=== PATIENT | male | born 1945 | race Caucasian/White ===

== ENCOUNTER 2021-03-01 02:44 | Inpatient (IN) | payer MEDICARE, OTHER ==
[~2021-03-01] VITALS: Ht 175.3 cm; Wt 75.7 kg
--- NOTE | 2021-03-01 02:50 | NUR ---
pt bibra c/o sob x30min. Pt aaox4 breathing rapidly. Pt has hx of esrd and refusing dialysis. Upon assessment pt has upper and lower extremity swelling. 18 g in rt ac initiated. Wheezes are heard upon assessment as well. Pt on 4L O2 NC saturating 97%. Pt attached to monitor and pox. Skin is warm, dry, and intact. Pt given blanket and call light within reach
--- NOTE | 2021-03-01 03:06 | NUR ---
called lab for specimen pickup and covid swab
--- NOTE | 2021-03-01 03:06 | NUR ---
blood obtained and sent to lab
[2021-03-01] MEDS ORDERED: FAMO40TA70 PO (03:19)
[2021-03-01] MEDS ORDERED: TRAZ-182 PO (03:19)
[2021-03-01] MEDS ORDERED: TAMS-12 PO (03:19)
[2021-03-01] MEDS ORDERED: VIT1TABL44 PO (03:19)
[2021-03-01] MEDS ORDERED: ALLO100T PO (03:19)
[2021-03-01] MEDS ORDERED: BICA50TA49 PO (03:19)
[2021-03-01] MEDS ORDERED: AMLO-212 PO (03:19)
[2021-03-01] MEDS ORDERED: CARV3.122 PO (03:19)
--- NOTE | 2021-03-01 03:21 | NUR ---
blood culture and covid swab sent to lab
[2021-03-01 03:33] LABS: BASOPHILS % (AUTO) 0.2 % (0.0-2.0); EOSINOPHILS % (AUTO) 0.2 % (0.0-6.0); HEMATOCRIT 28 % (39-51); HEMOGLOBIN 9.5 g/dL (13.5-17.5); LYMPHOCYTES # (AUTO) 1.2 /CMM (0.8-4.8); LYMPHOCYTES % (AUTO) 9.6 % (20.0-44.0); MEAN CORPUSCULAR HGB CONC 34 g/dl (31.0-36.0); MEAN CORPUSCULAR VOLUME 94 fL (80-96); MONOCYTES # (AUTO) 0.7 /CMM (0.1-1.30); MONOCYTES % (AUTO) 5.4 % (2.0-12.0); NEUTROPHILS # (AUTO) 10.7 /CMM (1.8-8.9); NEUTROPHILS % (AUTO) 84.6 % (43.0-81.0); PLATELET COUNT (AUTO) 118 /CMM (150-450); RED BLOOD CELL COUNT(AUTO) 3.03 MIL/uL (4.5-6.0); WHITE BLOOD COUNT (AUTO) 12.6 K/uL (4.3-11.0)
[2021-03-01 03:40] LABS: CALCIUM, SERUM 7.8 mg/dL (8.5-10.1); CARBON DIOXIDE 17 mmol/L (21-32); CHLORIDE 101 mmol/L (98-107); GLUCOSE 125 mg/dL (74-106); POTASSIUM 4.5 mmol/L (3.5-5.1); SODIUM SERUM 138 mmol/L (136-145)
[2021-03-01 03:42] LABS: CREATININE 8.5 mg/dL (0.6-1.3); UREA NITROGEN, BLOOD 132 mg/dL (7-18)
[2021-03-01 03:54] LABS: ALANINE AMINOTRANSFERASE 30 U/L (12-78); ALKALINE PHOSPHATASE 146 U/L (46-116); ASPARTATE AMINOTRANSFERASE 21 U/L (15-37); B-TYPE NATRIURETIC PEPTIDE 28423 PG/ML (0-125); BILIRUBIN,DIRECT 0.2 mg/dL (0.0-0.2); BILIRUBIN,TOTAL 0.5 mg/dL (0.2-1.0); TOTAL PROTEIN, SERUM 7.9 g/dL (6.4-8.2)
--- NOTE | 2021-03-01 03:57 | NUR ---
xray at bedside
[2021-03-01] MEDS ORDERED: CEFTRIAXONE 1GM BAG (ER ONLY) 1 GM/50 ML PIGGYBACK IV ONE (04:30)
[2021-03-01] MEDS ORDERED: AZITHROMYCIN 500 MG in IV D5W 250 ML IV ONE (04:30)
[2021-03-01] MEDS ORDERED: AZITHROMYCIN 500 MG VIAL ONE (04:38)
[2021-03-01] MEDS ORDERED: CEFTRIAXONE 1GM BAG (ER ONLY) 50 ML IV ONE (04:38)
[2021-03-01] MEDS ORDERED: MAG HYDROX/AL HYDROX/SIMETH 30 ML UDC PO PRN (05:30)
[2021-03-01] MEDS ORDERED: MORPHINE SULFATE INJ 2 MG/ML DISP.SYRIN IV PRN (05:30)
[2021-03-01] MEDS ORDERED: ONDANSETRON HCL/PF 4 MG/2 ML VIAL IVP PRN (05:30)
[2021-03-01] MEDS ORDERED: FUROSEMIDE 40 MG/4 ML VIAL IV ONE (05:30)
[2021-03-01] MEDS ORDERED: ACETAMINOPHEN 325 MG TABLET PO PRN (05:30)
[2021-03-01] MEDS ORDERED: HYDROCODONE/APAP 5/325MG TABLET PO PRN (05:30)
--- NOTE | 2021-03-01 05:40 | NUR ---
GAVE REPORT TO JAYLYN WYATT FOR LISET
[2021-03-01 06:00] VITALS: BP 112/68
[2021-03-01 06:11] VITALS: BP 112/68
[2021-03-01 06:11] LABS: MAGNESIUM 2.5 mg/dL (1.8-2.4)
--- NOTE | 2021-03-01 06:15 | NUR ---
PNEUMATIC PRESS HAND: ADMISSION 75 Y/O Male admitted for CHF r/o PNA. Skin checked done, skin intact. BLE edema. Patient is A/O x4. Instruction rehabilitation aide/scheduler light use, verbalized understanding. Afib in Tele monitor HR 108. No c/o pain, denies chest pain. On Oxygen support 4L via NC. Patient with POLST form DNR Comfort focused treatment signed by him on 06/08/19, patient wants to be Full code and Hemodialysis. Notified RAYON WINDER Bryan Hoffmann, awaiting response. Will endorse to oncoming RN.
[2021-03-01 06:17] LABS: PHOSPHORUS 8.7 mg/dL (2.5-4.9)
[2021-03-01 06:21] LABS: THYROID STIMULATING HORMONE 1.394 uIU/mL (0.358-3.74)
--- NOTE | 2021-03-01 07:15 | NUR ---
RN OPENING NOTES RECEIVED PT IN BED, A/O X4. ON 4L O2 VIA NC. SATURATING @98%. NO SOB OR ANY RESPIRATORY DISTRESS NOTED. TELE MONITOR SHOWS AFIB, HR @100S. SKIN IS INTACT. IV ACCESS AT RAC #18 INTACT, PATENT AND FLUSHED. NO PAIN REPORTED AT THIS TIME. SAFETY MEASURES IN PLACE. CALL LIGHT WITHIN REACH. BED LOCKED AND AT LOWEST POSITION WITH SIDE RAILS UP X3. WILL CONTINUE TO MONITOR.
[2021-03-01] MEDS ORDERED: FAMOTIDINE 40 MG TABLET PO SCH (07:30)
[2021-03-01 08:00] VITALS: BP 136/81
[2021-03-01] MEDS: FAMOTIDINE (20 MG) 20 MG TABLET PO SCH (08:18)
[2021-03-01] MEDS: BICALUTAMIDE 50 MG TABLET PO SCH (08:56)
[2021-03-01] MEDS: ALLOPURINOL 100 MG TABLET PO SCH (08:56)
[2021-03-01] MEDS: VIT B CMPLX 3/FA/VIT C/BIOTIN 1 TAB TABLET PO SCH (08:56)
[2021-03-01] MEDS: AMLODIPINE BESYLATE 5 MG TABLET PO SCH ×2 (08:57→17:00)
[2021-03-01] MEDS: CARVEDILOL 3.125 MG TABLET PO SCH ×2 (08:57→17:00)
[2021-03-01] MEDS: HEPARIN SODIUM, PORCINE 5000 UNITS/1 ML VIAL SQ SCH ×2 (09:03→21:09)
--- NOTE | 2021-03-01 09:59 | NUR ---
RN NOTES CALLED LAXMI (SON) REGARDING PATIENT'S CONCERN ON CODE STATUS AND DIALYSIS. SON SPOKE TO THE PT. DR. MOORE MADE AWARE AND SPOKE WITH THE SON FOR DECISION MAKING. WILL KEEP DNR STATUS AND NO DIALYSIS PER POL.
[2021-03-01 10:11] LABS: IRON, SERUM 38 ug/dl (50-175); TOTAL IRON BINDING CAPACITY 302 ug/dl (250-450)
[2021-03-01 10:24] LABS: FERRITIN 440 ng/mL (8-388)
[2021-03-01 12:00] VITALS: BP 122/60
[2021-03-01] MEDS: CITRIC ACID/SODIUM CITRATE (BICITRA)15 ML UDC PO SCH ×3 (12:46→21:07)
[2021-03-01 16:00] VITALS: BP 141/90
--- NOTE | 2021-03-01 17:08 | NUR ---
RN NOTES RIGHT IJ HD CATH HAS BEEN INSERTED. STAT CXR ORDERED FOR LINE PLACEMENT. PT FOR HD, BP MEDS ON HOLD.
[2021-03-01] MEDS: TAMSULOSIN 0.4 MG CAP.SR.24H PO SCH (18:24)
--- NOTE | 2021-03-01 18:45 | NUR ---
RN CLOSING NOTES PT RESTING IN BED. SATURATION AT 90-95%. NO SOB OR ANY DISTRESS NOTED. RIGHT IJ HD CATH NOTED. HD DONE 1L OUTPUT. NO SIGNIFICANT CHANGES THROUGHOUT THE SHIFT. NO PAIN REPORTED AT THIS TIME. SAFETY MEASURES MAINTAINED. ENDORSED TO NIGHT RN FOR CONTINUATION OF CARE.
[2021-03-01 20:00] VITALS: BP 136/69
--- NOTE | 2021-03-01 20:08 | NUR ---
RN NOTE PATIENT SITTING IN BED, ALERT AND ORIENTED X4. ON O2 4L VIA NASAL CANNULA, O2 SAT WNL. TELE MONITOR ON, HR 100'S. WITH RIGHT AC #18 PATENT AND INTACT. RIGHT IJ HD CATH, DRESSING CHANGED. NO S/S OF ANY INFECTION. DENIES ANY PAIN OR DISCOMFORT. BED LOCKED AND AT LOWEST POSITION. CALL LIGHT WITHIN REACH. WILL CONTINUE TO MONITOR.
[2021-03-01] MEDS: TRAZODONE 50 MG TABLET PO SCH (21:07)
[2021-03-02] VITALS (25 sets, daily range): BP systolic 105–135; BP diastolic 45–76
--- NOTE | 2021-03-02 06:01 | NUR ---
PATIENT REFUSED LAB DRAW AT THIS TIME. WET WASHER MACHINE WILL TRY AGAIN LATER.
--- NOTE | 2021-03-02 07:30 | NUR ---
RN OPENING NOTE PATIENT RECEIVED RESTING IN BED, ALERT AND ORIENTED X4. PATIENT ON O2 THERAPY VIA NASAL CANNULA AT 4 LPM, O2 SAT WNL. PATIENT RIGHT WRIST #22 PATENT AND INTACT. RIGHT IJ HD CATH DRESSING DRY AND INTACT. NO S/S OF ANY INFECTION. PATIENT DENIES ANY PAIN OR DISCOMFORT. SAFETY PRECAUTIONS IMPLEMENTED, BED LOCKED IN LOWEST POSITION, SIDE RAILS UP X2, CALL LIGHT WITHIN REACH. WILL CONTINUE TO MONITOR AND PROVIDE CARE THROUGHOUT SHIFT.
--- NOTE | 2021-03-02 07:39 | NUR ---
RN NOTE PATIENT SITTING IN BED, ALERT AND ORIENTED X4. ON O2 4L VIA NASAL CANNULA, O2 SAT WNL. WITH RIGHT WRIST #22 PATENT AND INTACT. RIGHT IJ HD CATH DRESSING DRY AND INTACT. NO S/S OF ANY INFECTION. DENIES ANY PAIN OR DISCOMFORT. BED LOCKED AND AT LOWEST POSITION. CALL LIGHT WITHIN REACH. ENDORSE TO AM SHIFT.
[2021-03-02] MEDS: CITRIC ACID/SODIUM CITRATE (BICITRA)15 ML UDC PO SCH ×4 (08:23→21:23)
[2021-03-02] MEDS: FAMOTIDINE (20 MG) 20 MG TABLET PO SCH (08:23)
[2021-03-02] MEDS: VIT B CMPLX 3/FA/VIT C/BIOTIN 1 TAB TABLET PO SCH (08:24)
[2021-03-02] MEDS: ALLOPURINOL 100 MG TABLET PO SCH (08:24)
[2021-03-02] MEDS: CARVEDILOL 3.125 MG TABLET PO SCH ×2 (08:24→17:00)
[2021-03-02] MEDS: AMLODIPINE BESYLATE 5 MG TABLET PO SCH ×2 (08:25→17:00)
[2021-03-02] MEDS: HEPARIN SODIUM, PORCINE 5000 UNITS/1 ML VIAL SQ SCH ×3 (08:25→21:25)
[2021-03-02] MEDS: BICALUTAMIDE 50 MG TABLET PO SCH (08:30)
[2021-03-02 09:14] LABS: BASOPHILS % (AUTO) 0.4 % (0.0-2.0); EOSINOPHILS % (AUTO) 0.8 % (0.0-6.0); HEMATOCRIT 25 % (39-51); HEMOGLOBIN 8.5 g/dL (13.5-17.5); LYMPHOCYTES % (AUTO) 16.4 % (20.0-44.0); MEAN CORPUSCULAR HGB CONC 34 g/dl (31.0-36.0); MEAN CORPUSCULAR VOLUME 94 fL (80-96); MONOCYTES # (AUTO) 0.3 /CMM (0.1-1.30); MONOCYTES % (AUTO) 5.5 % (2.0-12.0); NEUTROPHILS # (AUTO) 4.8 /CMM (1.8-8.9); NEUTROPHILS % (AUTO) 76.9 % (43.0-81.0); PLATELET COUNT (AUTO) 84 /CMM (150-450); RED BLOOD CELL COUNT(AUTO) 2.68 MIL/uL (4.5-6.0); WHITE BLOOD COUNT (AUTO) 6.2 K/uL (4.3-11.0)
[2021-03-02 09:40] LABS: ALANINE AMINOTRANSFERASE 22 U/L (12-78); ALBUMIN 3.7 g/dL (3.4-5.0); ALKALINE PHOSPHATASE 106 U/L (46-116); ASPARTATE AMINOTRANSFERASE 19 U/L (15-37); BILIRUBIN,TOTAL 0.6 mg/dL (0.2-1.0); CALCIUM, SERUM 7.7 mg/dL (8.5-10.1); CARBON DIOXIDE 21 mmol/L (21-32); CHLORIDE 101 mmol/L (98-107); GLUCOSE 137 mg/dL (74-106); MAGNESIUM 2.3 mg/dL (1.8-2.4); PHOSPHORUS 7.9 mg/dL (2.5-4.9); SODIUM SERUM 138 mmol/L (136-145); TOTAL PROTEIN, SERUM 7.3 g/dL (6.4-8.2)
[2021-03-02 09:45] LABS: UREA NITROGEN, BLOOD 102 mg/dL (7-18)
[2021-03-02 09:54] LABS: CREATINE KINASE, TOTAL 89 U/L (39-308); FERRITIN 451 ng/mL (8-388)
--- NOTE | 2021-03-02 15:50 | NUR ---
REGIONAL CONSTRUCTION MANAGER/RAPID RESPONSE/CODE BLUE RECORDER NOTES 1550 RAPID RESPONSE PAGED DUE TO SINUS BRADYCARDIA RHYTHM 39, PT WITH AGONAL AND SHALLOW BREATHING RATE OF 8. UNRESPONSIVE. PULSE PRESENT PT IS HAVING DIALYSIS, LAST VS @1449 BP 115/74, HR 85, SPO2 89%. MASK OXYGEN DELIVERED AT 15 LPM. 1552 RAPID RESPONSE TEAM CAME 1554 AMBU BAG STARTED 1555 CODE BLUE PAGED [address] SCHROEDER - FAY TO INTUBATE. CALLED BY CHARGE NURSE 1557 SIMON RAMOS SENIOR PRINCIPAL ARCHITECT NOTIFIED. CALLED BY CHARGE NURSE 1558 BP 148/80, HR 84 1559 SUCTION RENDERED, PT RESPONSIVE TO TACTILE 1600 SON MADE AWARE. CALLED BY CHARGE NURSE 1601 ETOMIDATE ADMINISTERED ORDERED [address] FORTE BP 149/100, HR 52, 96-100% SPO2. CXR AND EKG ORDERED BY 1609 REPORT FROM MAXIMINO LOUIS RN 1622 PT TRANSFERRED TO ICU
--- NOTE | 2021-03-02 15:50 | NUR ---
PATIENT ALMOST DONE WITH HEMODIALYSIS HR 37 ON MONITOR,CHECKED PATIENT ALTERED AND BRADYPNEIC INITIATED RAPID RESPONSE.
[2021-03-02 15:54] LABS: BILIRUBIN,URINE NEGATIVE (NEGATIVE); COLOR,URINE YELLOW (YELLOW); LEUKOCYTE ESTERASE ,URINE SMALL (NEGATIVE); NITRITE, URINE NEGATIVE (NEGATIVE); PH,URINE 5.5 (5.0-8.0); PROTEIN,URINE 100 mg/dl (NEGATIVE); UGLUCOSE NEGATIVE (NEGATIVE); UROBILINOGEN,URINE 0.2 EU/dL (0.2)
--- NOTE | 2021-03-02 15:55 | NUR ---
ESCALATED TO CODE BLUE BECOME AGONAL WITH PULSE.
[2021-03-02 16:00] LABS: BACTERIA,URINE 1+ /HPF (None Seen); SQUAMOUS EPITHELIAL CELL,UR 0-2 /HPF (None Seen)
--- NOTE | 2021-03-02 16:10 | NUR ---
PATIENT FOUND BRADYCARDIC WITH PULSE AND SHALLOW RESPIRATIONS POST DIALYSIS. PATIENT WAS ALTERED AND CONFUSED. PATIENT WAS VERY DIFFICULT TO AROUSE. RAPID RESPONSE CALLED FOR PATIENT. RN ADMINISTERED ETOMIDATE. PATIENT WAS INTUBATED THEREAFTER BY ER DOC. NO CHEST COMPRESSION ADMINISTERED. PATIENT THEN TRANSFERRED TO ICU. REPORT GIVEN TO ICU NURSE HERIBERTO.
--- NOTE | 2021-03-02 16:27 | NUR ---
RT Rapid response was called due pt being unresponsive with agonal breathing. Manual ventilation was started and pt was intubated with 7.5 ET tube secured at 26cm at the lip line. Positive CO2 color changed observed, equal bilateral breath sounds and chest rise noted. Pt was transferred to ICU and placed on mechanical ventilation with noted settings. Pt appears to be stable at this time. No SOB or respiratory distress noted. Addendum: 03/02/21 at 1658 by JOANNE CHAUDHARY RT Amended: Links added.
[2021-03-02 16:31] LABS: CREATININE, URINE 113.5 MG/DL (30.0-125.0); URINE TOTAL PROTEIN 302.3 mg/dL (0-11.9)
--- NOTE | 2021-03-02 16:41 | NUR ---
DR. DAHL AND [facility]ACHEL COMMUNITY HEALTH CONSULTANT NOTIFIED,SON PITO NOTIFIED AGREED WITH INTUBATION.
[2021-03-02 16:44] LABS: EOSINOPHIL,URINE None Seen
--- NOTE | 2021-03-02 16:50 | NUR ---
SLEEVE SETTER SAFETY STITCH NOTES RECEIVED PATIENT FROM TOÑA, S/P RAPID RESPONSE, PATIENT IS INTUBATED 7.04/09, AC 16, TV 550, FIO2 100%, PEEP OF 5, WILL START PROPOFOL PER PROTOCOL, IV ACCESS ON RIGHT HAND #22, RIGHT IJ, NOTED WITH BILATERAL SOFT WRIST RESTRAINT, SAFETY MEASURES IN PLACE, BED IN LOWEST LOCKED POSITION WITH SIDE RAILS UP X2, CALL LIGHT WITHIN EASY REACH. WILL CONTINUE TO MONITOR CLOSELY.
--- NOTE | 2021-03-02 16:53 | NUR ---
GLUCOSE CHECKED 127
[2021-03-02 17:17] LABS: BASOPHILS % (AUTO) 0.3 % (0.0-2.0); EOSINOPHILS % (AUTO) 0.7 % (0.0-6.0); HEMATOCRIT 25 % (39-51); HEMOGLOBIN 8.5 g/dL (13.5-17.5); LYMPHOCYTES # (AUTO) 0.5 /CMM (0.8-4.8); LYMPHOCYTES % (AUTO) 4.9 % (20.0-44.0); MEAN CORPUSCULAR HGB CONC 34 g/dl (31.0-36.0); MEAN CORPUSCULAR VOLUME 94 fL (80-96); MONOCYTES # (AUTO) 0.6 /CMM (0.1-1.30); MONOCYTES % (AUTO) 6.4 % (2.0-12.0); NEUTROPHILS # (AUTO) 8.3 /CMM (1.8-8.9); NEUTROPHILS % (AUTO) 87.7 % (43.0-81.0); PLATELET COUNT (AUTO) 68 /CMM (150-450); RED BLOOD CELL COUNT(AUTO) 2.69 MIL/uL (4.5-6.0); WHITE BLOOD COUNT (AUTO) 9.4 K/uL (4.3-11.0)
[2021-03-02 17:30] LABS: CALCIUM, SERUM 7.4 mg/dL (8.5-10.1); CARBON DIOXIDE 27 mmol/L (21-32); CHLORIDE 99 mmol/L (98-107); CREATININE 4.8 mg/dL (0.6-1.3); GLUCOSE 129 mg/dL (74-106); POTASSIUM 3.9 mmol/L (3.5-5.1); SODIUM SERUM 137 mmol/L (136-145); UREA NITROGEN, BLOOD 64 mg/dL (7-18)
[2021-03-02] MEDS ORDERED: NOREPINEPHRINE 8 MG in IV NS 0.9% 242 ML IV PRN (17:30)
[2021-03-02 17:35] LABS: ALANINE AMINOTRANSFERASE 23 U/L (12-78); ALBUMIN 3.7 g/dL (3.4-5.0); ALKALINE PHOSPHATASE 111 U/L (46-116); ASPARTATE AMINOTRANSFERASE 24 U/L (15-37); BILIRUBIN,TOTAL 0.9 mg/dL (0.2-1.0); MAGNESIUM 2.1 mg/dL (1.8-2.4); PHOSPHORUS 6.2 mg/dL (2.5-4.9); TOTAL PROTEIN, SERUM 7.3 g/dL (6.4-8.2)
[2021-03-02 17:36] LABS: BAND % (MANUAL) 3 % (0.0-5.0); LYMPHOCYTES % (MANUAL) 12 % (16-48); MONOCYTES % (MANUAL) 5 % (0-11.0); NEUTROPHILS % (MANUAL) 80 (42-76)
[2021-03-02 17:45] LABS: ABG BASE EXCESS -1.2 mmol/L; ABG OXYGEN SATURATION 99.3 % (92.0-98.5); ABG PCO2 39.6 mmHg (35.0-45.0); ABG PH 7.393 (7.350-7.450); ABG PO2 316.9 mmHg (75.0-100.0); AaDO2 356.5 mmHg; COHb 1.3 % (0.5-1.5); MetHb 1.3 % (0.0-1.5); O2Hb 96.7 % (94.0-97.0); PEEP,BG 5 cm H2O; SITE, ABG Right Radial; VT, ABG 550 mL
[2021-03-02] MEDS: PROPOFOL 100 ML IV PRN ×3 (17:52→23:50)
[2021-03-02] MEDS ORDERED: CEFTRIAXONE 1 G in IV D5W 50 ML IV SCH (18:00)
[2021-03-02] MEDS: TAMSULOSIN 0.4 MG CAP.SR.24H PO SCH (18:00)
[2021-03-02] MEDS ORDERED: PROPOFOL 100 ML IV PRN (18:00)
[2021-03-02 18:34] LABS: OCCULT BLOOD STOOL NEGATIVE (NEGATIVE)
[2021-03-02] MEDS ORDERED: ETOMIDATE 2 MG/ML VIAL IV ONE (18:34)
[2021-03-02] MEDS ORDERED: SUCCINYLCHOLINE CHLORIDE 20 MG/ML VIAL IV ONE (18:34)
--- NOTE | 2021-03-02 18:50 | NUR ---
AUTO CLAIMS ADJUSTER NOTES PATIENT IN BED, HOB ELEVATED, INTUBATED AND ON MECHANICAL VENT, 7.04/09, AC 16, TV 550, FIO2 60%, PEEP OF 5, NO SIGNS OF DISTRESS NOTED. IV ACCESS ON RIGHT HAND #22, RIGHT IJ, LAC#20 WITH PROPOFOL RUNNING @60 MCG/KG/MIN, OG TUBE INSERTED, PATENT AND VERIFIED BY RICKI, CHARGE NURSE, NOTED WITH BILATERAL SOFT WRIST RESTRAINT, SAFETY MEASURES IN PLACE, BED IN LOWEST LOCKED POSITION WITH SIDE RAILS UP X2, CALL LIGHT WITHIN EASY REACH. WILL ENDORSE TO ITEM PROCESSING CLERK NURSE FOR LISET.
--- NOTE | 2021-03-02 20:14 | NUR ---
MIDLINE INSERTION BEING PLACED.
[2021-03-02] MEDS: TRAZODONE 50 MG TABLET PO SCH (21:24)
[2021-03-02] MEDS ORDERED: CEFEPIME 1 GM in IV D5W 50 ML IV ONE (21:30)
--- NOTE | 2021-03-02 21:30 | NUR ---
UNABLE TO OBTAIN TEMPERATURE. JUDITH AJ APPLIED AND TEMP PROBE INSERTED THROUGH RIGHT NARE. TEMP READING AT 94.6 F.
[2021-03-02] MEDS ORDERED: CEFEPIME 1 GM VIAL ONE (22:27)
[2021-03-03] VITALS (74 sets, daily range): BP systolic 101–145; BP diastolic 48–88
--- NOTE | 2021-03-03 01:28 | NUR ---
RT NOTE Pt rec'd orally intubated via ETT size #7.5 secured at 26CM at the lipline. ETT is patent and secured. Pt sx'd for thin scant amt of clear secretions. Alarms are set and audible. ambu bag is bedside. Vent plugged into red outlet. Will continue to monitor closely. Addendum: 03/03/21 at 0130 by ETELVINA ANDRES RT Amended: Links added.
[2021-03-03] MEDS: PROPOFOL 100 ML IV PRN ×4 (02:43→22:33)
[2021-03-03 04:39] LABS: BASOPHILS % (AUTO) 0.4 % (0.0-2.0); EOSINOPHILS % (AUTO) 1.3 % (0.0-6.0); HEMATOCRIT 21 % (39-51); LYMPHOCYTES # (AUTO) 1.1 /CMM (0.8-4.8); LYMPHOCYTES % (AUTO) 20.8 % (20.0-44.0); MEAN CORPUSCULAR HGB CONC 34 g/dl (31.0-36.0); MEAN CORPUSCULAR VOLUME 95 fL (80-96); MONOCYTES # (AUTO) 0.5 /CMM (0.1-1.30); MONOCYTES % (AUTO) 8.8 % (2.0-12.0); NEUTROPHILS # (AUTO) 3.6 /CMM (1.8-8.9); NEUTROPHILS % (AUTO) 68.7 % (43.0-81.0); PLATELET COUNT (AUTO) 54 /CMM (150-450); RED BLOOD CELL COUNT(AUTO) 2.22 MIL/uL (4.5-6.0); WHITE BLOOD COUNT (AUTO) 5.2 K/uL (4.3-11.0)
[2021-03-03 04:51] LABS: CALCIUM, SERUM 7.2 mg/dL (8.5-10.1); CARBON DIOXIDE 25 mmol/L (21-32); CHLORIDE 101 mmol/L (98-107); CREATININE 5.5 mg/dL (0.6-1.3); GLUCOSE 68 mg/dL (74-106); MAGNESIUM 2.1 mg/dL (1.8-2.4); PHOSPHORUS 6.2 mg/dL (2.5-4.9); POTASSIUM 3.4 mmol/L (3.5-5.1); SODIUM SERUM 138 mmol/L (136-145); UREA NITROGEN, BLOOD 73 mg/dL (7-18)
[2021-03-03 05:07] LABS: PROSTATE SPECIFIC ANTIGEN SCR 1.98 ng/mL (0.00-4.00)
[2021-03-03 06:24] LABS: EOSINOPHILS % (MANUAL) 2 % (0-4); LYMPHOCYTES % (MANUAL) 19 % (16-48); MONOCYTES % (MANUAL) 15 % (0-11.0); NEUTROPHILS % (MANUAL) 64 (42-76)
[2021-03-03 07:06] LABS: PTH, INTACT 208 pg/mL (15-65)
--- NOTE | 2021-03-03 07:30 | NUR ---
RN OPENING NOTE PATIENT PRESENT IN BED, SEDATED, ON MECH VENT, TOLERATING SETTINGS WELL, NO SOB, NO DISTRESS NOTED, RESPIRATION EVEN AND EQUAL, SPO2 98% AT THIS TIME, OGT IN PLACE, CLUMPED, PLACEMENT CHECKED WITH AUSCULTATION AND XRAY, DILIP MID-LINE INTACT, FLUSHED, RUNNING PROPOFOL @MCG/KG/MIN, HD CATH INTACT, DRESSING CLEAN, BILATERAL SOFT WRIST RESTRAINS IN PLACED, CHECKED ACCORDING TO PROTOCOL, NO SWELLING NOTED, PULSES PRESENT, SKIN INTACT ; SAFETY MEASURE IN PLACE, HOB ELEVATED, BED LOCKED, LOWEST POSITION, WILL CONT TO MONITOR
[2021-03-03] MEDS: FAMOTIDINE (20 MG) 20 MG TABLET PO SCH (07:39)
[2021-03-03] MEDS: VIT B CMPLX 3/FA/VIT C/BIOTIN 1 TAB TABLET PO SCH (08:57)
[2021-03-03] MEDS: CITRIC ACID/SODIUM CITRATE (BICITRA)15 ML UDC PO SCH ×4 (08:57→20:34)
[2021-03-03] MEDS: ALLOPURINOL 100 MG TABLET PO SCH (08:57)
[2021-03-03] MEDS: BICALUTAMIDE 50 MG TABLET PO SCH (10:14)
[2021-03-03 10:28] LABS: ABG BASE EXCESS -1.9 mmol/L; ABG OXYGEN SATURATION 94.5 % (92.0-98.5); ABG PCO2 36.6 mmHg (35.0-45.0); ABG PH 7.407 (7.350-7.450); ABG PO2 79.7 mmHg (75.0-100.0); AaDO2 235.6 mmHg; COHb 0.9 % (0.5-1.5); MetHb 0.4 % (0.0-1.5); O2Hb 93.3 % (94.0-97.0); SITE, ABG Left Radial; VENT MODE, BG simv 4 psv 15 50% +5
[2021-03-03] MEDS ORDERED: MANNITOL 12.5 GM/50 ML VIAL IV SCH (11:00)
--- NOTE | 2021-03-03 11:01 | NUR ---
Couldn't tolerate weaning from vent trial. placed back to previous settings and sedation level
--- NOTE | 2021-03-03 11:02 | NUR ---
Telephone consent for blood transfusion obtained from the son Luther Soni
--- NOTE | 2021-03-03 11:41 | NUR ---
WOUND CARE CONSULT: PT INTUBATED AND IMMOBILE AT THIS TIME. LEFT HIP SCAR NOTED TO BE PRESENT ON ADMISSION. GENERALIZED EDEMA NOTED. RECOMMENDATIONS MADE FOR SKIN PROTECTION. DISCUSSED WITH NURSING STAFF. PT IS INCONTINENT OF STOOL. IN AGREEMENT WITH PLAN OF CARE. Addendum: 03/03/21 at 1142 by JENNY HILL WNDNU Amended: Links added.
[2021-03-03] MEDS: Z GUARD REMEDY 2 OZ OINT TP SCH (12:00)
[2021-03-03] MEDS ORDERED: Z GUARD REMEDY 2 OZ OINT TP PRN (12:00)
[2021-03-03] MEDS ORDERED: IV MANNITOL 20% 250 ML IV PRN (13:30)
--- NOTE | 2021-03-03 14:22 | NUR ---
Picked up blood from blood bank
--- NOTE | 2021-03-03 14:41 | NUR ---
Initiate blood transfusion, dialyses RN at bed site giving blood during procedure
--- NOTE | 2021-03-03 15:13 | NUR ---
Finished transfusion via dialyses, tolerated well, stable VS, cont to monitor, dialyses RN at bed site
[2021-03-03] MEDS: TAMSULOSIN 0.4 MG CAP.SR.24H PO SCH (17:14)
--- NOTE | 2021-03-03 18:31 | NUR ---
RN CLOSING NOTES REMINS IN BED, STABLE THROUGH THE SHIFT, NO ACUTE CHANGES NOTED, TOLERATED HD WELL, 350CC OUT, PLANNING TO DO NEXT HD ON 03/04/2021. MEDICATIONS GIVEN, CLEANED AND REPOSITIONED, COMFORT NEEDS ATTENDED, SAFETY MEASURES IMPLEMENTED, HOB ELEVATED, BED LOCKED, IN LOWEST POSITION, WILL ENDORSE TO PM SHIFT RN FOR LISET
--- NOTE | 2021-03-03 19:26 | NUR ---
RN NOTES RECEIVED PATIENT SEDATED WITH DIPRIVAN. ORALLY INTUBATED ETT7.5 AND 26 CM AT LIP CONNECTED TO VENT SETTING AC 16 TV 550 FIO2 50% AND PEEP 5 . NO ACUTE RESPIRATORY DISTRESS. SB ON MONITOR IV SITE ON DILIP MIDLINE INTACT AND PATENT WITH PROPOFOL @ 35 TITRATED DOWN TO 30 MCG/KG/MIN. AND LAC G 20 INTACT. PT IS SEDATED. RIJ JANELLE CATH INTACT AND PATENT. KEPT PT CLEAN AND DRY. WILL CONT. TO MONITOR.
--- NOTE | 2021-03-03 20:16 | NUR ---
RECEIVED PT INTUBATED ON VENT. 7.5 ETT SECURED AT 26 CM AT THE LIP. NO RESP DISTRESS. PT TOLERATING VENT SETTINGS. VENT ALARMS SET AND AUDIBLE. CONTINUE TO MONITOR. Addendum: 03/03/21 at 2017 by STACEY CALERO RT Amended: Links added.
[2021-03-03] MEDS: TRAZODONE 50 MG TABLET PO SCH (22:00)
--- NOTE | 2021-03-03 22:29 | NUR ---
RN NOTES TRAZADONE IS NOT GIVEN AT THIS TIME PATIENT IS ALREADY SEDATED WITH DIPRIVAN.
[2021-03-03] MEDS: CEFEPIME 1 GM in IV D5W 50 ML IV SCH (23:27)
[2021-03-04] VITALS (30 sets, daily range): BP systolic 112–167; BP diastolic 22–105
[2021-03-04] MEDS: PROPOFOL 100 ML IV PRN (04:40)
--- NOTE | 2021-03-04 06:48 | NUR ---
RN NOTES NO SIGNIFICANT CHANGES THROUGHOUT THE SHIFT. AFEBRILE. VSS, SB LOWEST HR 39 SATURATION WELL 9>95%. ETT AND VENT SETTING TOLERATED WELL. REMAINED SEDATED WITH DIPRIVAN TITRATED PROTOCOL ORDER. ALL DUE MEDICINE ADMINISTERED NO ASE PRESENT. KEPT PT CLEAN AND DRY. WILL ENDORSED CONTINUITY OF CARE TO AM NURSE.
--- NOTE | 2021-03-04 07:30 | NUR ---
REPORT RECEIVED FROM YENNIFER DE LA O. PT INTUBATED AND SEDATED ON PROPOFOL. PT IS ANURIC, HD PATIENT. PER DR. DAHL PT WILL GET DIALYSIS TODAY. PT CHECKED ON HOURLY AND PRN BY NURSING STAFF.
[2021-03-04 07:44] LABS: BASOPHILS % (AUTO) 0.5 % (0.0-2.0); EOSINOPHILS % (AUTO) 1.1 % (0.0-6.0); HEMATOCRIT 26 % (39-51); HEMOGLOBIN 8.7 g/dL (13.5-17.5); LYMPHOCYTES # (AUTO) 1.1 /CMM (0.8-4.8); LYMPHOCYTES % (AUTO) 20.6 % (20.0-44.0); MEAN CORPUSCULAR HGB CONC 34 g/dl (31.0-36.0); MEAN CORPUSCULAR VOLUME 95 fL (80-96); MONOCYTES # (AUTO) 0.4 /CMM (0.1-1.30); MONOCYTES % (AUTO) 8.4 % (2.0-12.0); NEUTROPHILS # (AUTO) 3.6 /CMM (1.8-8.9); NEUTROPHILS % (AUTO) 69.4 % (43.0-81.0); PLATELET COUNT (AUTO) 63 /CMM (150-450); RED BLOOD CELL COUNT(AUTO) 2.69 MIL/uL (4.5-6.0); WHITE BLOOD COUNT (AUTO) 5.2 K/uL (4.3-11.0)
[2021-03-04] MEDS ORDERED: DC PROPOFOL WHEN EXTUBATED XX PRN (08:00)
[2021-03-04 08:12] LABS: CALCIUM, SERUM 7.8 mg/dL (8.5-10.1); CARBON DIOXIDE 26 mmol/L (21-32); CHLORIDE 100 mmol/L (98-107); CREATININE 4.8 mg/dL (0.6-1.3); GLUCOSE 73 mg/dL (74-106); POTASSIUM 3.5 mmol/L (3.5-5.1); SODIUM SERUM 139 mmol/L (136-145); UREA NITROGEN, BLOOD 59 mg/dL (7-18)
--- NOTE | 2021-03-04 08:18 | NUR ---
PER DR. AMATO PROPOFOL TURNED DOWN TO 15 MCG/KG TO WAKE PATIENT UP FOR WEANING. WILL OBSERVE PT CLOSELY
--- NOTE | 2021-03-04 08:25 | NUR ---
PT AWAKE, COOPERATIVE, FOLLOWING COMMANDS, RESPONDING TO QUESTIONS APPROPRIATELY. PT DR. AMATO AN ABG WILL BE DONE IN 15 MINUTES. PT INSTRUCTED TO REMAIN CALM AND RELAX, PT INDICATED UNDERSTANDING
[2021-03-04] MEDS ORDERED: TRAZODONE 50 MG TABLET GT SCH (08:28)
[2021-03-04] MEDS ORDERED: ALLOPURINOL 100 MG TABLET GT SCH (08:28)
[2021-03-04] MEDS ORDERED: BICALUTAMIDE 50 MG TABLET GT SCH (08:28)
[2021-03-04] MEDS ORDERED: VIT B CMPLX 3/FA/VIT C/BIOTIN 1 TAB TABLET GT SCH (08:29)
[2021-03-04] MEDS ORDERED: MAG HYDROX/AL HYDROX/SIMETH 30 ML UDC GT PRN (08:29)
[2021-03-04] MEDS ORDERED: HYDROCODONE/APAP 5/325MG TABLET GT PRN (08:29)
[2021-03-04] MEDS ORDERED: FAMOTIDINE (20 MG) 20 MG TABLET GT SCH (08:29)
[2021-03-04] MEDS ORDERED: TAMSULOSIN 0.4 MG CAP.SR.24H GT SCH (08:29)
[2021-03-04] MEDS ORDERED: PHARMACY TO CHANGE PO MEDS TO GT/NG XX PRN (08:30)
[2021-03-04] MEDS: Z GUARD REMEDY 2 OZ OINT TP SCH (08:45)
[2021-03-04] MEDS: CITRIC ACID/SODIUM CITRATE (BICITRA)15 ML UDC GT SCH ×2 (08:45→13:00)
[2021-03-04 08:51] LABS: ABG BASE EXCESS 2.8 mmol/L; ABG OXYGEN SATURATION 95.6 % (92.0-98.5); ABG PCO2 34.6 mmHg (35.0-45.0); ABG PH 7.495 (7.350-7.450); ABG PO2 82.4 mmHg (75.0-100.0); COHb 1.2 % (0.5-1.5); MetHb 0.5 % (0.0-1.5); SITE, ABG Right Radial
--- NOTE | 2021-03-04 08:55 | NUR ---
RT PATIENT EXTUBATED PER DR HENRIQUEZ ORDERS AND PLACED ON SUPPLEMENTAL O2. PATIENT AWAKE, RESPONSIVE, ZERO SOB.
[2021-03-04] MEDS ORDERED: ACETAMINOPHEN 650 MG/20.3 ML UDC PO PRN (09:00)
[2021-03-04] MEDS ORDERED: ACETAMINOPHEN 650 MG/20.3 ML UDC GT PRN (09:00)
--- NOTE | 2021-03-04 09:02 | NUR ---
PT EXTUBATED AT THIS TIME WITHOUT DIFFICULTY BY RT PER MD ORDERS. PT PLACED ON 5L NC. RESTRAINTS REMOVED. PT ALERT AND COOPERATIVE. OG TUBE REMOVED WITH ETT. MEDS GIVEN PER OG TUBE PRIOR TO EXTUBATION. WILL CONTINUE TO MONITOR.
[2021-03-04 09:07] LABS: *SPE ALBUMIN 3.3 g/dL (2.9-4.4); *SPE ALPHA-1-GLOBULIN 0.3 g/dL (0.0-0.4); *SPE ALPHA-2-GLOBULIN 0.9 g/dL (0.4-1.0); *SPE BETA GLOBULIN 0.9 g/dL (0.7-1.3); *SPE GLOBULIN, TOTAL 3.2 g/dL (2.2-3.9); *SPE M-SPIKE Not Observed g/dL (Not Observed)
[2021-03-04 09:43] LABS: EOSINOPHILS % (MANUAL) 3 % (0-4); LYMPHOCYTES % (MANUAL) 18 % (16-48); MONOCYTES % (MANUAL) 5 % (0-11.0); NEUTROPHILS % (MANUAL) 74 (42-76)
[2021-03-04] MEDS ORDERED: DC PROPOFOL WHEN EXTUBATED XX SCH (11:00)
[2021-03-04] MEDS ORDERED: PHARMACY TO CHANGE GT/NG MEDS TO PO XX PRN (17:30)
[2021-03-04] MEDS ORDERED: MAG HYDROX/AL HYDROX/SIMETH 30 ML UDC PO PRN (18:00)
[2021-03-04] MEDS ORDERED: ACETAMINOPHEN 325 MG TABLET PO PRN (18:00)
[2021-03-04] MEDS ORDERED: HYDROCODONE/APAP 5/325MG TABLET PO PRN (18:00)
[2021-03-04] MEDS: TAMSULOSIN 0.4 MG CAP.SR.24H PO SCH (18:04)
--- NOTE | 2021-03-04 19:00 | NUR ---
END OF SHIFT NOTE: NO CHANGES SINCE PATIENT WAS EXTUBATED THIS AM. PT CONTINUES TO BE ON 5L NC. PT MOVES BY SELF IN BED WITHOUT DIFFICULTY. PT IS INCONTINENT OF BOWEL AND BLADDER. HD TODAY 1100 OFF. PT IS ALERT, PLEASANT, FOLLOWS COMMANDS BUT FORGETFUL AND NEEDS TO BE REMINDED TO NOT TAKE OFF OXYGEN OR SAT PROBE. PT CHECKED ON HOURLY AND PRN BY NURSING STAFF.
--- NOTE | 2021-03-04 20:00 | NUR ---
RN NOTES RECEIVED PATIENT RESTING ON BED WITH O2 5LPM VIA NC SATURATION 88-90% S/P EXTUBATED THIS MORNING. PATIENT IS ALERT ORIENTED X 2. DENIES PAIN. AFEBRILE. PATIENT IS IN AND OUT AFIB ON MONITOR. IV SITE ON DILIP MIDLINE AND LAC INTACT AND PATENT. RIJ JANELLE CATH WITH MOD. BLOOD LEAK MIGHT BE DUE TO PATIENT IS A LITTLE BIT RESTLESS. WILL MONITOR CLOSELY . INCONTINENT CARE RENDERED HOB KEPT ELEVATED FOR BETTER OXYGENATION. KEPT PT CLEAN AND DRY. WILL CONT TO MONITOR.
[2021-03-04] MEDS: TRAZODONE 50 MG TABLET PO SCH (22:00)
--- NOTE | 2021-03-04 22:00 | NUR ---
RN NOTES PATIENT IS RESTLESS, TACHYPNEIC RR ON 30'S AOX2, DENIES PAIN. ST ON MONITOR. SATURATION MAINTAINING 88-90% SIMPLE MASK INITIATED @ 8-10 LPM VIA SM SATURATION WENT UP TO 92-93% REMAINED TACHYPNEIC WILL CLOSELY MONITOR.
--- NOTE | 2021-03-04 23:00 | NUR ---
RN NOTES PATIENT REMAINED RESTLESS. SATURATION IS GOING DOWN TO 86% VIA SM . NON REBREATHER MASK INITIATED , REPOSITION PATIENT AND MAKE HIM COMFORTABLE. HOB KEPT ELEVATED SATURATION WENT UP TO 95%. WILL CONTINUE TO MONITOR.
[2021-03-04] MEDS: CEFEPIME 1 GM in IV D5W 50 ML IV SCH (23:18)
[2021-03-05] VITALS (24 sets, daily range): BP systolic 118–147; BP diastolic 49–96
[2021-03-05 04:32] LABS: BASOPHILS % (AUTO) 0.5 % (0.0-2.0); EOSINOPHILS % (AUTO) 0.4 % (0.0-6.0); HEMATOCRIT 22 % (39-51); HEMOGLOBIN 7.4 g/dL (13.5-17.5); MEAN CORPUSCULAR HGB CONC 33 g/dl (31.0-36.0); MEAN CORPUSCULAR VOLUME 96 fL (80-96); MONOCYTES # (AUTO) 0.6 /CMM (0.1-1.30); MONOCYTES % (AUTO) 8.2 % (2.0-12.0); NEUTROPHILS # (AUTO) 5.7 /CMM (1.8-8.9); NEUTROPHILS % (AUTO) 77.9 % (43.0-81.0); PLATELET COUNT (AUTO) 64 /CMM (150-450); RED BLOOD CELL COUNT(AUTO) 2.31 MIL/uL (4.5-6.0); WHITE BLOOD COUNT (AUTO) 7.3 K/uL (4.3-11.0)
[2021-03-05 04:50] LABS: CALCIUM, SERUM 7.5 mg/dL (8.5-10.1); CARBON DIOXIDE 28 mmol/L (21-32); CHLORIDE 97 mmol/L (98-107); CREATININE 4.1 mg/dL (0.6-1.3); GLUCOSE 197 mg/dL (74-106); POTASSIUM 3.3 mmol/L (3.5-5.1); SODIUM SERUM 134 mmol/L (136-145); UREA NITROGEN, BLOOD 44 mg/dL (7-18)
--- NOTE | 2021-03-05 06:53 | NUR ---
RN NOTES PATIENT SLEEP WELL. NO ACUTE RESPIRATORY DISTRESS TOLERATED NRB @ 12 LPM. SATURATION REMAINED >96%. AFEBRILE. VSS, FREQ. REMINDED NEEDED WHEN WHILE AWAKE TO NOT REMOVE O2. RISK AND BENEFITS EXPLAINED. KEPT PT CLEAN AND COMFORTABLE IN BED. KEPT PT CLEAN AND DRY. ALL DUE MEDS TOLERATED WELL. WILL ENDORSED CONTINUITY OF CARE TO AM NURSE.
--- NOTE | 2021-03-05 07:30 | NUR ---
REPORT RECEIVED FROM YENNIFER DE LA O. PT ALERT OX2, VERY PLEASANT BUT FORGETFUL. PT CURRENTLY ON NRB MASK, PLACED OVERNIGHT. PLAN FOR TODAY IS SWALLOW EVAL, POSSIBLE DIALYSIS IF ORDERED BY DR DAHL. PT CHECKED ON HOURLY AND PRN BY NURSING STAFF.
--- NOTE | 2021-03-05 08:48 | NUR ---
PER DR. DAHL NO DIALYSIS FOR PATIENT TODAY
[2021-03-05] MEDS: ALLOPURINOL 100 MG TABLET PO SCH (09:32)
[2021-03-05] MEDS: VIT B CMPLX 3/FA/VIT C/BIOTIN 1 TAB TABLET PO SCH (09:32)
[2021-03-05] MEDS: FAMOTIDINE (20 MG) 20 MG TABLET PO SCH (09:32)
[2021-03-05] MEDS: BICALUTAMIDE 50 MG TABLET PO SCH (09:33)
[2021-03-05] MEDS: Z GUARD REMEDY 2 OZ OINT TP SCH (09:33)
[2021-03-05] MEDS: ACETYLCYSTEINE 10% SOLN 400 MG/4 ML VIAL NEB SCH ×2 (10:00→15:19)
--- NOTE | 2021-03-05 18:20 | NUR ---
END OF SHIFT NOTE: DR DAHL REVIEWED LABS AND ORDERED DIALYSIS. DIALYSIS STARTED AT 1710. PT STARTED OFF THE SHIFT ON 6L NC, CHANGED TO VENTI MASK AT 50% AT 0822, THEN PUT ON 12L SIMPLE MASK AT 1422. PT KEPT REMOVING MASK DESPITE REPEATED INSTRUCTIONS TO LEAVE THE MASK ON. PT'S DESAT EASILY INTO THE MID 80'S. PT ALSO PULLED OUT LAC SL. RESTRAINTS APPLIED, TEACHING DONE WITH PATIENT. PT STATED UNDERSTANDING. PT WAS INCONTINENT OF URINE X2 THIS SHIFT, NO BM. PT CHECKED ON HOURLY AND PRN BY NURSING STAFF.
--- NOTE | 2021-03-05 18:24 | NUR ---
1800 FLOMAX HELD UNTIL AFTER DIALYSIS
[2021-03-05] MEDS: TAMSULOSIN 0.4 MG CAP.SR.24H PO SCH (19:53)
[2021-03-05] MEDS: TRAZODONE 50 MG TABLET PO SCH (21:17)
--- NOTE | 2021-03-05 21:46 | NUR ---
ICU/COMPENSATION ADMINISTRATOR PT'S SATURATION WAS DECREASED, PT WAS CHANGED OVER TO A NON-REBREATHER AT 15 LITERS. ALSO SUCTIONED THE PT, DUE TO COUGHING. WILL MONITOR THIS PT AND HIS SATURATION.
--- NOTE | 2021-03-05 23:24 | NUR ---
RT NOTE PT CURRENTLY ON 100% NONBREATHER MASK @ 15LPM DUE TO LOW SPO2. NURSE REGINA NOTED PT AGITATED. WILL CONTINUE TO MONITOR CLOSELY. NO DISTRESS NOTED AT THIS TIME.
[2021-03-06] VITALS (26 sets, daily range): BP systolic 118–153; BP diastolic 55–91
--- NOTE | 2021-03-06 00:35 | NUR ---
ICU/BIOSOLIDS MANAGEMENT TECHNICIAN PT WAS GIVEN 2330 RESP. TREATMENT AT THIS TIME. PT WAS ASLEEP EARLIER. AFTER TREATMENT THEN PT WAS CHANGED OVER TO A SIMPLE MASK. WILL CONTINUE TO [id number] THIS PT.
[2021-03-06] MEDS: ACETYLCYSTEINE 10% SOLN 400 MG/4 ML VIAL NEB SCH ×4 (00:40→22:59)
--- NOTE | 2021-03-06 03:34 | NUR ---
RT NOTE NASOTRACHAEL SUCTION PERFORMED ON PATIENT. MODERATE THICK BLOODY WHITE SECRETIONS NOTED. B/S IMPROVED. NO DISTRESS NOTED. SPO2 97% HR 75, RR 18. NURSE REGINA NOTIFIED.
--- NOTE | 2021-03-06 03:41 | NUR ---
ICU/SAW FEEDER RT CAME DOWN TO SUCTION PT. PT SOUNDS VERY CONGESTED AND A WET COUGH. PT WAS POST SUCTION IS SATURATION OF 99%. WILL CONTINUE TO MONITOR THIS PT.
[2021-03-06 04:30] LABS: BASOPHILS % (AUTO) 0.6 % (0.0-2.0); EOSINOPHILS % (AUTO) 1.8 % (0.0-6.0); MEAN CORPUSCULAR HGB CONC 34 g/dl (31.0-36.0); MEAN CORPUSCULAR VOLUME 97 fL (80-96)
[2021-03-06 04:46] LABS: CARBON DIOXIDE 31 mmol/L (21-32); CHLORIDE 102 mmol/L (98-107); CREATININE 3.7 mg/dL (0.6-1.3); GLUCOSE 72 mg/dL (74-106); POTASSIUM 3.4 mmol/L (3.5-5.1); SODIUM SERUM 144 mmol/L (136-145); UREA NITROGEN, BLOOD 37 mg/dL (7-18)
[2021-03-06 05:04] LABS: HEMATOCRIT 21 % (39-51); HEMOGLOBIN 7.2 g/dL (13.5-17.5); LYMPHOCYTES # (AUTO) 1.2 /CMM (0.8-4.8); LYMPHOCYTES % (AUTO) 18.1 % (20.0-44.0); MONOCYTES # (AUTO) 0.6 /CMM (0.1-1.30); NEUTROPHILS # (AUTO) 4.5 /CMM (1.8-8.9); NEUTROPHILS % (AUTO) 70.5 % (43.0-81.0); PLATELET COUNT (AUTO) 74 /CMM (150-450); WHITE BLOOD COUNT (AUTO) 6.4 K/uL (4.3-11.0)
[2021-03-06 05:43] LABS: LYMPHOCYTES % (MANUAL) 12 % (16-48); MONOCYTES % (MANUAL) 13 % (0-11.0); NEUTROPHILS % (MANUAL) 75 (42-76)
--- NOTE | 2021-03-06 07:25 | NUR ---
RN OPENING NOTE PATIENT RECEIVED RESTING IN HIGH FOWLERS POSITION. PATIENT ON O2 THERAPY VIA SIMPLE FACE MASK AT 8 LPM, TOLERATING WELL, SATURATION 96%. PATIENT IS A&O X 2 WITH EPISODES OF FORGETFULNESS AND CONFUSION. CONGESTION NOTED WITH BILATERAL LOWER EXTREMITY EDEMA. RIGHT UPPER ARM MIDLINE INTACT AND PATENT. RIGHT IJ JANELLE CATH NOTED. SAFETY PRECAUTIONS IMPLEMENTED, BED LOCKED IN LOWEST POSITION, SIDE RAILS UP X2, CALL LIGHT WITHIN REACH. WILL CONTINUE TO MONITOR AND PROVIDE CARE THROUGHOUT SHIFT.
[2021-03-06] MEDS: ALLOPURINOL 100 MG TABLET PO SCH (09:00)
[2021-03-06] MEDS: Z GUARD REMEDY 2 OZ OINT TP SCH (09:00)
[2021-03-06] MEDS: BICALUTAMIDE 50 MG TABLET PO SCH (09:00)
[2021-03-06] MEDS: VIT B CMPLX 3/FA/VIT C/BIOTIN 1 TAB TABLET PO SCH (09:00)
[2021-03-06] MEDS: FAMOTIDINE (20 MG) 20 MG TABLET PO SCH (09:00)
[2021-03-06 09:40] LABS: IRON, SERUM 83 ug/dl (50-175); TOTAL IRON BINDING CAPACITY 203 ug/dl (250-450)
--- NOTE | 2021-03-06 09:56 | NUR ---
speech therapy recommended to start client on pureed diet. online advertising manager did not approve and wants to start client on feeding once client is on O2 treatment via NC. patient is currently on simple face mask at 8 LPM
[2021-03-06] MEDS: POTASSIUM CHLORIDE 20 MEQ TAB.PRT.SR PO SCH ×2 (10:03→11:10)
[2021-03-06 10:37] LABS: FERRITIN 880 ng/mL (8-388)
[2021-03-06] MEDS: TAMSULOSIN 0.4 MG CAP.SR.24H PO SCH (17:16)
--- NOTE | 2021-03-06 18:48 | NUR ---
RN CLOSING NOTE PATIENT RESTING IN HIGH FOWLERS POSITION. PATIENT ON O2 THERAPY VIA SIMPLE FACE MASK AT 7 LPM, TOLERATING WELL, SATURATION 96%. PATIENT IS A&O X 2 WITH EPISODES OF FORGETFULNESS AND CONFUSION. CONGESTION NOTED WITH BILATERAL LOWER EXTREMITY EDEMA. RIGHT UPPER ARM MIDLINE INTACT AND PATENT. RIGHT IJ JANELLE CATH NOTED. SAFETY PRECAUTIONS IMPLEMENTED, BED LOCKED IN LOWEST POSITION, SIDE RAILS UP X2, CALL LIGHT WITHIN REACH. WILL ENDORSE CONTINUATION OF CARE TO UPCOMING SHIFT.
--- NOTE | 2021-03-06 19:30 | NUR ---
RN NOTES RECEIVED PATIENT IN BED RESTING CONTINUES ON O2 7L/MIN VIA SIMPLE MASK SATURATING 98%. PATIENT IS AOX2 WITH PERIODS OF FORGETFULNESS AND CONFUSION. IV SITE DILIP MIDLINE INTACT PATENT FLUSHES WELL. RIJ JANELLE CATH INTACT NO S/S OF BLEEDING NO SWELLING NOTED. BILATERAL SOFT WRIST RESTRAIN IN PLACE FOR SAFETY RELEASING Q2H FOR SKIN ASSESSMENT NO S/S OF SKIN BREAKDOWN NOTED. ALL SAFETY MEASURES IN PLACE, CALL LIGHT WITHIN REACH. WILL CONT TO MONITOR OR LISET.
[2021-03-06] MEDS: TRAZODONE 50 MG TABLET PO SCH (21:27)
[2021-03-07] VITALS (27 sets, daily range): BP systolic 113–153; BP diastolic 63–87
--- NOTE | 2021-03-07 01:15 | NUR ---
NASOTRACHAEL SUCTION PERFORMED ON PATIENT. SUCTIONED MODERATE AMOUNT OF WHITE THICK WITH PINK TINGED SECRETIONS . BS IMPROVED , SPO2 94%., RR 26, HR,109. JAYLYN CASTRO NOTIFIED
[2021-03-07 04:45] LABS: BASOPHILS % (AUTO) 0.4 % (0.0-2.0); EOSINOPHILS % (AUTO) 0.3 % (0.0-6.0); HEMATOCRIT 21 % (39-51); HEMOGLOBIN 7.1 g/dL (13.5-17.5); LYMPHOCYTES # (AUTO) 0.9 /CMM (0.8-4.8); LYMPHOCYTES % (AUTO) 8.2 % (20.0-44.0); MEAN CORPUSCULAR HGB CONC 34 g/dl (31.0-36.0); MEAN CORPUSCULAR VOLUME 98 fL (80-96); MONOCYTES # (AUTO) 0.8 /CMM (0.1-1.30); NEUTROPHILS # (AUTO) 9.2 /CMM (1.8-8.9); NEUTROPHILS % (AUTO) 84.1 % (43.0-81.0); PLATELET COUNT (AUTO) 86 /CMM (150-450); RED BLOOD CELL COUNT(AUTO) 2.14 MIL/uL (4.5-6.0); WHITE BLOOD COUNT (AUTO) 10.9 K/uL (4.3-11.0)
[2021-03-07 04:51] LABS: CALCIUM, SERUM 8.5 mg/dL (8.5-10.1); CARBON DIOXIDE 27 mmol/L (21-32); CHLORIDE 100 mmol/L (98-107); GLUCOSE 131 mg/dL (74-106); POTASSIUM 4.1 mmol/L (3.5-5.1); SODIUM SERUM 141 mmol/L (136-145); UREA NITROGEN, BLOOD 52 mg/dL (7-18)
[2021-03-07 05:18] LABS: EOSINOPHILS % (MANUAL) 1 % (0-4); LYMPHOCYTES % (MANUAL) 10 % (16-48); MONOCYTES % (MANUAL) 9 % (0-11.0); NEUTROPHILS % (MANUAL) 80 (42-76)
--- NOTE | 2021-03-07 07:26 | NUR ---
RN NOTES GAVE REPORT TO AM NURSE FOR LISET. PATIENT IS NOW ON NON REBREATHER 15L/MIN SATURATING 99%. BREATHING NORMAL NO SOB AT THIS TIME. NO DISTRESS NOTED. BILATERAL SOFT WRIST RESTRAINS IN PLACE, SKIN CHECK DONE NO S/S OF SKIN BREAKDOWN NOTED, NO SWELLING NOTED. AM CARE PROVIDED KEPT CLEAN DRY AND COMFORTABLE. ALL SAFETY MEASURES IN PLACE, CALL LIGHT WITHIN REACH.
--- NOTE | 2021-03-07 07:30 | NUR ---
HAT FORMER OPENING NOTE PT A/Ox2 LYING IN BED SEMIFOWLERS ON NRB 15LPM, SPO2 100%, NO SIGNS OF RESP DISTRESS OR SOB, BREATHING EVEN AND UNLABORED, COUGH NOTED. PT NSR 90s TO SINUS TACHY LOW 100s ON BEDSIDE MONITOR. PT DENIES PAIN AND DISCOMFORT. PT DILIP MIDLINE FLUSHED, INTACT AND PATENT WITH NO SIGNS OF INFILTRATION/INFECTION, SL. PT RIJ JANELLE INTACT WITH NO SIGNS OF BLEEDING OR SWELLING. PT SKIN IS INTACT, PT BILAT SOFT WRIST RESTRAINTS IN PLACE, CMS INTACT. PT HAS BLE EDEMA. ALL PT SAFETY PRECAUTION IN PLACE, WILL CONT TO MONITOR
[2021-03-07] MEDS: ACETYLCYSTEINE 10% SOLN 400 MG/4 ML VIAL NEB SCH ×3 (07:43→23:48)
[2021-03-07] MEDS: BICALUTAMIDE 50 MG TABLET PO SCH (08:15)
[2021-03-07] MEDS: VIT B CMPLX 3/FA/VIT C/BIOTIN 1 TAB TABLET PO SCH (08:15)
[2021-03-07] MEDS: FAMOTIDINE (20 MG) 20 MG TABLET PO SCH (08:15)
[2021-03-07] MEDS: ALLOPURINOL 100 MG TABLET PO SCH (08:15)
--- NOTE | 2021-03-07 08:30 | NUR ---
NASOTRACHAEL SUCTION PERFORMED ON PATIENT. SUCTIONED MODERATE AMOUNT OF THICK WHITE WITH PINK TINGED SECRETIONS. PT TOLERATED WELL. SPO2 99%
[2021-03-07] MEDS: Z GUARD REMEDY 2 OZ OINT TP SCH (09:55)
--- NOTE | 2021-03-07 15:55 | NUR ---
RN NOTE PT HD CONCLUDED, PT TOLERATED WELL. 1.3 L REMOVED. VITALS: BP 135/76, HR 98, RR 36, SPO2 92%. WILL CONT TO MONITOR Addendum: 03/07/21 at 1903 by LORRIE LEON RN TEMPORARY O2 DESAT TO 78%, ONCE HD FINISHED SPO2 UP ABOVE 95%
[2021-03-07] MEDS: TAMSULOSIN 0.4 MG CAP.SR.24H PO SCH (17:59)
--- NOTE | 2021-03-07 19:00 | NUR ---
MEASURER PER REPORT PT WAS DIALYZED DURING DAY SHIFT WITH 1300 REMOVAL
--- NOTE | 2021-03-07 19:00 | NUR ---
PLANT ECOLOGIST CLOSING NOTE NO CHANGES TO PT DURING SHIFT, PT INSTABLE CONDITION, PT ON NRB 15 LPM, NO SIGNS OF RESP DISTRESS OR SOB, SPO2 99%, BREATHING EVEN AND UNLABORED- MAINTAIN STRICT ASPIRATION PRECAUTIONS, HOB ELEVATED, CRUSH MEDS WITH APPLESAUCE NAD ICE CHIPS OK. PT HD TODAY 1.3L REMOVED, TOLERATED WELL. ALL PT SAFETY PRECAUTIONS IN PLACE, WILL ENDORSE LISET TO ONCOMING RN
--- NOTE | 2021-03-07 19:15 | NUR ---
ELECTRICAL INSTALLATION INSPECTOR RCD PT W/DX CHF. ON NRB 15L. A/O x2. BSWR IN PLACE PT PULLS ON MEDICAL EQUIPMENT. INCONTINENT OF URINE W/PAD IN PLACE. SKIN INTACT. DILIP MIDLINE HL.
--- NOTE | 2021-03-07 21:21 | NUR ---
DISTRIBUTION OPERATIONS MANAGER PT ATTEMPTING TO GET OUT OF BED DESPITE BSWR IN PLACE. PT ASKING FOR SCOTCH AND A NICE HOTEL TO GO TO. REORIENTED PT AND EDUCATED TO STAY IN BED. RENDERED BRINA CARE.
[2021-03-07] MEDS: TRAZODONE 50 MG TABLET PO SCH (22:08)
--- NOTE | 2021-03-07 23:50 | NUR ---
RT NASOTRACHEAL SUCTION PERFORMED WITH RN AT BEDSIDE, MODERATE WHITE THICK SECRETIONS WITH BLOOD TINGE NOTED. IMPROVED BS AND SPO2 %
[2021-03-08] VITALS (59 sets, daily range): BP systolic 100–151; BP diastolic 37–98
--- NOTE | 2021-03-08 02:12 | NUR ---
CROWN CERAMIST OXYGEN TITRATED FROM NRB TO SIMPLE MASK PT TOLERATED FOR ABOUT TWO HOURS THEN NOTED TO BE DESATURATING; PLACED BACK ON NRB 15L.
--- NOTE | 2021-03-08 04:15 | NUR ---
RT PT RECVD ON 12 LPM NRB, PT AWAKE AND VERBAL. CHANGED PT TO 10 LPM SIMPLE MASK AFTER NT SUCTION, PT TOLERATED FOR 2 HRS THEN DESATURATED. FIO2 INCREASED TO 15 LPM. SPO2 INCREASED TO 97-99%. NO SOB OR RESPIRATORY DISTRESS NOTED THROUGHOUT SHIFT.
--- NOTE | 2021-03-08 06:00 | NUR ---
PLANT ETIOLOGIST HD NURSE AT BEDSIDE.
--- NOTE | 2021-03-08 07:05 | NUR ---
RN NOTES RECEIVED PT ON BED, A/Ox1, FOLLOWS SIMPLE COMMAND, RECEIVING HD AT THIS TIME, ON NON REBREATHER MASK AT 15 L , O2 SAT WNL, ON TELE SR HR IN 100'S, RIGHT UPPER ARM MIDLINE SITE CLEAN ,DRY AND INTACT, SR UP x3, CALL LIGHT WITHIN EASY REACH, BED LOCKED AND IN LOWEST POSITION, CONTINUE TO MONITOR .
[2021-03-08] MEDS: ACETYLCYSTEINE 10% SOLN 400 MG/4 ML VIAL NEB SCH ×3 (07:49→23:27)
[2021-03-08] MEDS: FAMOTIDINE (20 MG) 20 MG TABLET PO SCH (08:32)
[2021-03-08 09:08] LABS: CALCIUM, SERUM 8.5 mg/dL (8.5-10.1); CARBON DIOXIDE 32 mmol/L (21-32); CHLORIDE 105 mmol/L (98-107); CREATININE 2.7 mg/dL (0.6-1.3); GLUCOSE 99 mg/dL (74-106); POTASSIUM 3.8 mmol/L (3.5-5.1); SODIUM SERUM 146 mmol/L (136-145); UREA NITROGEN, BLOOD 31 mg/dL (7-18)
[2021-03-08] MEDS: ALLOPURINOL 100 MG TABLET PO SCH (09:29)
[2021-03-08] MEDS: Z GUARD REMEDY 2 OZ OINT TP SCH (09:29)
[2021-03-08] MEDS: VIT B CMPLX 3/FA/VIT C/BIOTIN 1 TAB TABLET PO SCH (09:29)
[2021-03-08] MEDS: BICALUTAMIDE 50 MG TABLET PO SCH (09:30)
[2021-03-08 10:11] LABS: BASOPHILS # (AUTO) 0.1 /CMM (0.0-0.2); BASOPHILS % (AUTO) 0.6 % (0.0-2.0); EOSINOPHILS % (AUTO) 0.7 % (0.0-6.0); LYMPHOCYTES # (AUTO) 0.8 /CMM (0.8-4.8); LYMPHOCYTES % (AUTO) 5.8 % (20.0-44.0); MEAN CORPUSCULAR HGB CONC 33 g/dl (31.0-36.0); MEAN CORPUSCULAR VOLUME 101 fL (80-96); MONOCYTES # (AUTO) 1.2 /CMM (0.1-1.30); MONOCYTES % (AUTO) 8.6 % (2.0-12.0); NEUTROPHILS # (AUTO) 11.4 /CMM (1.8-8.9); NEUTROPHILS % (AUTO) 84.3 % (43.0-81.0); WHITE BLOOD COUNT (AUTO) 13.5 K/uL (4.3-11.0)
[2021-03-08 10:19] LABS: HEMATOCRIT 20 % (39-51); HEMOGLOBIN 6.5 g/dL (13.5-17.5); RED BLOOD CELL COUNT(AUTO) 1.98 MIL/uL (4.5-6.0)
[2021-03-08 10:20] LABS: PLATELET COUNT (AUTO) 44 /CMM (150-450)
[2021-03-08 10:21] LABS: ABG BASE EXCESS 4.2 mmol/L; ABG OXYGEN SATURATION 98.7 % (92.0-98.5); ABG PCO2 43.8 mmHg (35.0-45.0); ABG PH 7.436 (7.350-7.450); ABG PO2 153.4 mmHg (75.0-100.0); COHb 1.9 % (0.5-1.5); MetHb 0.1 % (0.0-1.5); O2Hb 96.7 % (94.0-97.0); SITE, ABG Right Femoral; VENT MODE, BG NRB
[2021-03-08 10:43] LABS: BAND % (MANUAL) 3 % (0.0-5.0); LYMPHOCYTES % (MANUAL) 7 % (16-48); MONOCYTES % (MANUAL) 6 % (0-11.0); NEUTROPHILS % (MANUAL) 84 (42-76)
--- NOTE | 2021-03-08 11:00 | NUR ---
RN NOTES [facility] [employer] RESEARCHER NOTIFED REGARDING H/H 6.5 AND PLT=44 , ORDER RECEIVED TO TRANSFUSED ONE UNIT OF PRBC. CONTINUE TO MONITOR .
[2021-03-08] MEDS: TAMSULOSIN 0.4 MG CAP.SR.24H PO SCH (17:14)
--- NOTE | 2021-03-08 18:00 | NUR ---
RN NOTES PT REMANINS ON NONREBREATHER MASK , UNABLE TO TOLERATED SIMPLE MASK, O2 SAT DROPS TO LOW 80'S ON SIMPLE MASK, ENCOURAGED DEEP AND SLOW BREATHING , PT RECEIVED ON UNIT OF PRBC ON THIS SHIFT, NO COMPLICATION NOTED. SR UP X3, CALL LIGHT WITHIN EASY REACH, BED LOCKED AND IN LOWEST POSITION, WILL ENDORSE TO BOAT BUILDER NURSE FOR CONTINUITY OF CARE .
--- NOTE | 2021-03-08 19:15 | NUR ---
PT ON BED AWAKE A/O X2 CONFUSED ON O2 15L VIA NON REBREATHER MASK SPO2 98% BREATHING EVEN AND UNLABORED, HAVE BILATERAL WRIST RESTRAINS DUE TO PT IS ALWAYS REMOVING HIS MASK AND HE DESATURATE, REORIENTATION AND REMINDERS TO PT DONE WITH NO SUCCESS BED ON PT HAVE RIJ HD CATHETER DRESSING CLEAN AND DRY, HE ALSO HAVE DILIP MIDLINE PATENT AND FLUSHED BED ON LOWEST POSITION AND LOCKED SIDE RAILS UP X 2 CALL LIGHT WITHIN REACH WILL CONT TO MONITOR
[2021-03-08] MEDS: TRAZODONE 50 MG TABLET PO SCH (21:04)
[2021-03-09] VITALS (24 sets, daily range): BP systolic 113–141; BP diastolic 51–85
--- NOTE | 2021-03-09 05:08 | NUR ---
PT MAINTAINING SPO2 96-98% WITH NON REBREATHER MAS 15L RT TITRATE AND SHIFT HIM TO SIMPLE MASK 12L CURRENT SPO2 93-95% WILL CONT TO MONITOR THE PT
[2021-03-09 05:16] LABS: BASOPHILS % (AUTO) 0.4 % (0.0-2.0); EOSINOPHILS % (AUTO) 1.2 % (0.0-6.0); LYMPHOCYTES # (AUTO) 2.8 /CMM (0.8-4.8); LYMPHOCYTES % (AUTO) 28.8 % (20.0-44.0); MEAN CORPUSCULAR HGB CONC 33 g/dl (31.0-36.0); MEAN CORPUSCULAR VOLUME 100 fL (80-96); MONOCYTES # (AUTO) 0.8 /CMM (0.1-1.30); NEUTROPHILS % (AUTO) 61.6 % (43.0-81.0); PLATELET COUNT (AUTO) 53 /CMM (150-450); WHITE BLOOD COUNT (AUTO) 9.8 K/uL (4.3-11.0)
[2021-03-09 05:21] LABS: HEMATOCRIT 20 % (39-51); HEMOGLOBIN 6.7 g/dL (13.5-17.5)
[2021-03-09 05:31] LABS: ALANINE AMINOTRANSFERASE 28 U/L (12-78); ALBUMIN 3.4 g/dL (3.4-5.0); ALKALINE PHOSPHATASE 77 U/L (46-116); ASPARTATE AMINOTRANSFERASE 55 U/L (15-37); CALCIUM, SERUM 8.6 mg/dL (8.5-10.1); CARBON DIOXIDE 30 mmol/L (21-32); CHLORIDE 107 mmol/L (98-107); CREATININE 4.8 mg/dL (0.6-1.3); GLUCOSE 95 mg/dL (74-106); MAGNESIUM 2.3 mg/dL (1.8-2.4); PHOSPHORUS 4.2 mg/dL (2.5-4.9); SODIUM SERUM 147 mmol/L (136-145); TOTAL PROTEIN, SERUM 6.8 g/dL (6.4-8.2); UREA NITROGEN, BLOOD 48 mg/dL (7-18)
[2021-03-09 05:39] LABS: EOSINOPHILS % (MANUAL) 1 % (0-4); LYMPHOCYTES % (MANUAL) 26 % (16-48); MONOCYTES % (MANUAL) 8 % (0-11.0); NEUTROPHILS % (MANUAL) 65 (42-76)
--- NOTE | 2021-03-09 06:07 | NUR ---
PT ON BED SLEEPING EASY TO WAKE UP NO SIGN AND SYMPTOMS OF DISTRESS, BREATHING EVEN AND UNLABORED, O2 12L VIA SIMPLE MASK TOLERATING WELL WITH SPO2 98% WILL CONT TO MONITOR
--- NOTE | 2021-03-09 07:12 | NUR ---
ROASTER SUPERVISOR NOTES RECEIVED PT ON BED AWAKE STILL CONFUSED A/0 X1, ON O2 VIA SIMPLE MASK 12L SPO2 98% BREATHING EVEN AND UNLABORED, TELE MONITOR READS SINUS TACHY 100'S, IV ACCESS ON DILIP MIDLINE, INTACT AND PATENT, NOTED WITH HGB OF 6.7, INTERVENTION NURSE MD AWARE AWAITING FOR REPLY, WILL F/U WITH DAYSHIFT HOSPITALIST, SAFETY MEASURES IN PLACE, BED ON LOWEST POSITION AND LOCKED SIDE RAILS UP X 2 CALL LIGHT WITHIN REACH. WILL CONTINUE TO MONITOR.
--- NOTE | 2021-03-09 07:15 | NUR ---
PT ON BED AWAKE STILL CONFUSED ON O2 VIA SIMPLE MASK 12L SPO2 98% BREATHING EVEN AND UNLABORED TELE MONITOR READS SINUS TACHY 100'S BED ON LOWEST POSITION AND LOCKED SIDE RAILS UP X 2 CALL LIGHT WITHIN REACH WILL ENDORSED TO AM SHIFT NURSE
[2021-03-09] MEDS: ACETYLCYSTEINE 10% SOLN 400 MG/4 ML VIAL NEB SCH ×3 (08:04→23:11)
[2021-03-09] MEDS: FAMOTIDINE (20 MG) 20 MG TABLET PO SCH (08:36)
[2021-03-09] MEDS: BICALUTAMIDE 50 MG TABLET PO SCH (08:37)
[2021-03-09] MEDS: ALLOPURINOL 100 MG TABLET PO SCH (08:37)
[2021-03-09] MEDS: Z GUARD REMEDY 2 OZ OINT TP SCH (08:38)
[2021-03-09] MEDS: VIT B CMPLX 3/FA/VIT C/BIOTIN 1 TAB TABLET PO SCH (08:38)
--- NOTE | 2021-03-09 13:20 | NUR ---
YARDING ENGINEER NOTES DIALYSIS NURSE ON UNIT, WILL DIALYZE PATIENT AND WILL GIVE 1 UNIT PRBC VIA DIALYSIS, VSS, NO SIGNS OF DISTRESS NOTED AT THIS TIME.
--- NOTE | 2021-03-09 15:30 | NUR ---
COMPUTER REPAIR ENGINEER NOTES S/P HD AND BLOOD TRANSFUSION, NO SIGNS OF DISTRESS NOTED AT THIS TIME, 3L REMOVED FROM HD, VSS, WILL CONTINUE TO MONITOR.
[2021-03-09] MEDS: TAMSULOSIN 0.4 MG CAP.SR.24H PO SCH (17:25)
--- NOTE | 2021-03-09 18:34 | NUR ---
SPARE HAND NOTES PATIENT ON BED AWAKE STILL CONFUSED A/0 X1, ON O2 VIA SIMPLE MASK 12L SPO2 98% BREATHING EVEN AND UNLABORED, TELE MONITOR READS SINUS TACHY 100'S, IV ACCESS ON DILIP MIDLINE, INTACT AND PATENT, S/P HD AND BLOOD TRANSFUSION, TOLERATED WELL, NO SIGNS OF DISTRESS NOTED, SAFETY MEASURES IN PLACE, BED ON LOWEST POSITION AND LOCKED SIDE RAILS UP X 2 CALL LIGHT WITHIN REACH. WILL ENDORSE TO FILM LIBRARIAN NURSE FOR LISET.
[2021-03-09] MEDS: TRAZODONE 50 MG TABLET PO SCH (21:03)
[2021-03-10] VITALS (23 sets, daily range): BP systolic 107–150; BP diastolic 51–111
--- NOTE | 2021-03-10 07:10 | NUR ---
PAINTER DECORATOR BEDSIDE REPORT TAKEN FROM [facility] NURSE MARCUS DE LA O. PT AWAKE, ALERT AND ORIENTED X2. PT CONFUSED AND TALKATIVE, SLIGHTLY RESTLESS. PT HAS WRIST RESTRAINTS. PT ON NONREBREATHER 10 L TOLERATING WELL. LUNG SOUNDS COURSE. BOWEL SOUNDS PRESENT. PT INCONTINENT OF URINE AND STOOL. PT MOVES BUE 5/5 AND BLE 4/5. SKIN CHECK DONE, EDEMA NOTED, NO WOUNDS. BUE AND BLE PULSES PRESENT. VITALS STABLE. NO SIGNS OF ACUTE DISTRESS AT THIS TIME. SAFETY MEASURES IN PLACE. WILL CONTINUE TO MONITOR.
[2021-03-10] MEDS: ACETYLCYSTEINE 10% SOLN 400 MG/4 ML VIAL NEB SCH ×3 (07:42→23:21)
[2021-03-10] MEDS: VIT B CMPLX 3/FA/VIT C/BIOTIN 1 TAB TABLET PO SCH (10:19)
[2021-03-10] MEDS: ALLOPURINOL 100 MG TABLET PO SCH (10:19)
[2021-03-10] MEDS: BICALUTAMIDE 50 MG TABLET PO SCH (10:20)
[2021-03-10] MEDS: FAMOTIDINE (20 MG) 20 MG TABLET PO SCH (10:20)
[2021-03-10] MEDS: Z GUARD REMEDY 2 OZ OINT TP SCH (10:21)
--- NOTE | 2021-03-10 10:46 | NUR ---
VAMP PRESSER PT BATHED AND CLEANED. DIAPER REMOVED,SKIN LEFT OPEN TO AIR. SKIN CHECK DONE, NO WOUNDS NOTED. LINEN CHANGE DONE, PT TOLERATED WELL. VITALS STABLE. ARJUN WRIST RESTRAINTS REMOVED. PT ON 4L N/C, PT TOLERATING WELL. WILL CONTINUE TO MONITOR.
--- NOTE | 2021-03-10 11:00 | NUR ---
PROCESSING LEAD ARJUN WRIST RESTRAINTS PLACED BACK ON PT BECAUSE PT WAS REMOVING OXYGEN AND SPO2 MONITOR ALONG WITH OTHER LINES.
[2021-03-10 12:07] LABS: BASOPHILS # (AUTO) 0.1 /CMM (0.0-0.2); BASOPHILS % (AUTO) 0.8 % (0.0-2.0); EOSINOPHILS % (AUTO) 1.7 % (0.0-6.0); HEMATOCRIT 27 % (39-51); HEMOGLOBIN 8.9 g/dL (13.5-17.5); LYMPHOCYTES # (AUTO) 1.3 /CMM (0.8-4.8); LYMPHOCYTES % (AUTO) 17.3 % (20.0-44.0); MEAN CORPUSCULAR HGB CONC 33 g/dl (31.0-36.0); MEAN CORPUSCULAR VOLUME 98 fL (80-96); MONOCYTES # (AUTO) 0.6 /CMM (0.1-1.30); MONOCYTES % (AUTO) 7.5 % (2.0-12.0); NEUTROPHILS # (AUTO) 5.5 /CMM (1.8-8.9); NEUTROPHILS % (AUTO) 72.7 % (43.0-81.0); PLATELET COUNT (AUTO) 58 /CMM (150-450); RED BLOOD CELL COUNT(AUTO) 2.73 MIL/uL (4.5-6.0); WHITE BLOOD COUNT (AUTO) 7.6 K/uL (4.3-11.0)
[2021-03-10 12:33] LABS: CALCIUM, SERUM 9.4 mg/dL (8.5-10.1); CARBON DIOXIDE 29 mmol/L (21-32); CHLORIDE 107 mmol/L (98-107); CREATININE 5.5 mg/dL (0.6-1.3); GLUCOSE 93 mg/dL (74-106); SODIUM SERUM 148 mmol/L (136-145); UREA NITROGEN, BLOOD 56 mg/dL (7-18)
--- NOTE | 2021-03-10 12:35 | NUR ---
CATTLE EXAMINER HD NURSE CAMILLE RN AT BEDSIDE STARTING HD. PT AWAKE, ALERT AND COOPERATIVE, VITALS STABLE. PT TOLERATING WELL. WILL CONTINUE TO MONITOR.
[2021-03-10 12:41] LABS: BAND % (MANUAL) 2 % (0.0-5.0); LYMPHOCYTES % (MANUAL) 21 % (16-48); MONOCYTES % (MANUAL) 12 % (0-11.0); NEUTROPHILS % (MANUAL) 65 (42-76)
[2021-03-10 12:53] LABS: ALANINE AMINOTRANSFERASE 34 U/L (12-78); ALBUMIN 3.8 g/dL (3.4-5.0); ALKALINE PHOSPHATASE 91 U/L (46-116); ASPARTATE AMINOTRANSFERASE 51 U/L (15-37); BILIRUBIN,TOTAL 3.7 mg/dL (0.2-1.0); MAGNESIUM 2.5 mg/dL (1.8-2.4); PHOSPHORUS 3.7 mg/dL (2.5-4.9); TOTAL PROTEIN, SERUM 7.6 g/dL (6.4-8.2)
[2021-03-10] MEDS: CHLORHEXIDINE GLUCONATE 15 ML UDC MM SCH ×2 (14:12→19:19)
--- NOTE | 2021-03-10 17:25 | NUR ---
GLOBAL MARKETING OPERATIONS MANAGER PT BATHED AND CLEANED. LINEN CHANGE DONE. SKIN CHECK DONE, NO WOUNDS NOTED. BARRIER CREAM APPLIED. PT TOLERATED WELL. WILL CONTINUE TO MONITOR.
[2021-03-10] MEDS: NYSTATIN (PYXIS) 500,000 UNIT/5 ML ORAL.SUSP PO SCH (19:20)
[2021-03-10] MEDS: TAMSULOSIN 0.4 MG CAP.SR.24H PO SCH (19:20)
--- NOTE | 2021-03-10 19:22 | NUR ---
ELECTRONIC COMMERCE SPECIALIST BEDSIDE REPORT GIVEN TO [facility] NURSE MARCUS DE LA O. PT ASLEEP, EASILY AROUSABLE. PT ON 4L N/C TOLERATING WELL. ALL LINES TRACED. VITALS STABLE. SAFETY MEASURES IN PLACE. NO SIGNS OF ACUTE DISTRESS AT THIS TIME. TRANSFER ENDORSED TO [facility] NURSE.
--- NOTE | 2021-03-10 21:00 | NUR ---
VICE PRESIDENT PAYER REPORT GIVEN TO ROBERT FOR LISET.
--- NOTE | 2021-03-10 21:13 | NUR ---
OVERHAULER HELPER ADMITTING NOTE PT TRANSPORTED VIA GURNEY TO UNIT AT THIS TIME. PT ADMITTED TO TELE. PT A/O X2, FORGETFUL AND CONFUSED. PT NOTED ON 4L O2 VIA NC, SATURATING AT 98%. EXTERNAL MONITOR READS JUNCTIONAL WITH PVC 91. NO SOB NOTED. NO S/S OF RESPIRATORY DISTRESS. SKIN IS INTACT. IV ACCESS IN DILIP MIDLINE NOTED, INTACT AND PATENT. NO S/O PAIN SUCH FACIAL GRIMACING NOTED. BILATERAL WRIST RESTRAINTS NOTED WITH PULSES PRESENT BILATERALLY, GOOD CIRCULATION, CAPILLARY REFILL <3 SECONDS. SAFETY MEASURES IN PLACE. BED IN LOWEST LOCKED POSITION, HOB ELEVATED, SIDE RAILS UP X2. CALL LIGHT AND TABLE WITHIN REACH. WILL CONTINUE TO MONITOR.
[2021-03-10] MEDS: TRAZODONE 50 MG TABLET PO SCH (22:41)
[2021-03-11] VITALS: BP_SYST 118; BP_SYST 129; BP_DIAS 67; BP_DIAS 80
[2021-03-11 04:00] VITALS: BP 116/60
--- NOTE | 2021-03-11 06:21 | NUR ---
RATER ASSOCIATE CLOSING NOTE PT IS AWAKE IN BED AT THIS TIME. A/O X2, FORGETFUL AND CONFUSED. PT NOTED ON 4L O2 VIA NC, TOLERATING WELL. EXTERNAL MONITOR READS JUNCTIONAL WITH PVC 91. NO SOB NOTED. NO S/S OF RESPIRATORY DISTRESS. NO S/O OF PAIN SUCH FACIAL GRIMACING NOTED. IV ACCESS IN DILIP MIDLINE NOTED, INTACT AND PATENT. BILATERAL WRIST RESTRAINTS NOTED WITH PULSES PRESENT BILATERALLY, GOOD CIRCULATION, CAPILLARY REFILL <3 SECONDS. SAFETY AND ASPIRATION PRECAUTIONS IN PLACE. BED IN LOWEST LOCKED POSITION, HOB ELEVATED, SIDE RAILS UP X2. CALL LIGHT AND TABLE WITHIN REACH. WILL CONTINUE TO MONITOR.
[2021-03-11 08:00] VITALS: BP_SYST 116; BP_DIAS 60; BP_DIAS 62
[2021-03-11] MEDS: ACETYLCYSTEINE 10% SOLN 400 MG/4 ML VIAL NEB SCH ×3 (09:30→23:54)
[2021-03-11] MEDS: CHLORHEXIDINE GLUCONATE 15 ML UDC MM SCH ×2 (09:56→16:40)
[2021-03-11] MEDS: Z GUARD REMEDY 2 OZ OINT TP SCH (09:56)
[2021-03-11] MEDS: ALLOPURINOL 100 MG TABLET PO SCH (10:03)
[2021-03-11] MEDS: NYSTATIN (PYXIS) 500,000 UNIT/5 ML ORAL.SUSP PO SCH ×3 (10:03→16:40)
[2021-03-11] MEDS: VIT B CMPLX 3/FA/VIT C/BIOTIN 1 TAB TABLET PO SCH (10:03)
[2021-03-11] MEDS: FAMOTIDINE (20 MG) 20 MG TABLET PO SCH (10:08)
[2021-03-11] MEDS: BICALUTAMIDE 50 MG TABLET PO SCH (11:42)
[2021-03-11 16:00] VITALS: BP 135/80
--- NOTE | 2021-03-11 16:24 | NUR ---
MSRN NOTES 1 HOUR INTO SCHEDULED DIALYSIS , PATIENT STARTED BECOMING AGRESSIVE, STRIKING OUT, REFUSING AND DEMANDING DIALYSIS TO BE THE STOPPED, MD NOTIFIED.
[2021-03-11] MEDS: TAMSULOSIN 0.4 MG CAP.SR.24H PO SCH (17:12)
--- NOTE | 2021-03-11 19:30 | NUR ---
MS RN NOTES PATIENT IN BED. PLEASANT MOOD AND COOPERATIVE. NO S/S OF DISTRESS, TOLERATING 2LPM OF OXYGEN VIA NC. NO C/O PAIN. BILATERAL SOFT WRIST RESTRAINTS IN PLACE. SAFETY IN PLACE: BED IN LOWEST, LOCKED POSITION; CALL LIGHT WITHIN REACH. WILL CONTINUE TO MONITOR.
[2021-03-11 20:00] VITALS: BP 108/47
[2021-03-11] MEDS: TRAZODONE 50 MG TABLET PO SCH (22:39)
--- NOTE | 2021-03-12 06:30 | NUR ---
MS RN NOTES PATIENT DECLINED AM LABS. CHARGE NURSE, ARTUR KNOW AND TALKED TO THE PATIENT. PATIENT STILL REFUSED AND PER PATIENT "MY BODY IS NOT MY SONS BODY".
[2021-03-12] MEDS: FAMOTIDINE (20 MG) 20 MG TABLET PO SCH (07:30)
[2021-03-12] MEDS: ACETYLCYSTEINE 10% SOLN 400 MG/4 ML VIAL NEB SCH ×3 (07:35→22:46)
--- NOTE | 2021-03-12 07:35 | NUR ---
MS RN CLOSING NOTES PATIENT IN BED, CONFUSED/ FORGETFUL, CALM. NO S/S OF DISTRESS. NO C/O PAIN MELANIE. SAFETY KEPT IN PLACE THE WHOLE SHIFT: BED IN LOWEST, LOCKED POSITION; CALL LIGHT WITHIN REACH. NEW PICTURE TAKEN, Rao ARM SCABS @0730. BILATERAL SOFT WRIST STILL IN PLACE. CONSENTS SIGNED BY PATIENT'S SON FLAGGED IN THE CHART, CHECKLIST DONE. WILL ENDORSE CARE TO MORNING SHIFT NURSE.
[2021-03-12 08:00] VITALS: BP 116/69
[2021-03-12] MEDS: NYSTATIN (PYXIS) 500,000 UNIT/5 ML ORAL.SUSP PO SCH ×3 (08:26→16:29)
[2021-03-12] MEDS: VIT B CMPLX 3/FA/VIT C/BIOTIN 1 TAB TABLET PO SCH (08:26)
[2021-03-12] MEDS: BICALUTAMIDE 50 MG TABLET PO SCH (08:26)
[2021-03-12] MEDS: ALLOPURINOL 100 MG TABLET PO SCH (08:26)
[2021-03-12] MEDS: Z GUARD REMEDY 2 OZ OINT TP SCH (08:27)
[2021-03-12] MEDS ORDERED: HEPARIN SODIUM, PORCINE 1,000 UNIT/ML VIAL ONE (09:11)
[2021-03-12] MEDS ORDERED: IOHEXOL 0 ML IV ONE (09:11)
[2021-03-12] MEDS ORDERED: LIDOCAINE HCL/MPF 1% 30 ML VIAL IJ ONE (09:11)
[2021-03-12] MEDS ORDERED: THROMBIN (BOVINE) 5,000 UNITS VIAL TP ONE (09:11)
[2021-03-12] MEDS: CHLORHEXIDINE GLUCONATE 15 ML UDC MM SCH ×2 (09:40→16:29)
[2021-03-12 16:00] VITALS: BP 104/66
[2021-03-12] MEDS ORDERED: NEPRO VAN 237 ML CAN PO PRN (17:00)
[2021-03-12 17:13] LABS: BASOPHILS # (AUTO) 0.1 /CMM (0.0-0.2); BASOPHILS % (AUTO) 0.9 % (0.0-2.0); EOSINOPHILS % (AUTO) 1.1 % (0.0-6.0); HEMATOCRIT 23 % (39-51); HEMOGLOBIN 7.7 g/dL (13.5-17.5); LYMPHOCYTES # (AUTO) 1.5 /CMM (0.8-4.8); LYMPHOCYTES % (AUTO) 24.7 % (20.0-44.0); MEAN CORPUSCULAR HGB CONC 34 g/dl (31.0-36.0); MEAN CORPUSCULAR VOLUME 99 fL (80-96); MONOCYTES # (AUTO) 0.6 /CMM (0.1-1.30); MONOCYTES % (AUTO) 9.1 % (2.0-12.0); NEUTROPHILS % (AUTO) 64.2 % (43.0-81.0); PLATELET COUNT (AUTO) 60 /CMM (150-450); WHITE BLOOD COUNT (AUTO) 6.2 K/uL (4.3-11.0)
[2021-03-12] MEDS: TAMSULOSIN 0.4 MG CAP.SR.24H PO SCH (17:15)
[2021-03-12 17:25] LABS: CALCIUM, SERUM 8.6 mg/dL (8.5-10.1); CARBON DIOXIDE 30 mmol/L (21-32); CHLORIDE 99 mmol/L (98-107); GLUCOSE 110 mg/dL (74-106); MAGNESIUM 2.1 mg/dL (1.8-2.4); PHOSPHORUS 4.5 mg/dL (2.5-4.9); POTASSIUM 3.7 mmol/L (3.5-5.1); SODIUM SERUM 139 mmol/L (136-145); UREA NITROGEN, BLOOD 70 mg/dL (7-18)
[2021-03-12 17:35] LABS: BAND % (MANUAL) 1 % (0.0-5.0); NEUTROPHILS % (MANUAL) 63 (42-76)
[2021-03-12 17:36] LABS: LYMPHOCYTES % (MANUAL) 28 % (16-48); MONOCYTES % (MANUAL) 8 % (0-11.0)
--- NOTE | 2021-03-12 18:12 | NUR ---
END OF SHIFT SUMMARY PATIENT RESTING IN BED. A/O X2-3. ON ROOM AIR, TOLERATING WELL. NO SOB NOTED. NO S/S OF RESPIRATORY DISTRESS. DENIES ANY PAIN OR DISCOMFORT AT THIS TIME. R IJ JANELLE CATH, DRESSING D/C/I. IV ACCESS ON DILIP MIDLINE, INTACT AND PATENT. PATIENT REFUSED TO UNDERGO SURGERY AND HEMODIALYSIS. MD's ARE AWARE. BOTH WRIST ON SOFT RESTRAINT, ASSESSED PER PROTOCOL. ROUTINE MEDS WERE GIVEN ORDERED. ALL NEEDS HAVE BEEN MET AND ATTENDED. SAFETY MEASURES MAINTAINED. BED IN LOWEST POSITION, BRAKES LOCKED. SIDE RAILS UP X2. CALL LIGHT WITHIN REACH. WILL ENDORSE CONTINUITY OF CARE TO ONCOMING SHIFT.
--- NOTE | 2021-03-12 19:00 | NUR ---
MS RN: CONTINUITY OF CARE Patient in bed, A/O x2 Forgetful. DILIP midline present, Right IJ cath dressing changed. Bilateral soft wrist restraints released, no skin injury noted. Patient appears calm and cooperative, will reapplied restraints if needed. Instruction provided to use call light for assistance, patient verbalized understanding. Fall precaution maintained. Addendum: 03/13/21 at 0034 by EDMUNDO MÉNDEZ RN CLARIFICATION NOTES ABOVE: JAYLYN Grubbs Error documentation placed under JAYLYN Romero
[2021-03-12 20:00] VITALS: BP 121/65
--- NOTE | 2021-03-12 21:14 | NUR ---
RN: RESTRAINTS Patient still calm and cooperative in the last 2 hours, will cont to reassess for the need to reapply bilateral wrist restraints. Fall precaution maintained. Addendum: 03/13/21 at 0034 by EDMUNDO MÉNDEZ RN CLARIFICATION NOTES ABOVE: JAYLYN Grubbs Error documentation placed under JAYLYN Romero
--- NOTE | 2021-03-12 21:43 | NUR ---
CLARIFICATION NOTES ABOVE: JAYLYN Grubbs Error documentation placed under JAYLYN Romero Addendum: 03/13/21 at 0035 by EDMUNDO MÉNDEZ RN DISREGARD NOTES ABOVE
[2021-03-12] MEDS: TRAZODONE 50 MG TABLET PO SCH (21:49)
--- NOTE | 2021-03-12 23:07 | NUR ---
MS RN: RESTRAINTS Patient still calm and cooperative in the last 4 hours, will cont to reassess for the need to reapply bilateral wrist restraints. Fall precaution maintained.
--- NOTE | 2021-03-13 01:00 | NUR ---
MS RN: RESTRAINTS Patient still calm and cooperative in the last 6 hours, will cont to reassess for the need to reapply bilateral wrist restraints. Fall precaution maintained.
--- NOTE | 2021-03-13 01:47 | NUR ---
MS RN: RESTRAINTS Calm and cooperative, no episode of agitation. Not pulling IV line. Bilateral soft wrist restraint discontinued.
--- NOTE | 2021-03-13 06:14 | NUR ---
END OF SHIFT REPORT Skin/Facial pale, no c/o pain. On room air, tolerating well. Neb therapy q 8hours per RT. Patient remains cooperative and calm, A/O x2 forgetful. Bilaterals soft wrist restraints not needed and was discontinued. Will endorse to oncoming RN.
[2021-03-13 06:53] LABS: BASOPHILS % (AUTO) 0.6 % (0.0-2.0); EOSINOPHILS % (AUTO) 1.2 % (0.0-6.0); HEMATOCRIT 21 % (39-51); LYMPHOCYTES # (AUTO) 1.6 /CMM (0.8-4.8); LYMPHOCYTES % (AUTO) 25.6 % (20.0-44.0); MEAN CORPUSCULAR HGB CONC 34 g/dl (31.0-36.0); MEAN CORPUSCULAR VOLUME 100 fL (80-96); MONOCYTES # (AUTO) 0.6 /CMM (0.1-1.30); MONOCYTES % (AUTO) 9.7 % (2.0-12.0); NEUTROPHILS # (AUTO) 3.9 /CMM (1.8-8.9); NEUTROPHILS % (AUTO) 62.9 % (43.0-81.0); PLATELET COUNT (AUTO) 66 /CMM (150-450); RED BLOOD CELL COUNT(AUTO) 2.08 MIL/uL (4.5-6.0); WHITE BLOOD COUNT (AUTO) 6.2 K/uL (4.3-11.0)
[2021-03-13 07:39] LABS: CALCIUM, SERUM 8.5 mg/dL (8.5-10.1); CARBON DIOXIDE 26 mmol/L (21-32); CHLORIDE 98 mmol/L (98-107); GLUCOSE 102 mg/dL (74-106); MAGNESIUM 2.1 mg/dL (1.8-2.4); PHOSPHORUS 4.5 mg/dL (2.5-4.9); POTASSIUM 3.3 mmol/L (3.5-5.1); SODIUM SERUM 137 mmol/L (136-145); UREA NITROGEN, BLOOD 79 mg/dL (7-18)
[2021-03-13 07:41] LABS: CREATININE 7.9 mg/dL (0.6-1.3)
--- NOTE | 2021-03-13 07:42 | NUR ---
RN NOTE: CRITICAL LAB VALUE 'MAY' FROM LAB CALLED FOR A CRITICAL VALUE, Hgb 7.0 INFORMED ALAN APPIAH SHEET METAL ERECTOR AT 0755. NO NEW ORDERS.
[2021-03-13 08:00] VITALS: BP 120/63
[2021-03-13] MEDS: ACETYLCYSTEINE 10% SOLN 400 MG/4 ML VIAL NEB SCH ×3 (08:00→23:44)
--- NOTE | 2021-03-13 08:03 | NUR ---
MS JAYLYN OPENING NOTE RECEIVED PATIENT IN BED. A/O X2-3. ON ROOM AIR, TOLERATING WELL. NO SOB NOTED. NO S/S OF RESPIRATORY DISTRESS. DENIES ANY PAIN OR DISCOMFORT AT THIS TIME. Shanna CHOI, DRESSING D/C/I. IV ACCESS ON DILIP MIDLINE, INTACT. SAFETY MEASURES MAINTAINED. BED IN LOWEST POSITION, BRAKES LOCKED. SIDE RAILS UP X2. CALL LIGHT WITHIN REACH. WILL CONTINUE PLAN OF CARE. Addendum: 03/13/21 at 0807 by ELENITA KAUR RN RECEIVED PT AT 0723 Addendum: 03/13/21 at 1143 by ELENITA KAUR RN PT IS ON 2L NC
[2021-03-13] MEDS: NYSTATIN (PYXIS) 500,000 UNIT/5 ML ORAL.SUSP PO SCH ×3 (09:01→16:36)
[2021-03-13] MEDS: Z GUARD REMEDY 2 OZ OINT TP SCH (09:02)
[2021-03-13] MEDS: VIT B CMPLX 3/FA/VIT C/BIOTIN 1 TAB TABLET PO SCH (09:02)
[2021-03-13] MEDS: CHLORHEXIDINE GLUCONATE 15 ML UDC MM SCH ×2 (09:02→16:36)
[2021-03-13] MEDS: ALLOPURINOL 100 MG TABLET PO SCH (09:02)
[2021-03-13] MEDS: BICALUTAMIDE 50 MG TABLET PO SCH (09:05)
[2021-03-13] MEDS: FAMOTIDINE (20 MG) 20 MG TABLET PO SCH (09:06)
--- NOTE | 2021-03-13 10:35 | NUR ---
MS RN NOTE PATIENT REFUSED HEMODIALYSIS. NINFA LOUIS NP, WAS MADE TILLMAN.
[2021-03-13 10:37] LABS: BAND % (MANUAL) 1 % (0.0-5.0); LYMPHOCYTES % (MANUAL) 30 % (16-48); MONOCYTES % (MANUAL) 11 % (0-11.0); NEUTROPHILS % (MANUAL) 58 (42-76)
[2021-03-13 16:00] VITALS: BP 119/59
[2021-03-13] MEDS ORDERED: POTASSIUM CHLORIDE 20 MEQ TAB.PRT.SR PO ONE (16:00)
[2021-03-13] MEDS: TAMSULOSIN 0.4 MG CAP.SR.24H PO SCH (17:12)
--- NOTE | 2021-03-13 19:30 | NUR ---
MS RN NOTES RECEIVED LYING COMFORTABLY ON BED, A/O X2-3,BREATHING REGULAR,NOT IN ANY FORM OF DISTRESS,O2 USE ON AND OFF,REFUSED THIS TIME.SALINE LOCK RIGHT UPPER ARM MIDLINE INTACT AND PATENT,WITH RIGHT IJ JANELLE CATH FOR HD ACCESS.FALL RISK,BED ALARM TRIGGERED,BED ON LOWEST POSITION AND LOCKED.CALL LIGHT IN REACH,NEEDS ANTICIPATED.
[2021-03-13 20:00] VITALS: BP 135/63
[2021-03-13] MEDS: TRAZODONE 50 MG TABLET PO SCH (21:11)
--- NOTE | 2021-03-14 06:45 | NUR ---
MS RN NOTES SLEPT WELL AT NIGHT,NO FALL,NO INJURY,COMPLIANT WITH MEDS.IN NO ACUTE DISTRESS.
[2021-03-14] MEDS: ACETYLCYSTEINE 10% SOLN 400 MG/4 ML VIAL NEB SCH ×3 (07:35→23:59)
--- NOTE | 2021-03-14 08:00 | NUR ---
Pt A&Ox2. VS WNL. Denies pain or discomfort. Independent with bed mobility. Needs assistance if transferring to chair. This morning pt states he will be compliant with dialysis. Very pleasant and cooperative. Bed control within reach.
[2021-03-14 08:04] VITALS: BP 132/76
[2021-03-14] MEDS: VIT B CMPLX 3/FA/VIT C/BIOTIN 1 TAB TABLET PO SCH (09:11)
[2021-03-14] MEDS: ALLOPURINOL 100 MG TABLET PO SCH (09:11)
[2021-03-14] MEDS: CHLORHEXIDINE GLUCONATE 15 ML UDC MM SCH ×2 (09:11→17:07)
[2021-03-14] MEDS: NYSTATIN (PYXIS) 500,000 UNIT/5 ML ORAL.SUSP PO SCH ×3 (09:11→17:07)
[2021-03-14] MEDS: FAMOTIDINE (20 MG) 20 MG TABLET PO SCH (09:11)
[2021-03-14] MEDS: BICALUTAMIDE 50 MG TABLET PO SCH (09:11)
[2021-03-14] MEDS: Z GUARD REMEDY 2 OZ OINT TP SCH (11:24)
[2021-03-14 11:40] LABS: BASOPHILS % (AUTO) 0.8 % (0.0-2.0); EOSINOPHILS % (AUTO) 0.8 % (0.0-6.0); HEMATOCRIT 22 % (39-51); HEMOGLOBIN 7.3 g/dL (13.5-17.5); LYMPHOCYTES # (AUTO) 1.1 /CMM (0.8-4.8); LYMPHOCYTES % (AUTO) 19.2 % (20.0-44.0); MEAN CORPUSCULAR HGB CONC 34 g/dl (31.0-36.0); MEAN CORPUSCULAR VOLUME 100 fL (80-96); MONOCYTES # (AUTO) 0.4 /CMM (0.1-1.30); MONOCYTES % (AUTO) 7.3 % (2.0-12.0); NEUTROPHILS # (AUTO) 4.2 /CMM (1.8-8.9); NEUTROPHILS % (AUTO) 71.9 % (43.0-81.0); PLATELET COUNT (AUTO) 68 /CMM (150-450); RED BLOOD CELL COUNT(AUTO) 2.16 MIL/uL (4.5-6.0); WHITE BLOOD COUNT (AUTO) 5.8 K/uL (4.3-11.0)
--- NOTE | 2021-03-14 13:00 | NUR ---
MS RN NOTES Dialysis consent signed. Pt tolerated procedure well. 1L taken off per dialysis nurse. VS WNL.
[2021-03-14 16:05] VITALS: BP 121/70
[2021-03-14] MEDS: TAMSULOSIN 0.4 MG CAP.SR.24H PO SCH (17:07)
--- NOTE | 2021-03-14 18:21 | NUR ---
RN CLOSING NOTES Pt alert and oriented x2. tolerated dialysis well. Had 1 large BM. Kept safe -bed alarm on. call light within reach. No c/o pain or discomfort.
[2021-03-14 20:00] VITALS: BP 131/74
[2021-03-14] MEDS: TRAZODONE 50 MG TABLET PO SCH (21:17)
--- NOTE | 2021-03-14 21:17 | NUR ---
MS RN NOTES PATIENT REFUSED TRAZODONE 25 MG BY MOUTH AT 2116 ON 03/14/2021.
[2021-03-15] VITALS (7 sets, daily range): BP systolic 121–144; BP diastolic 51–80
[2021-03-15] MEDS: ACETYLCYSTEINE 10% SOLN 400 MG/4 ML VIAL NEB SCH ×2 (00:43→07:35)
--- NOTE | 2021-03-15 07:30 | NUR ---
RN OPENING NOTES PATIENT AWAKE, LYING IN HIS ROOM. PATIENT IS A/OX2-3, WITH EPISODES OF CONFUSION AND FORGETFULNESS. PATIENT IS ON ROOM AIR AND HAS NO S/S OF DISCOMFORT OR DISTRESS. PATIENT HAS NO IV ACCESS. GYMNASTICS INSTRUCTOR CHARGE NURSE WAS MADE AWARE. SAFETY MEASURES IMPLEMENTED. BED LOCKED. SIDE RAILS UP. CALL LIGHT WITHIN EASY REACH OF THE PATIENT. WILL CONTINUE CURRENT POC.
--- NOTE | 2021-03-15 07:59 | NUR ---
RN MS CLOSING NOTES PATIENT WAS SEEN AWAKE LYING IN HIS ROOM. PATIENT IS A/OX2-3, WITH EPISODES OF CONFUSION AND FORGETFULNESS. PATIENT IS ON ROOM AIR AND HAS NO RESPIRATORY DISTRESS. PATIENT HAS NO IV ACCESS. BUTADIENE COMPRESSOR OPERATOR CHARGE NURSE WAS MADE AWARE. SAFETY MEASURES IMPLEMENTED. BED LOCKED. SIDE RAILS UP. CALL LIGHT WITHIN EASY REACH OF THE PATIENT. ENDORSED CARE TO DAY SHIFT NURSE.
[2021-03-15 08:57] LABS: BASOPHILS % (AUTO) 0.9 % (0.0-2.0); EOSINOPHILS % (AUTO) 1.4 % (0.0-6.0); LYMPHOCYTES % (AUTO) 21.9 % (20.0-44.0); MEAN CORPUSCULAR HGB CONC 33 g/dl (31.0-36.0); MEAN CORPUSCULAR VOLUME 101 fL (80-96); MONOCYTES # (AUTO) 0.4 /CMM (0.1-1.30); MONOCYTES % (AUTO) 8.6 % (2.0-12.0); NEUTROPHILS # (AUTO) 3.1 /CMM (1.8-8.9); NEUTROPHILS % (AUTO) 67.2 % (43.0-81.0); PLATELET COUNT (AUTO) 77 /CMM (150-450); WHITE BLOOD COUNT (AUTO) 4.6 K/uL (4.3-11.0)
[2021-03-15] MEDS: BICALUTAMIDE 50 MG TABLET PO SCH (09:07)
[2021-03-15] MEDS: CHLORHEXIDINE GLUCONATE 15 ML UDC MM SCH ×2 (09:08→17:49)
[2021-03-15] MEDS: ALLOPURINOL 100 MG TABLET PO SCH (09:08)
[2021-03-15] MEDS: FAMOTIDINE (20 MG) 20 MG TABLET PO SCH (09:08)
[2021-03-15] MEDS: VIT B CMPLX 3/FA/VIT C/BIOTIN 1 TAB TABLET PO SCH (09:08)
[2021-03-15] MEDS: NYSTATIN (PYXIS) 500,000 UNIT/5 ML ORAL.SUSP PO SCH ×3 (09:08→17:49)
[2021-03-15] MEDS: Z GUARD REMEDY 2 OZ OINT TP SCH (09:08)
[2021-03-15 09:11] LABS: CALCIUM, SERUM 8.8 mg/dL (8.5-10.1); CARBON DIOXIDE 26 mmol/L (21-32); CHLORIDE 98 mmol/L (98-107); GLUCOSE 107 mg/dL (74-106); POTASSIUM 4.3 mmol/L (3.5-5.1); SODIUM SERUM 136 mmol/L (136-145); UREA NITROGEN, BLOOD 67 mg/dL (7-18)
[2021-03-15 09:12] LABS: CREATININE 7.7 mg/dL (0.6-1.3)
[2021-03-15 09:35] LABS: HEMATOCRIT 20 % (39-51); HEMOGLOBIN 6.8 g/dL (13.5-17.5)
[2021-03-15 11:03] LABS: LYMPHOCYTES % (MANUAL) 16 % (16-48); MONOCYTES % (MANUAL) 10 % (0-11.0); NEUTROPHILS % (MANUAL) 74 (42-76)
--- NOTE | 2021-03-15 15:30 | NUR ---
MS RN NOTES RECEIVED REPORTS FROM JAYLYN WEBER AT THIS TIME. PT ONGOING BLOOD TRANSFUSION. WILL CONTINUE TO MONITOR
--- NOTE | 2021-03-15 16:00 | NUR ---
PT ONGOING BLOOD TRANSFUSION AT THIS TIME, PT EDUCATION TO REPORT ANY ADVERSE REACTION OF TRANSFUSION SUCH HIVES, FEVER, CHILLS, SOB, BACK ACHE. PT VERBALIZED UNDERSTANDING. VS BP 128/74, HR 69, RR 18, T 97.8, SPO2 96%. WILL CONTINUE TO MONITOR
--- NOTE | 2021-03-15 17:08 | NUR ---
BLOOD TRANSFUSION COMPLETED AT THIS TIME, NO REPORT OF ADVERSE REACTION OF TRANSFUSION SUCH HIVES, FEVER, CHILLS, SOB, BACK ACHE. . VS BP 130/76, HR 79, RR 20, T 98.2, SPO2 98%. WILL CONTINUE WITH PLAN OF CARE
[2021-03-15] MEDS: TAMSULOSIN 0.4 MG CAP.SR.24H PO SCH (17:49)
--- NOTE | 2021-03-15 19:19 | NUR ---
MS RN CLOSING NOTES PT AWAKE IN BED AT THIS TIME .. PT REMAINED STABLE THROUGHOUT SHIFT. ALL CARE, NEEDS, TREATMENT AND MEDICATIONS ADMINISTERED ANTICIPATED PER ORDER. PT KEPT CLEAN AND DRY. SAFETY PRECAUTIONS IN PLACE AND MAINTAINED AT ALL TIMES. BED IN LOWEST LOCKED POSITION, HOB ELEVATED, SIDE RAILS UP X 2. CALL LIGHT AND TABLE WITHIN REACH. WILL CONTINUE TO MONITOR
--- NOTE | 2021-03-15 20:13 | NUR ---
AWAKE AND ALERT NOTED HE IS SCRATCHING THE LEFT ARM LOTION APPLIED CALL LIGHT WITHIN HIS REACH SMILING
[2021-03-15] MEDS: TRAZODONE 50 MG TABLET PO SCH (21:13)
[2021-03-16] MEDS: ACETYLCYSTEINE 10% SOLN 400 MG/4 ML VIAL NEB SCH ×4 (00:42→23:37)
--- NOTE | 2021-03-16 04:40 | NUR ---
ENDING NOTES: >ALERT AND ORIENTATED X2 >SLEPT OFF AND ON THRU THE NIGHT >BED ALARM ON THRU THE NIGHT PATIENT NOT MAKING ANY ATTEMPT TO GET OOB >INCONTINENT STOOL x3 SOFT MUSHY IN CONSISTENCY KEPT CLEAN >WITH BED MOBILITY HE HELPS WHEN BEING REPOSITIONED, EXCEPT HE WILL ROLL BACK ONTO HIS BACK AFTER WE REPOSITIONED HIM AND STUFF PILLOW IN AN ATTEMPT TO KEEP HIM ON HIS SIDES >PLEASANT AND SMILING
--- NOTE | 2021-03-16 07:55 | NUR ---
MS RN OPENING NOTES PATIENT IS IN BED RESTING, PATIENT IS IN NO ACUTE DISTRESS. PATIENT IS ON ROOM AIR, NO SOB NOTED. SAFETY PRECAUTIONS ARE ON, BED IN THE LOWEST POSITION WITH SIDE RAILS UP, CALL LIGHT WITHIN REACH. WILL CONTINUE TO MONITOR CLOSELY.
[2021-03-16 08:00] VITALS: BP 130/62
[2021-03-16 08:17] LABS: BASOPHILS % (AUTO) 0.7 % (0.0-2.0); EOSINOPHILS % (AUTO) 1.5 % (0.0-6.0); HEMATOCRIT 24 % (39-51); HEMOGLOBIN 8.2 g/dL (13.5-17.5); LYMPHOCYTES # (AUTO) 1.4 /CMM (0.8-4.8); LYMPHOCYTES % (AUTO) 29.5 % (20.0-44.0); MEAN CORPUSCULAR HGB CONC 34 g/dl (31.0-36.0); MEAN CORPUSCULAR VOLUME 99 fL (80-96); MONOCYTES # (AUTO) 0.4 /CMM (0.1-1.30); NEUTROPHILS # (AUTO) 2.8 /CMM (1.8-8.9); NEUTROPHILS % (AUTO) 59.3 % (43.0-81.0); PLATELET COUNT (AUTO) 96 /CMM (150-450); RED BLOOD CELL COUNT(AUTO) 2.46 MIL/uL (4.5-6.0); WHITE BLOOD COUNT (AUTO) 4.6 K/uL (4.3-11.0)
[2021-03-16 08:32] LABS: CALCIUM, SERUM 8.7 mg/dL (8.5-10.1); CARBON DIOXIDE 23 mmol/L (21-32); CHLORIDE 98 mmol/L (98-107); GLUCOSE 100 mg/dL (74-106); POTASSIUM 4.6 mmol/L (3.5-5.1); SODIUM SERUM 135 mmol/L (136-145)
[2021-03-16] MEDS: CHLORHEXIDINE GLUCONATE 15 ML UDC MM SCH ×2 (08:37→17:06)
[2021-03-16] MEDS: VIT B CMPLX 3/FA/VIT C/BIOTIN 1 TAB TABLET PO SCH (08:37)
[2021-03-16] MEDS: NYSTATIN (PYXIS) 500,000 UNIT/5 ML ORAL.SUSP PO SCH ×3 (08:37→17:06)
[2021-03-16] MEDS: FAMOTIDINE (20 MG) 20 MG TABLET PO SCH (08:37)
[2021-03-16] MEDS: BICALUTAMIDE 50 MG TABLET PO SCH (08:37)
[2021-03-16 08:38] LABS: ALANINE AMINOTRANSFERASE 71 U/L (12-78); ALBUMIN 3.5 g/dL (3.4-5.0); ALKALINE PHOSPHATASE 154 U/L (46-116); ASPARTATE AMINOTRANSFERASE 46 U/L (15-37); BILIRUBIN,TOTAL 1.4 mg/dL (0.2-1.0); MAGNESIUM 2.1 mg/dL (1.8-2.4); PHOSPHORUS 6.8 mg/dL (2.5-4.9); TOTAL PROTEIN, SERUM 7.2 g/dL (6.4-8.2)
[2021-03-16] MEDS: Z GUARD REMEDY 2 OZ OINT TP SCH (08:38)
[2021-03-16] MEDS: ALLOPURINOL 100 MG TABLET PO SCH (08:38)
[2021-03-16 08:39] LABS: UREA NITROGEN, BLOOD 82 mg/dL (7-18)
[2021-03-16 16:26] VITALS: BP 134/83
[2021-03-16] MEDS: TAMSULOSIN 0.4 MG CAP.SR.24H PO SCH (17:06)
--- NOTE | 2021-03-16 18:44 | NUR ---
MS RN CLOSING NOTES PATIENT IS IN BED RESTING, PATIENT IS IN NO ACUTE DISTRESS. PATIENT IS ON ROOM AIR, NO SOB NOTED. PATIENT HAD HD DIALYSIS DONE 2 L OUT. SAFETY PRECAUTIONS ARE ON, BED IN THE LOWEST POSITION WITH SIDE RAILS UP, CALL LIGHT WITHIN REACH. ENDORSE PATIENT TO COUNSELOR SUPERVISOR NURSE FOR LISET.
[2021-03-16 20:00] VITALS: BP 129/74
[2021-03-16] MEDS: TRAZODONE 50 MG TABLET PO SCH (21:29)
[2021-03-17 06:33] LABS: BASOPHILS % (AUTO) 0.8 % (0.0-2.0); EOSINOPHILS % (AUTO) 1.2 % (0.0-6.0); HEMATOCRIT 24 % (39-51); HEMOGLOBIN 8.4 g/dL (13.5-17.5); LYMPHOCYTES # (AUTO) 1.2 /CMM (0.8-4.8); LYMPHOCYTES % (AUTO) 27.1 % (20.0-44.0); MEAN CORPUSCULAR HGB CONC 34 g/dl (31.0-36.0); MEAN CORPUSCULAR VOLUME 99 fL (80-96); MONOCYTES # (AUTO) 0.4 /CMM (0.1-1.30); NEUTROPHILS # (AUTO) 2.6 /CMM (1.8-8.9); NEUTROPHILS % (AUTO) 60.9 % (43.0-81.0); PLATELET COUNT (AUTO) 87 /CMM (150-450); RED BLOOD CELL COUNT(AUTO) 2.47 MIL/uL (4.5-6.0); WHITE BLOOD COUNT (AUTO) 4.3 K/uL (4.3-11.0)
[2021-03-17 07:13] LABS: CALCIUM, SERUM 8.4 mg/dL (8.5-10.1); CARBON DIOXIDE 23 mmol/L (21-32); CHLORIDE 97 mmol/L (98-107); GLUCOSE 85 mg/dL (74-106); PHOSPHORUS 6.3 mg/dL (2.5-4.9); POTASSIUM 4.3 mmol/L (3.5-5.1); SODIUM SERUM 134 mmol/L (136-145); UREA NITROGEN, BLOOD 64 mg/dL (7-18)
[2021-03-17 07:26] LABS: CREATININE 7.5 mg/dL (0.6-1.3)
--- NOTE | 2021-03-17 07:28 | NUR ---
MS DE LA O CLOSING NOTES PATIENT IS IN BED RESTING, PATIENT IS IN NO ACUTE DISTRESS. PATIENT IS ON ROOM AIR, NO SOB NOTED. PATIENT HAD HD DIALYSIS DONE 2 L OUT. SAFETY PRECAUTIONS ARE ON, BED IN THE LOWEST POSITION WITH SIDE RAILS UP, CALL LIGHT WITHIN REACH AND ANSWERED PROMPTLY Addendum: 03/17/21 at 1137 by MICHAEL WEI RN *OPENING* PATIENT DUE FOR PERMACATH PLACEMENT TOMORROW , CONSENT SIGNED AND IN CHART
--- NOTE | 2021-03-17 07:28 | NUR ---
MS RN NOTES SLEPT WELL WITH INTERVALS,DENIES DISCOMFORTS,REMAINS COMPLIANT WITH MED.IN NO ACUTE DISTRESS.
[2021-03-17] MEDS: ACETYLCYSTEINE 10% SOLN 400 MG/4 ML VIAL NEB SCH ×3 (07:35→23:30)
[2021-03-17 07:52] LABS: LYMPHOCYTES % (MANUAL) 25 % (16-48); MONOCYTES % (MANUAL) 8 % (0-11.0); NEUTROPHILS % (MANUAL) 67 (42-76)
[2021-03-17 08:00] VITALS: BP 136/76
[2021-03-17] MEDS: ALLOPURINOL 100 MG TABLET PO SCH (09:04)
[2021-03-17] MEDS: NYSTATIN (PYXIS) 500,000 UNIT/5 ML ORAL.SUSP PO SCH ×3 (09:04→17:19)
[2021-03-17] MEDS: VIT B CMPLX 3/FA/VIT C/BIOTIN 1 TAB TABLET PO SCH (09:04)
[2021-03-17] MEDS: FAMOTIDINE (20 MG) 20 MG TABLET PO SCH (09:04)
[2021-03-17] MEDS: CHLORHEXIDINE GLUCONATE 15 ML UDC MM SCH ×2 (09:04→17:19)
[2021-03-17] MEDS: BICALUTAMIDE 50 MG TABLET PO SCH (09:04)
[2021-03-17] MEDS: Z GUARD REMEDY 2 OZ OINT TP SCH (09:05)
[2021-03-17] MEDS ORDERED: ENOXAPARIN SODIUM 40 MG/0.4 ML DISP.SYRIN SQ SCH (13:00)
[2021-03-17 16:00] VITALS: BP 139/78
[2021-03-17] MEDS: TAMSULOSIN 0.4 MG CAP.SR.24H PO SCH (17:19)
--- NOTE | 2021-03-17 17:20 | NUR ---
MS RN CLOSING NOTES PATIENT IS IN BED RESTING, PATIENT IS IN NO ACUTE DISTRESS. PATIENT IS ON ROOM AIR, NO SOB NOTED. PATIENT HAD HD DIALYSIS DONE 2 L OUT. PATIENT REMOVED IV , NEW IV PLACED 22G RIGHT HAND , PATENT AND FLUSHING WELL. SAFETY PRECAUTIONS ARE ON, BED IN THE LOWEST POSITION WITH SIDE RAILS UP, CALL LIGHT WITHIN REACH AND ANSWERED PROMPTLY
--- NOTE | 2021-03-17 19:05 | NUR ---
MS RN OPENING NOTES: RECEIVED PATIENT IN BED, AWAKE, A/O X2, FORGETFUL. NO S/S OF DISTRESS NOTED. CALL LIGHT WITHIN REACH. BED ALARM ON. BED IN LOWEST AND LOCKED POSITION. HOB ELEVATED. WITH RIGHT IJ HEMODIALYSIS CATHETER INTACT. FOR PERMA CATH PLACEMENT TOMORROW, CONSENT ALREADY SIGNED BY THE PATIENT'S SON AND ATTACHED TO THE CHART.
[2021-03-17 20:00] VITALS: BP 136/64
[2021-03-17] MEDS: TRAZODONE 50 MG TABLET PO SCH (21:28)
[2021-03-18] VITALS (8 sets, daily range): BP systolic 111–147; BP diastolic 60–99
[2021-03-18 06:22] LABS: BASOPHILS % (AUTO) 0.9 % (0.0-2.0); EOSINOPHILS % (AUTO) 0.6 % (0.0-6.0); LYMPHOCYTES # (AUTO) 1.4 /CMM (0.8-4.8); LYMPHOCYTES % (AUTO) 33.2 % (20.0-44.0); MEAN CORPUSCULAR HGB CONC 34 g/dl (31.0-36.0); MEAN CORPUSCULAR VOLUME 98 fL (80-96); MONOCYTES # (AUTO) 0.5 /CMM (0.1-1.30); MONOCYTES % (AUTO) 11.4 % (2.0-12.0); NEUTROPHILS # (AUTO) 2.3 /CMM (1.8-8.9); NEUTROPHILS % (AUTO) 53.9 % (43.0-81.0); PLATELET COUNT (AUTO) 73 /CMM (150-450); WHITE BLOOD COUNT (AUTO) 4.2 K/uL (4.3-11.0)
[2021-03-18 06:51] LABS: HEMATOCRIT 20 % (39-51); HEMOGLOBIN 6.7 g/dL (13.5-17.5)
--- NOTE | 2021-03-18 06:55 | NUR ---
CRITICAL RESULTS- HEMOGLOBIN: 6.7, HCT:20, RELAYED TO MILA CEJA.
--- NOTE | 2021-03-18 07:05 | NUR ---
RN OPENING NOTES RECEIVED PT AWAKE IN BED AT THIS TIME. AOX2-3. PT ABLE TO MAKE NEEDS. NO SOB NOTED, NO S/O ANY ACUTE DISTRESS NOTED, NO C/O OF PAIN AT THIS TIME. STABLE ON RA. RESPIRATIONS EVEN AND UNLABORED. IV ACCESS IN RIGHT HAND G#22 INTACT, PATENT AND FLUSHING WELL. RIJ NOTED IN PLACE, CLEAN AND DRY. SAFETY PRECAUTIONS IN PLACE AND MAINTAINED AT ALL TIMES. BED IN LOWEST LOCKED POSITION, HOB ELEVATED, SIDE RAILS UP X 2. CALL LIGHT AND TABLE WITHIN REACH. WILL CONTINUE TO MONITOR
[2021-03-18 07:12] LABS: CALCIUM, SERUM 8.5 mg/dL (8.5-10.1); CARBON DIOXIDE 28 mmol/L (21-32); CHLORIDE 98 mmol/L (98-107); CREATININE 6.5 mg/dL (0.6-1.3); GLUCOSE 88 mg/dL (74-106); MAGNESIUM 1.9 mg/dL (1.8-2.4); PHOSPHORUS 5.2 mg/dL (2.5-4.9); POTASSIUM 4.1 mmol/L (3.5-5.1); SODIUM SERUM 135 mmol/L (136-145); UREA NITROGEN, BLOOD 52 mg/dL (7-18)
[2021-03-18] MEDS: FAMOTIDINE (20 MG) 20 MG TABLET PO SCH (08:11)
[2021-03-18] MEDS: ACETYLCYSTEINE 10% SOLN 400 MG/4 ML VIAL NEB SCH ×3 (08:20→23:45)
[2021-03-18] MEDS: ALLOPURINOL 100 MG TABLET PO SCH (09:05)
[2021-03-18] MEDS: NYSTATIN (PYXIS) 500,000 UNIT/5 ML ORAL.SUSP PO SCH ×3 (09:05→16:48)
[2021-03-18] MEDS: VIT B CMPLX 3/FA/VIT C/BIOTIN 1 TAB TABLET PO SCH (09:05)
[2021-03-18] MEDS: CHLORHEXIDINE GLUCONATE 15 ML UDC MM SCH ×2 (09:05→16:48)
[2021-03-18] MEDS: Z GUARD REMEDY 2 OZ OINT TP SCH (09:10)
[2021-03-18] MEDS: BICALUTAMIDE 50 MG TABLET PO SCH (09:17)
--- NOTE | 2021-03-18 11:13 | NUR ---
PIV INSERTED IN RFA G#20, GOOD BLOOD RETURN NOTED, PT TOLERATED WELL. WILL CONTINUE TO MONITOR
--- NOTE | 2021-03-18 12:20 | NUR ---
PT SCHEDULED FOR BLOOD TRANSFUSION. PT EDUCATION PROVIDED TO REPORT ANY ADVERSE REACTIONS TO TRANSFUSION SUCH ACHES, SOB, FEVER, HIVES, CHILLS. PT VERBALIZED UNDERSTANDING. PRE-TRANSFUSION VS BP 135/74, HR 70, RR 20, T 98.0, SPO2 98%. BLOOD PICKED UP AND VERIFIED WITH SKIAGRAPHER. BLOOD VERIFIED AT PATIENT'S BEDSIDE WITH ANOTHER NURSE AND REFERENCED WITH PATIENTS' IDENTIFIER (NAME/DATE OF ). NO S/O DISCOLORATION, NO CLOTTING, NO LEAKAGE NOTED.
--- NOTE | 2021-03-18 12:20 | NUR ---
BLOOD TRANSFUSION STARTED AT THIS TIME. PT EDUCATION PROVIDED TO REPORT ANY ADVERSE REACTIONS TO TRANSFUSION SUCH ACHES, SOB, FEVER, HIVES, CHILLS. PT VERBALIZED UNDERSTANDING. VS BP 129/62, HR 72, RR 18, T 97.7, SPO2 95%. WILL CONTINUE TO MONITOR
--- NOTE | 2021-03-18 12:21 | NUR ---
PT PROVIDED WITH [facility] BLOOD TRANSFUSION GUIDE. WILL CONTINUE WITH PLAN OF CARE
--- NOTE | 2021-03-18 12:37 | NUR ---
PT ONGOING BLOOD TRANSFUSION AT THIS TIME. NO REPORTS OF ANY ADVERSE REACTIONS TO TRANSFUSION SUCH ACHES, SOB, FEVER, HIVES, CHILLS, PT REMAINS AFEBRILE. VS BP 111/83, HR 95, RR 18, T 98.0, SPO2 97% ON RA. WILL CONTINUE TO MONITOR
--- NOTE | 2021-03-18 13:07 | NUR ---
PT ONGOING BLOOD TRANSFUSION AT THIS TIME. NO REPORTS OF ANY ADVERSE REACTIONS TO TRANSFUSION. PT REMAINS AFEBRILE, NO C/O ACHES, SOB, FEVER, HIVES, CHILLS. VS BP 145/99, HR 87, RR 18, T 97.9, SPO2 96% ON RA. WILL CONTINUE TO MONITOR
--- NOTE | 2021-03-18 14:14 | NUR ---
PT ONGOING BLOOD TRANSFUSION AT THIS TIME. NO REPORTS OF ANY ADVERSE REACTIONS TO TRANSFUSION SUCH ACHES, SOB, FEVER, HIVES, CHILLS, PT REMAINS AFEBRILE. VS BP 128/67, HR 86, RR 18, T 98.2 SPO2 97% ON RA. WILL CONTINUE TO MONITOR
--- NOTE | 2021-03-18 14:28 | NUR ---
BLOOD TRANSFUSION COMPLETED AT THIS TIME. NO ADVERSE REACTIONS TO TRANSFUSION SUCH ACHES, SOB, FEVER, HIVES, CHILLS, NOTED. VS BP 136/66, HR 74, RR 18, T 97.8 SPO2 95% ON RA. WILL CONTINUE WITH PLAN OF CARE
--- NOTE | 2021-03-18 14:51 | NUR ---
RECEIVED ORDERS FROM DR. ALVARENGA TO KEEP PATIENT ON NPO POST MIDNIGHT FOR PROCEDURE TOMORROW. ORDERS MADE AND CARRIED OUT. WILL CONTINUE TO MONITOR PATIENT.
[2021-03-18 16:19] LABS: OCCULT BLOOD STOOL NEGATIVE (NEGATIVE)
[2021-03-18] MEDS: TAMSULOSIN 0.4 MG CAP.SR.24H PO SCH (17:08)
--- NOTE | 2021-03-18 18:27 | NUR ---
MS RN CLOSING NOTES PT AWAKE IN BED AT THIS TIME. PT REMAINED STABLE THROUGHOUT SHIFT. ALL CARE, NEEDS, TREATMENT AND MEDICATIONS ADMINISTERED ANTICIPATED PER ORDER. PT KEPT CLEAN AND DRY. PT TOLERATED BLOOD TRANSFUSION WELL TODAY. SAFETY PRECAUTIONS IN PLACE AND MAINTAINED AT ALL TIMES. BED IN LOWEST LOCKED POSITION, HOB ELEVATED, SIDE RAILS UP X 2. CALL LIGHT AND TABLE WITHIN REACH. WILL ENDORSE TO SHEET ROCK INSTALLER NURSE FOR LISET
--- NOTE | 2021-03-18 18:31 | NUR ---
PATIENT FOR SCHEDULED PROCEDURE TOMORROW ORDERED BY MD. CONSENT SIGNED BY PATIENT AND VERBALIZED UNDERSTANDING REGARDING CONSENT THAT WAS EXPLAINED BY MD. CONSENTS ATTACHED TO CHART. ENDORSED TO NEXT SHIFT.
--- NOTE | 2021-03-18 19:52 | NUR ---
MS RN OPENING NOTE PATIENT A/OX2; ABLE TO MAKE NEEDS KNOWN, SOME CONFUSION NOTED. ON ROOM AIR TOLERATING WELL WITH NO SOB. RFA #20G S/L; PATENT AND INTACT. RIGHT HAND #22G S/L; PATENT AND INTACT. RIGHT IJ HD CATH INTACT; DRESSING KEPT C/D/I. DENIES PAIN OR DISCOMFORT AT THIS TIME. SAFETY MEASURES IN PLACE: BED IN LOWEST LOCKED POSITION, SIDE RAILS UPX2, CALL LIGHT WITHIN EASY REACH, BED ALARMS ON. WILL CONTINUE PLAN OF CARE.
[2021-03-18 19:58] LABS: BASOPHILS % (AUTO) 0.7 % (0.0-2.0); EOSINOPHILS % (AUTO) 0.4 % (0.0-6.0); HEMATOCRIT 25 % (39-51); LYMPHOCYTES # (AUTO) 1.1 /CMM (0.8-4.8); LYMPHOCYTES % (AUTO) 25.5 % (20.0-44.0); MEAN CORPUSCULAR HGB CONC 34 g/dl (31.0-36.0); MEAN CORPUSCULAR VOLUME 95 fL (80-96); MONOCYTES # (AUTO) 0.5 /CMM (0.1-1.30); MONOCYTES % (AUTO) 11.9 % (2.0-12.0); NEUTROPHILS # (AUTO) 2.7 /CMM (1.8-8.9); NEUTROPHILS % (AUTO) 61.5 % (43.0-81.0); PLATELET COUNT (AUTO) 69 /CMM (150-450); RED BLOOD CELL COUNT(AUTO) 2.64 MIL/uL (4.5-6.0); WHITE BLOOD COUNT (AUTO) 4.4 K/uL (4.3-11.0)
[2021-03-18 20:02] LABS: HEMOGLOBIN 8.6 g/dL (13.5-17.5)
[2021-03-18] MEDS: TRAZODONE 50 MG TABLET PO SCH (22:27)
[2021-03-19] VITALS (9 sets, daily range): BP systolic 112–131; BP diastolic 52–72
[2021-03-19 06:22] LABS: BASOPHILS % (AUTO) 0.9 % (0.0-2.0); EOSINOPHILS % (AUTO) 0.7 % (0.0-6.0); HEMATOCRIT 25 % (39-51); HEMOGLOBIN 8.3 g/dL (13.5-17.5); LYMPHOCYTES # (AUTO) 1.3 /CMM (0.8-4.8); MEAN CORPUSCULAR HGB CONC 34 g/dl (31.0-36.0); MEAN CORPUSCULAR VOLUME 96 fL (80-96); MONOCYTES # (AUTO) 0.5 /CMM (0.1-1.30); MONOCYTES % (AUTO) 12.2 % (2.0-12.0); NEUTROPHILS # (AUTO) 2.4 /CMM (1.8-8.9); NEUTROPHILS % (AUTO) 56.2 % (43.0-81.0); PLATELET COUNT (AUTO) 74 /CMM (150-450); RED BLOOD CELL COUNT(AUTO) 2.56 MIL/uL (4.5-6.0); WHITE BLOOD COUNT (AUTO) 4.3 K/uL (4.3-11.0)
--- NOTE | 2021-03-19 06:38 | NUR ---
MS RN CLOSING NOTE PATIENT A/OX2; ABLE TO MAKE NEEDS KNOWN. ON ROOM AIR TOLERATING WELL WITH NO SOB. RFA #20G S/L; PATENT AND INTACT. RIGHT HAND #22G S/L; PATENT AND INTACT. RIGHT IJ HD CATH INTACT; DRESSING KEPT C/D/I. DENIES PAIN OR DISCOMFORT AT THIS TIME. MAINTAINED ON NPO DIET. SAFETY MEASURES IN PLACE: BED IN LOWEST LOCKED POSITION, SIDE RAILS UPX2, CALL LIGHT WITHIN EASY REACH, AND BED ALARMS ON. WILL ENDORSE PLAN OF CARE TO ONCOMING MORNING RN.
[2021-03-19 07:03] LABS: CALCIUM, SERUM 8.3 mg/dL (8.5-10.1); CARBON DIOXIDE 27 mmol/L (21-32); CHLORIDE 101 mmol/L (98-107); CREATININE 5.5 mg/dL (0.6-1.3); GLUCOSE 86 mg/dL (74-106); MAGNESIUM 1.9 mg/dL (1.8-2.4); PHOSPHORUS 5.1 mg/dL (2.5-4.9); SODIUM SERUM 139 mmol/L (136-145); UREA NITROGEN, BLOOD 41 mg/dL (7-18)
[2021-03-19] MEDS: ACETYLCYSTEINE 10% SOLN 400 MG/4 ML VIAL NEB SCH ×2 (07:35→15:30)
[2021-03-19] MEDS: CHLORHEXIDINE GLUCONATE 15 ML UDC MM SCH ×2 (08:11→17:33)
[2021-03-19] MEDS: NYSTATIN (PYXIS) 500,000 UNIT/5 ML ORAL.SUSP PO SCH ×3 (08:12→17:33)
[2021-03-19] MEDS: FAMOTIDINE (20 MG) 20 MG TABLET PO SCH (08:12)
[2021-03-19] MEDS: ALLOPURINOL 100 MG TABLET PO SCH (08:12)
[2021-03-19] MEDS: VIT B CMPLX 3/FA/VIT C/BIOTIN 1 TAB TABLET PO SCH (08:12)
[2021-03-19] MEDS: BICALUTAMIDE 50 MG TABLET PO SCH (08:13)
[2021-03-19] MEDS: Z GUARD REMEDY 2 OZ OINT TP SCH (08:14)
--- NOTE | 2021-03-19 09:28 | NUR ---
RN NOTES: TALK TO DR ALBARRAN (ANESTHESIOLOGIST) REGARDING DIALYSIS SCHEDULE OF PATIENT, PATIENT HAS DAILY DIALYSIS SCHEDULE AND SAID DR WANTS TO HAVE THE DIALYSIS AT LEAST BEFORE 0900 OR 6 HOURS PRIOR TO PROCEDURE AT 1500, NOTIFY DIALYSIS NURSE AND CALLED HIM AGAIN FOR FOLLOW UP AT 0900 AND SAID HE WILL NOT ABLE TO DO IT, CALLED AND NOTIFY DR ALBARRAN AND ORDER TO HAVE THE DIALYSIS NURSE ASSESS THE RESIDENT PRIOR TO PROCEDURE IF HE IS OK TO GO AND HE CAN RESUME THE DIALYSIS AFTER THE PROCEDURE. Addendum: 03/19/21 at 0947 by MARIELLA BAILEY RN RN NOTES: DIALYSIS NURSE [place] CAME CALL DR ALBARRAN AND VERBALIZED NO DIALYSIS BECAUSE IT WAS TOO CLOSE, DIALYSIS NURSE WAS MADE AWARE TO HAVE THE ASSESSMENT BEFORE THE DIALYSIS AND HAVE THE DIALYSIS AFTER THE PROCEDURE.
[2021-03-19] MEDS ORDERED: ANESTHESIA TRAY IN PYXIS 1 EA TRAY MC ONE (11:16)
--- NOTE | 2021-03-19 12:31 | NUR ---
RS OPENING NOTES: RECEIVED RESIDENT AWAKE IN BED, A/OX4, DIAGNOSIS IS CHF, RENAL FAILURE R/O PNA ON RA- 95 % NO SOB OR ANY RESP DISTRESS WAS OBSERVE, PATIENT IS NPO PRIOR TO PROCEDURE OF PERMACATH AND AV FISTULA REPLACEMENT AT 1500, ON MONITORING FOR H&H TO TRANSFUSE PRBC IF HH<7, H%H IS 8.3, BED IN LOW POSITION, CALL LIGHTS WITHIN REACH,PATIENT IS ABLE TO EXPRESS NEEDS, REMIND RESIDENT TO USE CALL LIGHTS WHEN NEEDED ASSISTANCE, WILL CONTINUE TO MONITOR.
[2021-03-19] MEDS ORDERED: IOHEXOL 240MG/ML 0 ML IV ONE (12:58)
[2021-03-19] MEDS ORDERED: HEPARIN SODIUM, PORCINE 1,000 UNIT/ML VIAL ONE (12:58)
[2021-03-19] MEDS ORDERED: LIDOCAINE HCL/MPF 1% 30 ML VIAL IJ ONE (12:58)
[2021-03-19] MEDS ORDERED: GELATIN SPONGE,ABSORBABLE 1 SPONGE SPONGE TP ONE (12:59)
[2021-03-19] MEDS ORDERED: CELLULOSE,OXIDIZED 1 PKT EACH MC ONE (12:59)
[2021-03-19] MEDS ORDERED: THROMBIN (BOVINE) 5,000 UNITS VIAL TP ONE (13:01)
--- NOTE | 2021-03-19 13:14 | NUR ---
RN NOTES: PATIENT ASSISTANT ADMINISTRATOR FROM ROOM TO SURGERY FOR THE PROCEDURE C/O OR NURSE KEVIN AT 1310 ON STABLE CONDITION
[2021-03-19] MEDS ORDERED: FENTANYL PF 250MCG/5ML AMPUL ONE (13:41)
[2021-03-19] MEDS ORDERED: FENTANYL PF 100MCG/2ML AMPUL ONE (13:41)
--- NOTE | 2021-03-19 15:46 | NUR ---
RN NOTES: PATIENT CAME BACK FROM SURGERY [id number], BIOPSY DONE AT RIGHT UPPER CHEST, COVERED WITH BANDAGE, NO BLEEDING WAS OBSERVED V/S ARE WNR BP-126/63, P-99- O2 92 ON RA TEMP-98.0, ROTHMAN CATETHER REMOVE WITH 800CC URINE OUTPUT.
[2021-03-19] MEDS ORDERED: Nepro PO (16:22)
[2021-03-19] MEDS ORDERED: NYST5ORA PO (16:22)
[2021-03-19] MEDS ORDERED: ACET1OOV6 NEB (16:22)
[2021-03-19] MEDS ORDERED: APIX2.5T PO (16:22)
--- NOTE | 2021-03-19 16:56 | NUR ---
RN NOTES PT RETURNED TO UNIT AT 1643 ACCOMPANIED BY O.R. NURSES MAUREEN AND DOUG S/P PLACEMENT OF PERMACTAH ON UPPER CHEST WALL AND AV FISTULA ON CESAR BOTH WITH THICK DRESSING IN PLACE WITH NO ACTIVE BLEEDING NOTED AT SITES. PERMA CATH IS READY TO USE PER DR ALVARENGA. RIGHT IJ HD CATH REMOVED WELL BY DR ALVARENGA WITH DRESSING AT SITE C/D/I. PT IS AWAKE, A.O X2-3. VERBALLY RESPONSIVE WITH NO C/O PAIN OR DISCOMFORTS VOICED AT THIS TIME. ICE BAG IN PLACE TO CESAR AV FISTULA SITE AND TO CONTINUE TO APPLY OVERNIGHT. ALL POST OP ORDERS NOTED AND WILL CARRY OUT. SAFETY MEASURES KEPT IN PLACE. WILL CONTINUE TO MONITOR PT.
[2021-03-19] MEDS ORDERED: APIXABAN 2.5 MG TABLET PO SCH (17:00)
[2021-03-19] MEDS: TAMSULOSIN 0.4 MG CAP.SR.24H PO SCH (17:34)
--- NOTE | 2021-03-19 18:08 | NUR ---
RN NOTES PT STARTED BY HD NURSE ON HEMODIALYSIS VIA PERMA CATH ON UPPER RCW. PRE-HD V/S CHECKED: BP 122/62, HR 72, R 18 AND T 97.9f. WILL CONTINUE TO MONITOR
--- NOTE | 2021-03-19 18:37 | NUR ---
MS RN CLOSING NOTES: PATIENT WENT BACK TO HIS ROOM FROM SURGERY, SLEEPY BUT AROUSABLE, VITAL SIGN ARE WITHIN NORMAL RANGE, RESPONDING TO VERBAL AND TACTILE STIMULI, WITH PLACEMENT OF RIGHT UPPER CHEST FISTULA AND LEFT AV FISTULA, IJ FISTULA REMOVED NO BLEEDING WAS OBSERVED, HEMODIALYSIS IN PROGRESS AND STARTED AT 1745 AT RIGHT UPPER CHEST PERMACATH, TEMPORARY NOT USE THE AV FISTULA RESIDENT IS RESPONDING WELL TO DIALYSIS , RESUME DIET, RESIDENT WAS ABLE TO TAKE MEDICATION WITHOUT DIFFICULTY SWALLOWING. PATIENT DUE FOR DISCHARGE TONIGHT. ESTIMATED LOFTER TIME 2129. KEPT CLEAN AND DRY, ALL NEEDS MET, WILL ENDORSE TO INCOMING SHIFT.
--- NOTE | 2021-03-19 19:30 | NUR ---
MS RN OPENING NOTES: RECEIVED PATIENT IN BED, AWAKE. A/O X3. ON DIALYSIS AT THIS MOMENT. NO S/S OD DISTRESS NOTED. CALL LIGHT WITHIN REACH. BED ALARM ON. BED IN LOWEST AND LOCKED POSITION. HOB ELEVATED. D/C PACKET ALREADY PREPARED AND PRINTED BY JAYLYN BA.
--- NOTE | 2021-03-19 19:55 | NUR ---
HD FINISHED 1.1L OUT. NO BLEEDING ON THE RIGHT CHEST PERMA CATH.
--- NOTE | 2021-03-19 20:15 | NUR ---
REPORTS GIVEN TO JAYLYN FRANCOIS IN 4 SEASONS [facility].
--- NOTE | 2021-03-19 20:54 | NUR ---
TRAZADONE WILL BE FIVEN TONIGHT AT 2100, ENDORSED TO 4 SEASONS JAYLYN FRANCOIS. IV ON THE RIGHT HAND REMOVED. NO BLEEDING NOTED.
[2021-03-19] MEDS: TRAZODONE 50 MG TABLET PO SCH (21:14)
--- NOTE | 2021-03-19 21:50 | NUR ---
IV ON THE RIGHT FOREARM REMOVED,NO BLEEDING NOTED. PATIENT IS BEING PICKED UP BY THE AMBULANCE. REPORTS GIVEN TO THE AMBULANCE. BELONGINGS WENT WITH THE PATIENT.
== END 2021-03-19 21:50 | DRG 981 ==
LOC: ER 02:50 → TELE1 05:24 → ICU 03-02 16:06 → TELE 03-10 21:12 → MED 03-11 13:41
PROVIDERS: ADMIT Registered Nurse; ATTEND Family Medicine
PROC: 5A1945Z Respiratory Ventilation, 24-96 Consecutive Hours (ICD-10-PCS; principal; 2021-03-01)
PROC: 5A1D70Z Performance of Urinary Filtration, Intermittent, Less than 6 Hours Per Day (ICD-10-PCS; 2021-03-01)
PROC: 02HV33Z Insertion of Infusion Device into Superior Vena Cava, Percutaneous Approach (ICD-10-PCS; 2021-03-01)
PROC: B548ZZA Ultrasonography of Superior Vena Cava, Guidance (ICD-10-PCS; 2021-03-01)
PROC: 0BH18EZ Insertion of Endotracheal Airway into Trachea, Via Natural or Artificial Opening Endoscopic (ICD-10-PCS; 2021-03-02)
PROC: 05H533Z Insertion of Infusion Device into Right Subclavian Vein, Percutaneous Approach (ICD-10-PCS; 2021-03-02)
PROC: B546ZZA Ultrasonography of Right Subclavian Vein, Guidance (ICD-10-PCS; 2021-03-02)
PROC: 30233N1 Transfusion of Nonautologous Red Blood Cells into Peripheral Vein, Percutaneous Approach (ICD-10-PCS; 2021-03-03)
PROC: 03180ZD Bypass Left Brachial Artery to Upper Arm Vein, Open Approach (ICD-10-PCS; 2021-03-19)
PROC: 0JH63XZ Insertion of Tunneled Vascular Access Device into Chest Subcutaneous Tissue and Fascia, Percutaneous Approach (ICD-10-PCS; 2021-03-19)
PROC: 02HV33Z Insertion of Infusion Device into Superior Vena Cava, Percutaneous Approach (ICD-10-PCS; 2021-03-19)
PROC: B518YZA Fluoroscopy of Superior Vena Cava using Other Contrast, Guidance (ICD-10-PCS; 2021-03-19)
DX: J15.9 Unspecified bacterial pneumonia (principal); J96.01 Acute respiratory failure with hypoxia; I50.33 Acute on chronic diastolic (congestive) heart failure; I13.2 Hypertensive heart and chronic kidney disease with heart failure and with stage 5 chronic kidney disease, or end stage renal disease; N17.9 Acute kidney failure, unspecified; N39.0 Urinary tract infection, site not specified; B37.0 Candidal stomatitis; E87.2 Acidosis; N18.5 Chronic kidney disease, stage 5; I25.10 Atherosclerotic heart disease of native coronary artery without angina pectoris; E83.39 Other disorders of phosphorus metabolism; D63.1 Anemia in chronic kidney disease; C61 Malignant neoplasm of prostate; D69.6 Thrombocytopenia, unspecified; E66.01 Morbid (severe) obesity due to excess calories; R62.7 Adult failure to thrive; Z20.822 Contact with and (suspected) exposure to COVID-19; M10.9 Gout, unspecified; N25.0 Renal osteodystrophy; I34.0 Nonrheumatic mitral (valve) insufficiency; Z77.098 Contact with and (suspected) exposure to other hazardous, chiefly nonmedicinal, chemicals; Z95.1 Presence of aortocoronary bypass graft
CPT/HCPCS: 31720; 36410; 36415; 36600; 71045-TC; 76770-TC; 80048-TC; 80053-TC; 80061-TC; 80076-TC; 81001; 82272-TC; 82550-TC; 82570-TC; 82728-TC; 82803-TC; 82962-TC; 83540-TC; 83605-TC; 83735-TC; 83880; 83970; 84100-TC; 84153-TC; 84154-TC; 84155; 84155-TC; 84165; 84300-TC; 84443-TC; 84478-TC; 84484-TC; 84550-TC; 85025-TC; 85610-TC; 85730-TC; 86706; 86803; 86850-TC; 87040-TC; 87081-TC; 87086-TC; 87340; 87806; 90935-TC; 92521; 92526; 93307-TC; 93971-TC; 94002-TC; 94003-TC; 94760-TC; 94799-TC; 97116-TC; 97530-TC; 99082-TC; A4624; A4649; A6253; A6403; C1750; C1769; C9803; G0378; J0330; J0456; J0690; J0692; J0696; J1100; J1644; J1940; J2150; J2405; J2704; J3010; J3490; J7030; J7040; J7042; J7050; J7060; P9016; Q9966; Q9967; U0003

== ENCOUNTER 2022-05-19 18:44 | Inpatient (IN) | payer MEDICARE, OTHER ==
[~2022-05-19] VITALS: Ht 177.8 cm; Wt 60.8 kg
[~2022-05-19 18:44] MED LIST: ACET1OOV6 NEB; ALLO100T PO; AMLO-212 PO; APIX2.5T PO; BICA50TA49 PO; CARV3.122 PO; FAMO40TA70 PO; NYST5ORA PO; Nepro PO; TAMS-12 PO; TRAZ-182 PO; VIT1TABL44 PO
--- NOTE | 2022-05-19 19:19 | NUR ---
KAMALJIT FROM [facility] FOR C/O SOB AND DESATURATION TO 80S ON ROOM AIR. PT PLACED ON 4LPM NC SATTING 98% BREATHING EVEN AND UNLABORED AND DENIES ANY RESPIRITORY DISTRESS IN ASSESSMENT. PLACED ON MONITOR AND V/S WNL.
--- NOTE | 2022-05-19 19:20 | NUR ---
18G IV LINE ESTABLISHED AT [facility]. BLOOD DRAWN AND SENT T O LAB.
--- NOTE | 2022-05-19 19:24 | NUR ---
CPVOD SWAB COLLECTED AND SENT TO LAB
[2022-05-19] MEDS ORDERED: BISA10SU11 RC (19:26)
[2022-05-19] MEDS ORDERED: ACET-868 PO (19:26)
[2022-05-19] MEDS ORDERED: ACET-2605 PO (19:26)
[2022-05-19] MEDS ORDERED: NA P133E RC (19:26)
[2022-05-19] MEDS ORDERED: NITR0.4T48 SL (19:26)
[2022-05-19] MEDS ORDERED: SENN-261 PO (19:26)
[2022-05-19] MEDS ORDERED: MAGN400O6 PO (19:26)
[2022-05-19] MEDS ORDERED: LACT1CAP71 PO (19:26)
[2022-05-19 19:50] LABS: CALCIUM, SERUM 7.8 mg/dL (8.5-10.1); CARBON DIOXIDE 22 mmol/L (21-32); CHLORIDE 106 mmol/L (98-107); CREATININE 4.5 mg/dL (0.6-1.3); GLUCOSE 105 mg/dL (74-106); POTASSIUM 4.1 mmol/L (3.5-5.1); SODIUM SERUM 142 mmol/L (136-145); UREA NITROGEN, BLOOD 21 mg/dL (7-18)
[2022-05-19 19:58] LABS: BASOPHILS % (AUTO) 0.5 % (0.0-2.0); EOSINOPHILS % (AUTO) 0.2 % (0.0-6.0); HEMATOCRIT 31 % (39-51); HEMOGLOBIN 10.4 g/dL (13.5-17.5); LYMPHOCYTES # (AUTO) 0.4 K/uL (0.8-4.8); LYMPHOCYTES % (AUTO) 6.7 % (20.0-44.0); MEAN CORPUSCULAR HGB CONC 34 g/dl (31.0-36.0); MEAN CORPUSCULAR VOLUME 93 fL (80-96); MONOCYTES # (AUTO) 0.4 K/uL (0.1-1.30); MONOCYTES % (AUTO) 7.1 % (2.0-12.0); NEUTROPHILS # (AUTO) 4.8 K/uL (1.8-8.9); NEUTROPHILS % (AUTO) 85.5 % (43.0-81.0); PLATELET COUNT (AUTO) 92 K/uL (150-450); RED BLOOD CELL COUNT(AUTO) 3.34 MIL/uL (4.5-6.0); WHITE BLOOD COUNT (AUTO) 5.6 K/uL (4.3-11.0)
[2022-05-19 20:09] LABS: ALANINE AMINOTRANSFERASE 20 U/L (12-78); ALBUMIN 2.7 g/dL (3.4-5.0); ASPARTATE AMINOTRANSFERASE 49 U/L (15-37); BILIRUBIN,DIRECT 0.3 mg/dL (0.0-0.2); BILIRUBIN,TOTAL 0.8 mg/dL (0.2-1.0); TOTAL PROTEIN, SERUM 6.8 g/dL (6.4-8.2)
[2022-05-19 20:16] LABS: ALKALINE PHOSPHATASE 3185 U/L (46-116)
--- NOTE | 2022-05-19 21:37 | NUR ---
BED 328-1
--- NOTE | 2022-05-19 21:55 | NUR ---
REPORT GIVEN TO SEVERO
[2022-05-19] MEDS ORDERED: NA PHOS,M-B/NA PHOS,DI-BA 1 EA ENEMA RC PRN (22:00)
--- NOTE | 2022-05-19 22:11 | NUR ---
ULTRASOUND AT BEDSIDE
--- NOTE | 2022-05-19 22:24 | NUR ---
PT TRANSFERRING TO 328 VIA ACLS PROTOCOL. VSS. ALL BELONGINGS WITH PT.
[2022-05-19] MEDS ORDERED: Z GUARD REMEDY 4 OZ OINT TP PRN (22:30)
[2022-05-19] MEDS ORDERED: ONDANSETRON HCL/PF 4 MG/2 ML VIAL IVP PRN (22:30)
[2022-05-19] MEDS ORDERED: ACETAMINOPHEN 325 MG TABLET PO PRN (22:30)
--- NOTE | 2022-05-19 22:30 | NUR ---
fitness sales associate notes Received Pt from JAYLYN Benitez. Pt is alert and orientedX2. On 4 L NC. No SOB. No S/S of distress noted. IV site at LAC# 18 is clean, intact and flushes easily. R chest wall HD cath is clean,and intact. Tele monitor showed afib HR at 89. Pt's belonging was checked by JAYLYN Iglesias. Skin assessment is done and performed. Pictures are taken and placed at Pt's chart. [place] Pt to the room and the use of call light. Pt verbalized understanding. Safety precautions is maintained. Bed at low position, brakes locked, side rails upX3, hob elevated, bed alarm is on and call light is within reach. Will continue to monitor.
[2022-05-19 23:00] VITALS: BP 100/57
[2022-05-19] MEDS: TRAZODONE 50 MG TABLET PO SCH (23:20)
[2022-05-19] MEDS: SENNOSIDES 8.6 MG TABLET PO SCH (23:20)
--- NOTE | 2022-05-19 23:42 | NUR ---
RN notes Called Pt son Luther Soni ([phone]) to get consent for HD. Pt stated Pt has HD (T, and wednesday). Left a message to Pt's son. Awaiting to call back. Addendum: 05/20/22 at 0549 by ERNESTO RUBY RN Awaiting for son to call back.
[2022-05-20] VITALS: BP 100/57
[2022-05-20 04:00] VITALS: BP 106/50
[2022-05-20 04:06] LABS: BASOPHILS % (AUTO) 0.6 % (0.0-2.0); EOSINOPHILS % (AUTO) 0.3 % (0.0-6.0); HEMATOCRIT 28 % (39-51); HEMOGLOBIN 9.5 g/dL (13.5-17.5); LYMPHOCYTES # (AUTO) 0.6 K/uL (0.8-4.8); LYMPHOCYTES % (AUTO) 11.9 % (20.0-44.0); MEAN CORPUSCULAR HGB CONC 34 g/dl (31.0-36.0); MEAN CORPUSCULAR VOLUME 93 fL (80-96); MONOCYTES # (AUTO) 0.5 K/uL (0.1-1.30); NEUTROPHILS % (AUTO) 78.2 % (43.0-81.0); PLATELET COUNT (AUTO) 84 K/uL (150-450); RED BLOOD CELL COUNT(AUTO) 3.06 MIL/uL (4.5-6.0); WHITE BLOOD COUNT (AUTO) 5.1 K/uL (4.3-11.0)
[2022-05-20 04:28] LABS: IRON, SERUM 75 ug/dl (50-175); TOTAL IRON BINDING CAPACITY 141 ug/dl (250-450)
[2022-05-20 04:36] LABS: CALCIUM, SERUM 7.7 mg/dL (8.5-10.1); CARBON DIOXIDE 24 mmol/L (21-32); CREATININE 5.1 mg/dL (0.6-1.3); GLUCOSE 91 mg/dL (74-106); MAGNESIUM 2.2 mg/dL (1.8-2.4); PHOSPHORUS 4.1 mg/dL (2.5-4.9); UREA NITROGEN, BLOOD 25 mg/dL (7-18)
[2022-05-20 04:39] LABS: CHOLESTEROL 161 mg/dL (<200); HDL CHOLESTEROL 53 mg/dL (40-60); LDL 79 mg/dL (0-99); THYROID STIMULATING HORMONE 1.278 uIU/mL (0.358-3.74); TRIGLYCERIDES 91 mg/dL (30-150)
[2022-05-20 05:53] LABS: CHLORIDE 108 mmol/L (98-107); POTASSIUM 4.4 mmol/L (3.5-5.1); SODIUM SERUM 145 mmol/L (136-145)
--- NOTE | 2022-05-20 06:39 | NUR ---
RN closing notes Pt is resting in bed comfortably. Pt is alert and orientedX2. On 4 L NC. No SOB. No S/S of distress noted. VS is stable. Routine meds were given as ordered. IV site at LAC# 18 is clean, intact and flushes easily. R chest wall HD cath is clean,and intact. Tele monitor showed accelerate junctional with pvc HR at 84. Kept Pt clean, dry and comfortable. Safety precautions is maintained. Bed at low position, brakes locked, side rails upX3, hob elevated, bed alarm is on and call light is within reach. Will endorse to am nurse for LISET.
--- NOTE | 2022-05-20 08:09 | NUR ---
RN OPENING NOTE PATIENT AWAKE IN BED RESTING, A/O X 2. NO S/S OF PAIN NOTED AT THIS TIME. ON 4L OXYGEN, NO DISTRESS OR SHORTNESS OF BREATH NOTED. IV ACCESS, LAC #18G, INTACT PATENT AND FLUSHING WELL. FALL AND SAFETY MEASURES IN PLACE, BED ALARM ON, BED IN LOW AND LOCK POSITION, CALL LIGHT AND TABLE WITHIN EASY REACH, SIDE RAILS UP X2. WILL CONTINUE TO MONITOR.
[2022-05-20] MEDS: BICALUTAMIDE 50 MG TABLET PO SCH (09:33)
[2022-05-20] MEDS: ACIDOPHILUS/BULGARICUS 1 EACH TAB.CHEW PO SCH ×3 (09:33→17:44)
[2022-05-20] MEDS: ALLOPURINOL 100 MG TABLET PO SCH (09:33)
[2022-05-20 16:53] LABS: C-REACTIVE PROTEIN 14.8 mg/dL (0.0-0.9)
[2022-05-20] MEDS: TAMSULOSIN 0.4 MG CAP.SR.24H PO SCH (17:44)
--- NOTE | 2022-05-20 19:49 | NUR ---
RN CLOSING NOTE PATIENT AWAKE IN BED RESTING, A/O X 2. NO S/S OF PAIN NOTED AT THIS TIME. ON 4L OXYGEN, NO DISTRESS OR SHORTNESS OF BREATH NOTED. IV ACCESS, LAC #18G, INTACT PATENT AND FLUSHING WELL. ALL SCHEDULE MEDICATIONS ADMINISTERED. WOUND CARE IMPLEMENTED. FALL AND SAFETY MEASURES IN PLACE, BED ALARM ON, BED IN LOW AND LOCK POSITION, CALL LIGHT AND TABLE WITHIN EASY REACH, SIDE RAILS UP X2. WILL ENDORSE TO BENCH ASSEMBLER ELECTRICAL.
--- NOTE | 2022-05-20 19:50 | NUR ---
received in bed alert and orientated X2 smiling made him aware at midnight no eating or drinking only his medication But he will have an IV for hydration CT ordered for the AM
[2022-05-20 20:00] VITALS: BP 114/44
[2022-05-20] MEDS: SENNOSIDES 8.6 MG TABLET PO SCH (21:34)
[2022-05-20] MEDS: TRAZODONE 50 MG TABLET PO SCH (21:34)
[2022-05-20] MEDS ORDERED: FAMOTIDINE (20 MG) 20 MG TABLET ONE (21:51)
[2022-05-20] MEDS ORDERED: FAMOTIDINE 40 MG TABLET PO SCH (22:00)
[2022-05-21] VITALS: BP 124/91
[2022-05-21] MEDS ORDERED: IV NS 0.9% 1,000 ML IV ONE (03:00)
[2022-05-21 04:00] VITALS: BP_SYST 134; BP_SYST 135; BP_DIAS 53; BP_DIAS 57
--- NOTE | 2022-05-21 05:53 | NUR ---
CLOSING NOTES: ALERT /ORIENTATED X2 PLEASANT AND COOPERATIVE WHEN BEING REPOSITIONED OR CLEANED D/T INCONTINENCE HE WILL ATTEMPT TO HELP NO SOB THIS 12HR REMAINS ON 02 2 LITERS AND SATS 97% NPO STATUS D/T CT SCAN ORDERED FOR THE AM IV HYDRATION ON GOING ORDERED [place] THE NAIL MAKER D/T ELEVATED BUN AND CREATINE
--- NOTE | 2022-05-21 06:37 | NUR ---
REFUSED AM LADS TODAY
[2022-05-21 08:00] VITALS: BP 103/60
[2022-05-21 08:06] LABS: *ANA ANTI-CENTROMERE B AB <0.2 AI (0.0-0.9); *ANA ANTI-DNA(DS) AB, QN <1 IU/mL (0-9); *ANA ANTI-JO-1 <0.2 AI (0.0-0.9); *ANA ANTICHROMATIN ANTIBODY <0.2 AI (0.0-0.9); *ANA RNP ANTIBODIES <0.2 AI (0.0-0.9); *ANA SJOGREN'S ANTI-SS-A <0.2 AI (0.0-0.9); *ANA SJOGREN'S ANTI-SS-B <0.2 AI (0.0-0.9); *ANAANTI-SCLERODERMA-70 AB <0.2 AI (0.0-0.9); *ANASMITH AB <0.2 AI (0.0-0.9); AFP, TUMOR MARKER 1.2 ng/mL (0.0-8.4)
[2022-05-21] MEDS: ACIDOPHILUS/BULGARICUS 1 EACH TAB.CHEW PO SCH ×3 (09:35→17:21)
[2022-05-21] MEDS: BICALUTAMIDE 50 MG TABLET PO SCH (09:35)
[2022-05-21] MEDS: ALLOPURINOL 100 MG TABLET PO SCH (09:35)
--- NOTE | 2022-05-21 09:56 | NUR ---
WOUND CARE CONSULT: PT PRESENTS WITH UPPER EXTREMITY SKIN TEARS AND DISCOLORATIONS, SACRAL INTACT DEEP TISSUE INJURY AND SCARRING TO LEFT HIP AND LEFT LATERAL LEG, PRESENT ON ADMISSION. RECOMMENDATIONS MADE FOR SKIN PROTECTION WERE DISCUSSED WITH NURSING STAFF. DR MALONE NOTIFIED OF PT ADMISSION. IN AGREEMENT WITH PLAN OF CARE. Addendum: 05/21/22 at 1004 by JENNY HILL WNDNU Amended: Links added.
[2022-05-21] MEDS ORDERED: IV NS 0.9% 500 ML BAG IV ONE (10:30)
[2022-05-21 10:31] LABS: BASOPHILS % (AUTO) 0.3 % (0.0-2.0); EOSINOPHILS % (AUTO) 0.1 % (0.0-6.0); HEMATOCRIT 26 % (39-51); HEMOGLOBIN 8.7 g/dL (13.5-17.5); LYMPHOCYTES # (AUTO) 0.5 K/uL (0.8-4.8); LYMPHOCYTES % (AUTO) 11.6 % (20.0-44.0); MEAN CORPUSCULAR HGB CONC 33 g/dl (31.0-36.0); MEAN CORPUSCULAR VOLUME 94 fL (80-96); MONOCYTES # (AUTO) 0.5 K/uL (0.1-1.30); MONOCYTES % (AUTO) 11.4 % (2.0-12.0); NEUTROPHILS # (AUTO) 3.4 K/uL (1.8-8.9); NEUTROPHILS % (AUTO) 76.6 % (43.0-81.0); PLATELET COUNT (AUTO) 92 K/uL (150-450); RED BLOOD CELL COUNT(AUTO) 2.78 MIL/uL (4.5-6.0); WHITE BLOOD COUNT (AUTO) 4.4 K/uL (4.3-11.0)
[2022-05-21 10:44] LABS: CALCIUM, SERUM 6.9 mg/dL (8.5-10.1); CARBON DIOXIDE 19 mmol/L (21-32); CHLORIDE 106 mmol/L (98-107); CREATININE 6.6 mg/dL (0.6-1.3); GLUCOSE 134 mg/dL (74-106); MAGNESIUM 1.9 mg/dL (1.8-2.4); PHOSPHORUS 3.7 mg/dL (2.5-4.9); SODIUM SERUM 142 mmol/L (136-145); UREA NITROGEN, BLOOD 38 mg/dL (7-18)
[2022-05-21] MEDS ORDERED: IV NS 0.9% 200 ML IV ONE ×2 (11:30)
[2022-05-21 12:00] VITALS: BP 120/60
[2022-05-21 12:04] LABS: BAND % (MANUAL) 1 % (0.0-5.0); LYMPHOCYTES % (MANUAL) 19 % (16-48); MONOCYTES % (MANUAL) 12 % (0-11.0); MYELOCYTES % 2 % (0-0); NEUTROPHILS % (MANUAL) 66 (42-76)
[2022-05-21] MEDS ORDERED: CT SWABBABLE VALVE TRANS SET 1 EA INFUS.SET MC ONE (15:28)
[2022-05-21] MEDS ORDERED: IV NS 0.9% 250 ML IV ONE (15:28)
[2022-05-21] MEDS ORDERED: IOHEXOL-300 100 ML VIAL IV ONE (15:28)
[2022-05-21] MEDS: TAMSULOSIN 0.4 MG CAP.SR.24H PO SCH (17:21)
[2022-05-21] MEDS: VITAMINS A AND D 56.7 GM TUBE TP SCH (17:22)
--- NOTE | 2022-05-21 19:01 | NUR ---
RN CLOSING NOTE PATIENT AWAKE IN BED RESTING, A/O X 2. NO S/S OF PAIN NOTED AT THIS TIME. ON 2L OXYGEN, NO DISTRESS OR SHORTNESS OF BREATH NOTED. IV ACCESS, LAC #18G, INTACT PATENT AND FLUSHING WELL. ALL SCHEDULE MEDICATIONS ADMINISTERED. WOUND CARE IMPLEMENTED. FALL AND SAFETY MEASURES IN PLACE, BED ALARM ON, BED IN LOW AND LOCK POSITION, CALL LIGHT AND TABLE WITHIN EASY REACH, SIDE RAILS UP X2. WILL ENDORSE TO SQUARE DANCE CALLER.
--- NOTE | 2022-05-21 19:42 | NUR ---
CHANNEL PARTNERS OPENING NOTES RECEIVED PT LYING IN BED AWAKE. A/O X2, FORGETFUL. ON O2 AT 2 LPM VIA NASAL CANULA. BREATHING EVEN AND NON-LABORED. NO C/O PAIN AT THIS TIME. BEING PREPARED FOR HEMODIALYSIS. HAS LEFT ANTECUBITAL IV ACCESS #18G AND SALINE LOCKED. NO S/S OF INFILTRATION NOTED. HAS RIGHT C/W AV CATH. WOUND DRESSING C/D/I. SAFETY PRECAUTIONS IN PLACE. WILL CONTINUE PLAN OF CARE.
[2022-05-21 20:00] VITALS: BP 110/86
--- NOTE | 2022-05-21 20:26 | NUR ---
SPONSORSHIP MANAGER NOTES CALLED [facility] (SON) AT 2002. CONSENT OBTAINED FOR CT GUIDED LIVER MASS BIOPSY, ANESTHESIA AND BLOOD TRANSFUSION. SELENA WALL WITNESSED.
--- NOTE | 2022-05-21 20:40 | NUR ---
RECORD LABEL INTERN NOTES PT BP DROPPED DURING HD. EGG BREAKING MACHINE OPERATOR NOTIFIED DR. CAMERON W/ NEW ORDER ALBUMIN 25% X2 BOTTLES FOR BP SUPPORT DURING HD PRN. NOTED AND CARRIED OUT.
[2022-05-21] MEDS: ALBUMIN 25% 25 GM in PREMIX 1 EA IV PRN ×2 (20:57→21:28)
[2022-05-21 21:06] LABS: OCCULT BLOOD STOOL NEGATIVE (NEGATIVE)
[2022-05-21] MEDS: TRAZODONE 50 MG TABLET PO SCH (21:45)
[2022-05-21] MEDS: SENNOSIDES 8.6 MG TABLET PO SCH (21:45)
[2022-05-21 22:00] VITALS: BP 108/53
[2022-05-22] VITALS: BP 113/50
[2022-05-22 04:00] VITALS: BP 120/69
--- NOTE | 2022-05-22 06:45 | NUR ---
BILINGUAL MEDICAL ASSISTANT NOTES PT REFUSED BLOOD DRAW. EXPLAINED RISKS AND BENEFITS, STILL REFUSED.
--- NOTE | 2022-05-22 07:04 | NUR ---
J2EE ANDROID DEVELOPER CLOSING NOTES PT LYING IN BED ASLEEP, EASY TO AROUSE. A/O X2, FORGETFUL. ON O2 AT 2 LPM VIA NASAL CANULA. NO SOB OR NOTED. DENIES PAIN AT THIS TIME. ON TELE MONITOR READING A-FIB JUNCTIONAL WITH PAC AND PVC AT 95 BPM. HAS LEFT ANTECUBITAL IV ACCESS #18G AND SALINE LOCKED. INTACT, PATENT AND FLUSHING. HAS RIGHT INTRAJUGULAR CATHETER, DRESSING C/D/I. BILATERAL ARMS WRAPPED W/ KERLIX. ALL NEEDS ATTENDED. SAFETY MEASURES IN PLACE: BED LOW AND LOCKED, SIDE RAILS UP X2, CALL LIGHT WITHIN REACH.
--- NOTE | 2022-05-22 07:30 | NUR ---
DIRECTOR PLANS OPENING NOTES RECEIVED PATIENT ON BED AWAKE AND A/0O X2 WITH CONFUSION. ON O2 AT 2LPM VIA NASAL CANNULA TOLERATING WELL. NO SOB NOTED. NOT IN DISTRESS. ON TELE MONITOR CURRENTLY READING CONTROLLED A-FIB WITH SOME PVCs AT 89BPM. WITH IV ACCESS AT LEFT AC G18 SALINE LOCKED, PATENT AND INTACT. WITH RIGHT CHEST WALL PERMACATH FOR HD WITH DRY AND INTACT DRESSING. SAFETY MEASURES IN PLACED. CALL LIGHT WITHIN REACH. BED ON LOWEST AND LOCKED POSITION, SIDE RAILS UP X2. WILL CONTINUE TO MONITOR.
[2022-05-22] MEDS: BICALUTAMIDE 50 MG TABLET PO SCH (10:08)
[2022-05-22] MEDS: FAMOTIDINE (20 MG) 20 MG TABLET PO SCH (10:08)
[2022-05-22] MEDS: ACIDOPHILUS/BULGARICUS 1 EACH TAB.CHEW PO SCH ×3 (10:09→17:03)
[2022-05-22] MEDS: VITAMINS A AND D 56.7 GM TUBE TP SCH ×2 (10:09→17:04)
[2022-05-22] MEDS: ALLOPURINOL 100 MG TABLET PO SCH (10:09)
[2022-05-22] MEDS ORDERED: EPOETIN ALFA-EPBX 10,000 UNIT/ML VIAL IV ONE (13:00)
[2022-05-22] MEDS: TAMSULOSIN 0.4 MG CAP.SR.24H PO SCH (17:03)
--- NOTE | 2022-05-22 18:57 | NUR ---
WET TRIMMER CLOSING NOTES PATIENT ON BED AWAKE AND A/0O X2 WITH CONFUSION. ON O2 AT 2LPM VIA NASAL CANNULA TOLERATING WELL. NO SOB NOTED. NOT IN DISTRESS. ON TELE MONITOR CURRENTLY READING CONTROLLED A-FIB WITH SOME PVCs AT 82BPM. WITH IV ACCESS AT LEFT AC G18 SALINE LOCKED, PATENT AND INTACT. WITH RIGHT CHEST WALL PERMACATH FOR HD WITH DRY AND INTACT DRESSING. DUE MEDS GIVEN. SAFETY MEASURES IN PLACED. CALL LIGHT WITHIN REACH. BED ON LOWEST AND LOCKED POSITION, SIDE RAILS UP X2. WILL ENDORSE TO NEXT SHIFT FOR LISET.
--- NOTE | 2022-05-22 19:29 | NUR ---
RN opening notes Received Pt resting in bed comfortable. Pt is alert and orientedX2. On 2 L NC. No SOB. No S/s of distress noted. RCW permacath is intact, and dry. LAC# 18 is clean, intact and SL. Tele monitor showed Afib uncontrolled hr at 107. Safety precautions is maintained. Bed at low position, brakes locked, side rails upX3, hob elevated, bed alarm is on and call light is within reach. Will continue to monitor.
[2022-05-22 20:00] VITALS: BP 126/65
[2022-05-22] MEDS: SENNOSIDES 8.6 MG TABLET PO SCH (21:17)
[2022-05-22] MEDS: TRAZODONE 50 MG TABLET PO SCH (21:18)
[2022-05-23] VITALS: BP 122/66
[2022-05-23 04:00] VITALS: BP 125/62
[2022-05-23 06:19] LABS: BASOPHILS % (AUTO) 0.3 % (0.0-2.0); EOSINOPHILS % (AUTO) 0.1 % (0.0-6.0); HEMATOCRIT 27 % (39-51); HEMOGLOBIN 8.9 g/dL (13.5-17.5); LYMPHOCYTES # (AUTO) 0.6 K/uL (0.8-4.8); LYMPHOCYTES % (AUTO) 13.9 % (20.0-44.0); MEAN CORPUSCULAR HGB CONC 33 g/dl (31.0-36.0); MEAN CORPUSCULAR VOLUME 94 fL (80-96); MONOCYTES # (AUTO) 0.5 K/uL (0.1-1.30); MONOCYTES % (AUTO) 12.3 % (2.0-12.0); NEUTROPHILS # (AUTO) 3.2 K/uL (1.8-8.9); NEUTROPHILS % (AUTO) 73.4 % (43.0-81.0); PLATELET COUNT (AUTO) 114 K/uL (150-450); RED BLOOD CELL COUNT(AUTO) 2.86 MIL/uL (4.5-6.0); WHITE BLOOD COUNT (AUTO) 4.3 K/uL (4.3-11.0)
--- NOTE | 2022-05-23 06:36 | NUR ---
RN closing notes Pt is resting in bed comfortably. Pt is alert and orientedX2. On 2 L NC. No SOB. No S/s of distress noted. Vs is stable. Routine meds were given as ordered. RCW permacath is intact, and dry. LAC# 18 is clean, intact and SL. Tele monitor showed Afib controlled afib hr at 90. Wound care provided as ordered. Kept Pt clean, dry and comfortable. Safety precautions is maintained. Bed at low position, brakes locked, side rails upX3, hob elevated, bed alarm is on and call light is within reach. Will endorse to am nurse for LISET.
[2022-05-23 06:42] LABS: CALCIUM, SERUM 7.1 mg/dL (8.5-10.1); CARBON DIOXIDE 21 mmol/L (21-32); CHLORIDE 97 mmol/L (98-107); CREATININE 6.3 mg/dL (0.6-1.3); GLUCOSE 87 mg/dL (74-106); MAGNESIUM 2.1 mg/dL (1.8-2.4); POTASSIUM 4.3 mmol/L (3.5-5.1); SODIUM SERUM 132 mmol/L (136-145); UREA NITROGEN, BLOOD 41 mg/dL (7-18)
--- NOTE | 2022-05-23 07:30 | NUR ---
SKIVER BLOCKERS OPENING NOTES RECEIVED PATIENT ON BED AWAKE AND A/O X2 WITH CONFUSION. ON O2 AT 2LPM VIA NASAL CANNULA TOLERATING WELL. NO SOB NOTED. NOT IN DISTRESS. ON TELE MONITOR CURRENTLY READING CONTROLLED A-FIB AT 90BPM. WITH IV ACCESS AT LEFT AC G18 SALINE LOCKED, PATENT AND INTACT. WITH RIGHT CHEST WALL PERMACATH FOR HD WITH DRY AND INTACT DRESSING. SAFETY MEASURES IN PLACED. CALL LIGHT WITHIN REACH. BED ON LOWEST AND LOCKED POSITION, SIDE RAILS UP X2. WILL CONTINUE TO MONITOR.
[2022-05-23 08:00] VITALS: BP 103/47
[2022-05-23] MEDS: ACIDOPHILUS/BULGARICUS 1 EACH TAB.CHEW PO SCH ×3 (08:28→17:52)
[2022-05-23] MEDS: BICALUTAMIDE 50 MG TABLET PO SCH (08:28)
[2022-05-23] MEDS: ALLOPURINOL 100 MG TABLET PO SCH (08:28)
[2022-05-23] MEDS: VITAMINS A AND D 56.7 GM TUBE TP SCH ×2 (08:28→17:52)
[2022-05-23] MEDS: ALBUMIN 25% 25 GM in PREMIX 1 EA IV PRN (10:55)
[2022-05-23 12:00] VITALS: BP 105/55
[2022-05-23 16:00] VITALS: BP 116/59
[2022-05-23] MEDS: TAMSULOSIN 0.4 MG CAP.SR.24H PO SCH (17:52)
--- NOTE | 2022-05-23 19:30 | NUR ---
MANUFACTURING PROJECT MANAGER CLOSING NOTES PATIENT ON BED AWAKE AND A/O X2 WITH CONFUSION. ON O2 AT 2LPM VIA NASAL CANNULA TOLERATING WELL. NO SOB NOTED. NOT IN DISTRESS. ON TELE MONITOR CURRENTLY READING CONTROLLED A-FIB AT 88BPM. WITH IV ACCESS AT LEFT AC G18 SALINE LOCKED, PATENT AND INTACT. WITH RIGHT CHEST WALL PERMACATH FOR HD WITH DRY AND INTACT DRESSING. S/P HEMODIALYSIS WITH 1L FULID REMOVED. DUE MEDS GIVEN. SAFETY MEASURES IN PLACED. CALL LIGHT WITHIN REACH. BED ON LOWEST AND LOCKED POSITION, SIDE RAILS UP X2. WILL ENDORSE TO NEXT SHIFT FOR LISET.
--- NOTE | 2022-05-23 19:56 | NUR ---
RN OPENING NOTE PATIENT AWAKE IN BED. A/OX2. NO S/S OF DISTRESS, BREATHING W/O DIFFICULTY ON 2L NC. LAC #18 SL INTACT AND PATENT. TELE MONITOR REVEALS CONTROLLED AFIB W/ HR 91. SAFETY MEASURES IN PLACE: BED LOCKED, AT LOWEST POSITION, RAILS UP X3, CALL BILLINGSLEY WITHIN REACH. WILL CONTINUE TO MONITOR PATIENT.
[2022-05-23 20:00] VITALS: BP 116/69
[2022-05-23] MEDS: SENNOSIDES 8.6 MG TABLET PO SCH (21:11)
[2022-05-23] MEDS: TRAZODONE 50 MG TABLET PO SCH (21:12)
[2022-05-24] VITALS: BP 105/69
[2022-05-24 04:00] VITALS: BP 101/55
--- NOTE | 2022-05-24 06:45 | NUR ---
RN CLOSING NOTE PATIENT ASLEEP IN BED. A/OX2. NO S/S OF DISTRESS, BREATHING W/O DIFFICULTY ON 2L NC. LAC #18 SL INTACT AND PATENT. TELE MONITOR REVEALS 95 W/ 1ST DEGREE BLOCK, BBB. SAFETY MEASURES IN PLACE: BED LOCKED, AT LOWEST POSITION, RAILS UP X3, CALL BILLINGSLEY WITHIN REACH. WILL ENDORSE TO NEXT SHIFT FOR LISET.
--- NOTE | 2022-05-24 07:30 | NUR ---
RN OPENING NOTES RECEIVED PATIENT IN BED, AWAKE, A/O X3, VERBALLY RESPONSIVE. NO SIGNS OF ACUTE DISTRESS NOTED. REMAINS ON O2 @ 2LPM VIA N/C, NO SOB NOTED, SATURATING @99%. NOTED WITH IV ACCESS ON LAC #18G, INTACT AND PATENT SALINE LOCKED. ALSO NOTED WITH RCW PERMACATH, WITH DRESSING C/D/I. ON TELE MONITOR SHOWING CONTROLLED AFIB, HR ON THE 90'S. SAFETY MEASURE IN PLACE. BED IN LOWEST AND LOCKED POSITION, SIDE RAILS UP X4, CALL LIGHT PLACED WITHIN EASY REACH. WILL CONTINUE TO MONITOR PATIENT.
[2022-05-24 07:51] LABS: BASOPHILS % (AUTO) 0.2 % (0.0-2.0); EOSINOPHILS % (AUTO) 0.4 % (0.0-6.0); HEMATOCRIT 26 % (39-51); HEMOGLOBIN 8.7 g/dL (13.5-17.5); LYMPHOCYTES # (AUTO) 0.5 K/uL (0.8-4.8); LYMPHOCYTES % (AUTO) 11.8 % (20.0-44.0); MEAN CORPUSCULAR HGB CONC 33 g/dl (31.0-36.0); MEAN CORPUSCULAR VOLUME 93 fL (80-96); MONOCYTES # (AUTO) 0.6 K/uL (0.1-1.30); MONOCYTES % (AUTO) 13.6 % (2.0-12.0); NEUTROPHILS # (AUTO) 3.3 K/uL (1.8-8.9); PLATELET COUNT (AUTO) 130 K/uL (150-450); RED BLOOD CELL COUNT(AUTO) 2.81 MIL/uL (4.5-6.0); WHITE BLOOD COUNT (AUTO) 4.4 K/uL (4.3-11.0)
[2022-05-24] MEDS: FAMOTIDINE (20 MG) 20 MG TABLET PO SCH (07:57)
[2022-05-24 08:04] LABS: CALCIUM, SERUM 7.5 mg/dL (8.5-10.1); CARBON DIOXIDE 24 mmol/L (21-32); CHLORIDE 100 mmol/L (98-107); CREATININE 4.4 mg/dL (0.6-1.3); GLUCOSE 90 mg/dL (74-106); PHOSPHORUS 3.3 mg/dL (2.5-4.9); POTASSIUM 3.8 mmol/L (3.5-5.1); SODIUM SERUM 135 mmol/L (136-145); UREA NITROGEN, BLOOD 25 mg/dL (7-18)
[2022-05-24] MEDS: BICALUTAMIDE 50 MG TABLET PO SCH (08:40)
[2022-05-24] MEDS: ALLOPURINOL 100 MG TABLET PO SCH (08:40)
[2022-05-24] MEDS: ACIDOPHILUS/BULGARICUS 1 EACH TAB.CHEW PO SCH ×3 (08:40→17:08)
[2022-05-24] MEDS: VITAMINS A AND D 56.7 GM TUBE TP SCH ×2 (11:42→17:08)
[2022-05-24] MEDS: TAMSULOSIN 0.4 MG CAP.SR.24H PO SCH (17:08)
--- NOTE | 2022-05-24 18:58 | NUR ---
RN CLOSING NOTES PATIENT IN BED, AWAKE. NO SIGNS OF ACUTE DISTRESS NOTED. REMAINS ON O2 @ 2LPM VIA N/C, NO SOB NOTED, SATURATING @99%. NOTED WITH IV ACCESS ON LAC #18G, INTACT AND PATENT SALINE LOCKED; RCW PERMACATH, WITH DRESSING C/D/I. ALL DUE MEDS GIVEN, TOLERATED WELL. SAFETY MEASURE IN PLACE. BED IN LOWEST AND LOCKED POSITION, SIDE RAILS UP X4, CALL LIGHT PLACED WITHIN EASY REACH. WILL ENDORSE TO NEXT SHIFT FOR CONTINUITY OF CARE.
[2022-05-24 20:00] VITALS: BP 131/66
--- NOTE | 2022-05-24 20:11 | NUR ---
RN CLOSING NOTE PATIENT AWAKE IN BED. A/OX3. NO S/S OF DISTRESS, BREATHING W/O DIFFICULTY ON 2L NC. LAC #18 SL INTACT AND PATENT. SAFETY MEASURES IN PLACE: BED LOCKED IN LOWEST POSITION, RAILS UPX2, CALL BILLINGSLEY WITHIN REACH. WILL CONTINUE TO MONITOR PATIENT.
[2022-05-24] MEDS: SENNOSIDES 8.6 MG TABLET PO SCH (21:21)
[2022-05-24] MEDS: TRAZODONE 50 MG TABLET PO SCH (21:21)
--- NOTE | 2022-05-25 06:23 | NUR ---
RN CLOSING NOTE PATIENT ASLEEP IN BED. A/OX3. NO S/S OF DISTRESS, BREATHING W/O DIFFICULTY ON 2L NC. LAC #18 SL INTACT AND PATENT. SAFETY MEASURES IN PLACE: BED LOCKED IN LOWEST POSITION, RAILS UPX2, CALL BILLINGSLEY WITHIN REACH. WILL CONTINUE TO MONITOR PATIENT.
--- NOTE | 2022-05-25 07:20 | NUR ---
RN OPENING NOTES RECEIVED PATIENT IN BED, AWAKE, A/O X3, VERBALLY RESPONSIVE. NO SIGNS OF ACUTE DISTRESS NOTED. REMAINS ON O2 @ 2LPM VIA N/C, NO SOB NOTED, SATURATING @96%. WITH IV ACCESS ON LAC #18G, INTACT AND PATENT SALINE LOCKED. ALSO NOTED WITH RCW PERMACATH, WITH DRESSING C/D/I. SAFETY MEASURE IN PLACE. BED IN LOWEST AND LOCKED POSITION, SIDE RAILS UP X4, CALL LIGHT PLACED WITHIN EASY REACH. WILL CONTINUE TO MONITOR PATIENT.
[2022-05-25 07:24] LABS: BASOPHILS % (AUTO) 0.3 % (0.0-2.0); EOSINOPHILS % (AUTO) 0.1 % (0.0-6.0); HEMATOCRIT 28 % (39-51); HEMOGLOBIN 9.6 g/dL (13.5-17.5); LYMPHOCYTES # (AUTO) 0.4 K/uL (0.8-4.8); LYMPHOCYTES % (AUTO) 8.8 % (20.0-44.0); MEAN CORPUSCULAR HGB CONC 34 g/dl (31.0-36.0); MEAN CORPUSCULAR VOLUME 93 fL (80-96); MONOCYTES # (AUTO) 0.6 K/uL (0.1-1.30); MONOCYTES % (AUTO) 11.9 % (2.0-12.0); NEUTROPHILS % (AUTO) 78.9 % (43.0-81.0); PLATELET COUNT (AUTO) 153 K/uL (150-450); RED BLOOD CELL COUNT(AUTO) 3.07 MIL/uL (4.5-6.0); WHITE BLOOD COUNT (AUTO) 5.1 K/uL (4.3-11.0)
[2022-05-25 07:31] LABS: CALCIUM, SERUM 7.7 mg/dL (8.5-10.1); CARBON DIOXIDE 22 mmol/L (21-32); CHLORIDE 98 mmol/L (98-107); GLUCOSE 98 mg/dL (74-106); PHOSPHORUS 3.6 mg/dL (2.5-4.9); POTASSIUM 4.4 mmol/L (3.5-5.1); SODIUM SERUM 135 mmol/L (136-145); UREA NITROGEN, BLOOD 41 mg/dL (7-18)
[2022-05-25 08:00] VITALS: BP 126/46
[2022-05-25] MEDS: ALLOPURINOL 100 MG TABLET PO SCH (08:42)
[2022-05-25] MEDS: BICALUTAMIDE 50 MG TABLET PO SCH (08:42)
[2022-05-25] MEDS: ACIDOPHILUS/BULGARICUS 1 EACH TAB.CHEW PO SCH ×3 (08:42→17:05)
[2022-05-25] MEDS: FAMOTIDINE (20 MG) 20 MG TABLET PO SCH (08:42)
[2022-05-25] MEDS: VITAMINS A AND D 56.7 GM TUBE TP SCH ×2 (08:47→17:06)
[2022-05-25] MEDS: CARVEDILOL 3.125 MG TABLET PO SCH ×2 (09:43→17:06)
[2022-05-25 11:07] LABS: IMMUNOGLOBULIN A, SERUM 142 mg/dL (61-437); IMMUNOGLOBULIN G, SERUM 609 mg/dL (603-1613); IMMUNOGLOBULIN M, SERUM 70 mg/dL (15-143)
--- NOTE | 2022-05-25 11:30 | NUR ---
RN NOTES PATIENT REFUSED HEMODIALYSIS TODAY.
[2022-05-25 13:18] LABS: BAND % (MANUAL) 8 % (0.0-5.0); LYMPHOCYTES % (MANUAL) 11 % (16-48); METAMYELOCYTES % 4 % (0-0); MONOCYTES % (MANUAL) 1 % (0-11.0); MYELOCYTES % 5 % (0-0); NEUTROPHILS % (MANUAL) 59 (42-76)
[2022-05-25 16:00] VITALS: BP 117/56
[2022-05-25] MEDS: TAMSULOSIN 0.4 MG CAP.SR.24H PO SCH (17:05)
--- NOTE | 2022-05-25 19:00 | NUR ---
RN CLOSING NOTES PATIENT IN BED, AWAKE. NO SIGNS OF ACUTE DISTRESS NOTED. REMAINS ON O2 @ 2LPM VIA N/C, NO SOB NOTED, SATURATING @97%. NOTED WITH IV ACCESS ON LAC #18G, INTACT AND PATENT SALINE LOCKED; RCW PERMACATH, WITH DRESSING C/D/I. ALL DUE MEDS GIVEN, TOLERATED WELL. SAFETY MEASURE IN PLACE. BED IN LOWEST AND LOCKED POSITION, SIDE RAILS UP X4, CALL LIGHT PLACED WITHIN EASY REACH. WILL ENDORSE TO NEXT SHIFT FOR CONTINUITY OF CARE.
--- NOTE | 2022-05-25 19:31 | NUR ---
MS RN OPENING NOTE RECEIVED PATIENT AWAKE IN BED.A/O X2-3 AND ABLE TO MAKE NEEDS KNOWN. ON O2 @ 2LPM VIA NC, TOLERATING WELL. NO SOB OR S/S OF RESPIRATORY DISTRESS NOTED. BREATHING EVEN AND UNLABORED. IV ACCESS LAC #18G, INTACT AND PATENT SALINE LOCKED; RCW PERMACATH, WITH DRESSING C/D/I. SAFETY PRECAUTIONS IN PLACE. BED IN LOWEST LOCKED POSITION, HOB ELEVATED, SIDE RAILS UP X4, AND CALL LIGHT AND TABLE WITHIN REACH. ALL NEEDS MET AT THIS TIME.
[2022-05-25 20:00] VITALS: BP 101/56
[2022-05-25 21:20] LABS: ABG OXYGEN SATURATION 93.9 % (92.0-98.5); ABG PCO2 28.7 mmHg (35.0-45.0); ABG PH 7.425 (7.350-7.450); ABG PO2 72.4 mmHg (75.0-100.0); AaDO2 93.4 mmHg; COHb 0.2 % (0.5-1.5); MetHb 0.2 % (0.0-1.5); O2Hb 93.5 % (94.0-97.0); SITE, ABG Right Radial; VENT MODE, BG 2L NASAL CANNULA
[2022-05-25] MEDS: SENNOSIDES 8.6 MG TABLET PO SCH (21:40)
[2022-05-25] MEDS: TRAZODONE 50 MG TABLET PO SCH (21:40)
--- NOTE | 2022-05-26 06:52 | NUR ---
MS RN CLOSING NOTE PATIENT AWAKE IN BED.A/O X2-3 AND ABLE TO MAKE NEEDS KNOWN. ON O2 @ 2LPM VIA NC, TOLERATING WELL, SATURATING 96%. NO S/S OF RESPIRATORY DISTRESS NOTED. IV ACCESS LAC #18G, INTACT AND PATENT SALINE LOCKED; RCW PERMACATH, WITH DRESSING C/D/I. ALL DUE MEDS GIVEN ORDERED. SAFETY PRECAUTIONS IN PLACE AT ALL TIMES. BED IN LOWEST LOCKED POSITION, HOB ELEVATED, SIDE RAILS UP X4, AND CALL LIGHT AND TABLE WITHIN REACH. ALL NEEDS MET AT THIS TIME AND WILL ENDORSE TO ONCOMING NURSE FOR LISET.
--- NOTE | 2022-05-26 06:53 | NUR ---
MRI APPROVED, TECH NOTIFIED
--- NOTE | 2022-05-26 07:05 | NUR ---
MS RN OPENING NOTES RECEIVED PATIENT AWAKE IN BED RESTING, AWAKE AND RESPONSIVE TO NAME. A/O x2-3, INCONTINENT. ON 2L OF OXYGEN VIA NC, NO S/S OF RESPIRATOR DISTRESS OR SOB NOTED. NO PAIN OR DISCOMFORT NOTED. IV ACCESS L AC #18 G. INTACT AND PATENT, NO S/S OF INFILTRATION. R CHEST WALL PERMA CATH PRESENT. PATIENT HAS SKIN: BUE SKIN TEARS, SACRAL DTI, HIP AND BACK BRUISES. PATIENT IS NPO EXCEPT MEDICATION AT THIS TIME FOR MRI WITH CONTRAST. WILL CONTINUE TO MONITOR AND ASSESS. SAFETY MEASURES IN PLACE: BED IN LOWEST POSITION LOCKED POSITION, SIDE RAILS UP x2, CALL LIGHT WITHIN REACH.
[2022-05-26 08:06] LABS: *SPE A/G RATIO 0.8 (0.7-1.7); *SPE ALPHA-1-GLOBULIN 0.4 g/dL (0.0-0.4); *SPE ALPHA-2-GLOBULIN 1.3 g/dL (0.4-1.0); *SPE BETA GLOBULIN 0.7 g/dL (0.7-1.3); *SPE M-SPIKE Not Observed g/dL (Not Observed)
[2022-05-26 08:57] LABS: CALCIUM, SERUM 7.1 mg/dL (8.5-10.1); CARBON DIOXIDE 22 mmol/L (21-32); CHLORIDE 97 mmol/L (98-107); GLUCOSE 87 mg/dL (74-106); MAGNESIUM 2.1 mg/dL (1.8-2.4); PHOSPHORUS 4.3 mg/dL (2.5-4.9); POTASSIUM 5.3 mmol/L (3.5-5.1); SODIUM SERUM 135 mmol/L (136-145); UREA NITROGEN, BLOOD 57 mg/dL (7-18)
[2022-05-26] MEDS: CARVEDILOL 3.125 MG TABLET PO SCH ×2 (09:00→17:04)
--- NOTE | 2022-05-26 09:00 | NUR ---
RN NOTES PATIENT ABOUT TO BEGIN HEMODIALYSIS, HOLDING CARVEDILOL PER DIALYSIS NURSE. Addendum: 05/26/22 at 0906 by ELI JOLLEY RN ADDENDUM: BP 115/67, PULSE 82
[2022-05-26] MEDS: ALLOPURINOL 100 MG TABLET PO SCH (09:02)
[2022-05-26] MEDS: BICALUTAMIDE 50 MG TABLET PO SCH (09:02)
[2022-05-26] MEDS: ACIDOPHILUS/BULGARICUS 1 EACH TAB.CHEW PO SCH ×3 (09:02→17:04)
[2022-05-26] MEDS: VITAMINS A AND D 56.7 GM TUBE TP SCH ×2 (09:09→17:04)
[2022-05-26 09:11] LABS: CREATININE 7.7 mg/dL (0.6-1.3)
--- NOTE | 2022-05-26 09:20 | NUR ---
RN NOTES RECEIVED CRITICAL LAB CREATININE 7.[address] DAKOTAH VILLARREAL NOTIFIED, PATIENT ON DIALYSIS RIGHT NOW.
[2022-05-26] MEDS: ALBUMIN 25% 25 GM in PREMIX 1 EA IV PRN (09:45)
--- NOTE | 2022-05-26 09:46 | NUR ---
RN NOTES ADMINISTERED ALBUMIN 25% BP IS 77/56 PER HD NURSE. WILL CONTINUE TO MONITOR PATIENT.
[2022-05-26 09:52] VITALS: BP 115/67
[2022-05-26 10:08] LABS: IMMUNOGLOBULIN A, SERUM 164 mg/dL (61-437); IMMUNOGLOBULIN G, SERUM 718 mg/dL (603-1613); IMMUNOGLOBULIN M, SERUM 76 mg/dL (15-143)
[2022-05-26 11:07] LABS: *SPE A/G RATIO 0.9 (0.7-1.7); *SPE ALPHA-1-GLOBULIN 0.5 g/dL (0.0-0.4); *SPE ALPHA-2-GLOBULIN 1.4 g/dL (0.4-1.0); *SPE BETA GLOBULIN 0.8 g/dL (0.7-1.3); *SPE M-SPIKE Not Observed g/dL (Not Observed)
--- NOTE | 2022-05-26 11:48 | NUR ---
RN NOTES HEMODIALYSIS COMPLETED, 800 ML OUTPUT, R CHEST WALL PERMACATH DRESSING DRY AND INTACT, NO S/S OF BLEEDING. WILL CONTINUE TO MONITOR.
[2022-05-26] MEDS ORDERED: EPOETIN ALFA (10,000 UNIT) 10,000 UNIT/ML VIAL IV ONE (12:00)
[2022-05-26 12:07] LABS: BASOPHILS % (AUTO) 0.2 % (0.0-2.0); EOSINOPHILS % (AUTO) 0.1 % (0.0-6.0); HEMATOCRIT 28 % (39-51); HEMOGLOBIN 9.2 g/dL (13.5-17.5); LYMPHOCYTES # (AUTO) 0.6 K/uL (0.8-4.8); LYMPHOCYTES % (AUTO) 10.6 % (20.0-44.0); MEAN CORPUSCULAR HGB CONC 33 g/dl (31.0-36.0); MEAN CORPUSCULAR VOLUME 93 fL (80-96); MONOCYTES # (AUTO) 0.8 K/uL (0.1-1.30); MONOCYTES % (AUTO) 12.8 % (2.0-12.0); NEUTROPHILS # (AUTO) 4.6 K/uL (1.8-8.9); NEUTROPHILS % (AUTO) 76.3 % (43.0-81.0); PLATELET COUNT (AUTO) 153 K/uL (150-450)
[2022-05-26 12:17] LABS: BAND % (MANUAL) 14 % (0.0-5.0); EOSINOPHILS % (MANUAL) 0 % (0-4); LYMPHOCYTES % (MANUAL) 20 % (16-48); METAMYELOCYTES % 1 % (0-0); MONOCYTES % (MANUAL) 8 % (0-11.0); MYELOCYTES % 1 % (0-0); NEUTROPHILS % (MANUAL) 56 (42-76)
--- NOTE | 2022-05-26 12:30 | NUR ---
RN NOTES PATIENT WAS PICKED UP BY TRANSPORT FOR MRI OF ABDOMEN
--- NOTE | 2022-05-26 13:59 | NUR ---
RN NOTES PATIENT RETURNED FROM MRI, STABLE, NO S/S OF PAIN OR DISTRESS.
[2022-05-26 15:54] VITALS: BP 113/56
[2022-05-26] MEDS: TAMSULOSIN 0.4 MG CAP.SR.24H PO SCH (17:04)
--- NOTE | 2022-05-26 18:34 | NUR ---
MS RN CLOSING NOTES PATIENT AWAKE IN BED RESTING, AWAKE AND RESPONSIVE TO NAME. A/O x2-3, INCONTINENT. STABLE 2L OF OXYGEN VIA NC, NO S/S OF RESPIRATOR DISTRESS OR SOB NOTED. NO PAIN OR DISCOMFORT NOTED. IV ACCESS L AC #18 G. INTACT AND PATENT, NO S/S OF INFILTRATION. R CHEST WALL PERMA CATH PRESENT. DRESSING INTACT NO S/S OF BLEEDING. HEMODIALYSIS DONE TODAY 800 ML OUTPUT NOTED BY HD NURSE. PATIENT HAS SKIN ISSUES: BUE SKIN TEARS, SACRAL DTI, HIP AND BACK BRUISES. WILL CONTINUE TO MONITOR AND ASSESS. ALL PRESCRIBED MEDICATION ADMINISTERED. SAFETY MEASURES MAINTAINED: BED IN LOWEST POSITION LOCKED POSITION, SIDE RAILS UP x2, CALL LIGHT WITHIN REACH. WILL ENDORSE TO NEXT SHIFT ANY LISET.
--- NOTE | 2022-05-26 19:10 | NUR ---
RN NOTES: -RECEIVED LYING COMFORTABLY IN BED, A/OX2-3, INCONTINENT B/B, LAC G#18 INTACT, PERMCATH ON THE RCW, DRESSING INTACT, HE HAD HEMODIALYSIS TODAY OUTPUT-[phone] AND SCHEDULE AT 0700 TOMORROW MORNING, ON O2 AT 2L/MIN VIA NC FOR O2 TITRATION , NO SOB, NON LABORED BREATHING, KEPT ON CLOSE WATCH.ORIENTED TO UNIT AND STAFF. -FALL,SAFETY AND ASPIRATION PRECAUTION OBSERVED.
[2022-05-26 20:00] VITALS: BP 117/57
[2022-05-26] MEDS: SENNOSIDES 8.6 MG TABLET PO SCH (21:26)
[2022-05-26] MEDS: TRAZODONE 50 MG TABLET PO SCH (21:26)
--- NOTE | 2022-05-27 07:54 | NUR ---
RN NOTES: TURNING AND REPOSITIONING DONE, FOR DIALYSIS THIS MORNING, NO LABS, CT GUIDED LIVER BIOPSY STILL PENDING, TO F/U X-RAY , ENCOURAGE TO OFFER IN BETWEEN SNACKS AND DRINKS, CALLS AND NEEDS ATTENDED.ENDORSED FOR CONTINUITY OF CARE.
[2022-05-27 08:00] VITALS: BP 108/59
[2022-05-27 09:10] LABS: BASOPHILS % (AUTO) 0.4 % (0.0-2.0); EOSINOPHILS % (AUTO) 0.2 % (0.0-6.0); HEMATOCRIT 30 % (39-51); HEMOGLOBIN 9.4 g/dL (13.5-17.5); LYMPHOCYTES # (AUTO) 0.7 K/uL (0.8-4.8); LYMPHOCYTES % (AUTO) 10.6 % (20.0-44.0); MEAN CORPUSCULAR HGB CONC 32 g/dl (31.0-36.0); MEAN CORPUSCULAR VOLUME 97 fL (80-96); MONOCYTES # (AUTO) 0.8 K/uL (0.1-1.30); MONOCYTES % (AUTO) 13.4 % (2.0-12.0); NEUTROPHILS # (AUTO) 4.7 K/uL (1.8-8.9); NEUTROPHILS % (AUTO) 75.4 % (43.0-81.0); PLATELET COUNT (AUTO) 136 K/uL (150-450); RED BLOOD CELL COUNT(AUTO) 3.04 MIL/uL (4.5-6.0); WHITE BLOOD COUNT (AUTO) 6.2 K/uL (4.3-11.0)
[2022-05-27 09:28] LABS: ALANINE AMINOTRANSFERASE 15 U/L (12-78); ALBUMIN 2.9 g/dL (3.4-5.0); ASPARTATE AMINOTRANSFERASE 170 U/L (15-37); BILIRUBIN,TOTAL 0.8 mg/dL (0.2-1.0); CALCIUM, SERUM 7.2 mg/dL (8.5-10.1); CARBON DIOXIDE 23 mmol/L (21-32); CREATININE 5.8 mg/dL (0.6-1.3); GLUCOSE 83 mg/dL (74-106); UREA NITROGEN, BLOOD 45 mg/dL (7-18)
[2022-05-27] MEDS: FAMOTIDINE (20 MG) 20 MG TABLET PO SCH (09:43)
[2022-05-27] MEDS: BICALUTAMIDE 50 MG TABLET PO SCH (09:43)
[2022-05-27] MEDS: ACIDOPHILUS/BULGARICUS 1 EACH TAB.CHEW PO SCH ×3 (09:44→17:59)
[2022-05-27] MEDS: CARVEDILOL 3.125 MG TABLET PO SCH ×2 (09:44→17:59)
[2022-05-27] MEDS: ALLOPURINOL 100 MG TABLET PO SCH (09:44)
[2022-05-27 09:51] LABS: CHLORIDE 105 mmol/L (98-107); POTASSIUM 4.7 mmol/L (3.5-5.1); SODIUM SERUM 143 mmol/L (136-145)
[2022-05-27 11:21] LABS: BAND % (MANUAL) 5 % (0.0-5.0); LYMPHOCYTES % (MANUAL) 16 % (16-48); METAMYELOCYTES % 5 % (0-0); MONOCYTES % (MANUAL) 11 % (0-11.0); MYELOCYTES % 5 % (0-0); NEUTROPHILS % (MANUAL) 58 (42-76)
[2022-05-27 12:04] LABS: ALKALINE PHOSPHATASE 5653 U/L (46-116)
[2022-05-27] MEDS: VITAMINS A AND D 56.7 GM TUBE TP SCH ×2 (14:07→18:04)
[2022-05-27 16:00] VITALS: BP 133/60
--- NOTE | 2022-05-27 16:43 | NUR ---
PAVITHRA,'S BENCH ASSEMBLER ELECTRICAL IN,DR. SWAN IN,FAMILY IN.SON STATES HE SPOKE WITH MED. WOOD TODAY AND TRYING TO CONVINCE DAD TO HAVE COLONOSCOPY.HEMODIALYSIS COMPLETED BP LOW FOLLOWING DIALYSIS.
[2022-05-27] MEDS: TAMSULOSIN 0.4 MG CAP.SR.24H PO SCH (18:10)
--- NOTE | 2022-05-27 19:30 | NUR ---
MS RN OPENING NOTE RECEIVED PT AWAKE IN BED. A/O X1-2 AND ABLE TO MAKE NEEDS KNOWN. PT ON O2 2LPM VIA NC, SATURATING @ 98%. NO SOB OR S/S OF RESPIRATORY DISTRESS. IV ACCESS LAC 18 GAUGE, INTACT AND PATENT. SAFETY PRECAUTIONS IN PLACE. BED IN LOWEST LOCKED POSITION, HOB ELEVATED, SIDE RAILS UP X3, AND CALL LIGHT AND TABLE WITHIN REACH. ALL NEEDS MET AT THIS TIME.
[2022-05-27] MEDS: TRAZODONE 50 MG TABLET PO SCH (21:57)
[2022-05-27] MEDS: SENNOSIDES 8.6 MG TABLET PO SCH (21:57)
--- NOTE | 2022-05-28 06:46 | NUR ---
MS RN CLOSING NOTE PT AWAKE IN BED. A/O X1-2 AND ABLE TO MAKE NEEDS KNOWN. PT ON O2 2LPM VIA NC, SATURATING @ 98%. NO SOB OR S/S OF RESPIRATORY DISTRESS. IV ACCESS LAC 18 GAUGE, INTACT AND PATENT. ALL DUE MEDS GIVEN ORDERED. TURNED AND REPOSITIONED Q2H. SAFETY PRECAUTIONS IN PLACE AT ALL TIMES. BED IN LOWEST LOCKED POSITION, HOB ELEVATED, SIDE RAILS UP X3, AND CALL LIGHT AND TABLE WITHIN REACH. ALL NEEDS MET AT THIS TIME AND WILL ENDORSE TO ONCOMING NURSE FOR LISET.
[2022-05-28 07:11] LABS: HEMATOCRIT 31 % (39-51); HEMOGLOBIN 9.7 g/dL (13.5-17.5); MEAN CORPUSCULAR HGB CONC 32 g/dl (31.0-36.0); MEAN CORPUSCULAR VOLUME 97 fL (80-96); PLATELET COUNT (AUTO) 146 K/uL (150-450); RED BLOOD CELL COUNT(AUTO) 3.17 MIL/uL (4.5-6.0); WHITE BLOOD COUNT (AUTO) 9.4 K/uL (4.3-11.0)
--- NOTE | 2022-05-28 07:27 | NUR ---
MS RN OPENING NOTE RECEIVED PT IN BED ASLEEP, EASILY AROUSED. A/O X1-2, REORIENTED PT NEEDED. ON O2 AT 2L/MIN VIA NASAL CANNULA, TOLERATING WELL. BREATHING EVEN AND UNLABORED. NOT IN ANY SIGN OF RESPIRATORY DISTRESS. IV ACCESS IN LAC G#18 INTACT AND PATENT. R CHEST WALL PERMACATH INTACT. SAFETY MEASURES IN PLACE: BED IN LOWEST AND LOCKED POSITION, SIDE RAILS UP X2, AND CALL LIGHT WITHIN REACH. WILL CONTINUE TO MONITOR PT.
[2022-05-28 07:31] LABS: ALANINE AMINOTRANSFERASE 19 U/L (12-78); ALBUMIN 2.7 g/dL (3.4-5.0); ALKALINE PHOSPHATASE 665 U/L (46-116); ASPARTATE AMINOTRANSFERASE 191 U/L (15-37); CALCIUM, SERUM 7.7 mg/dL (8.5-10.1); CARBON DIOXIDE 16 mmol/L (21-32); CHLORIDE 100 mmol/L (98-107); CREATININE 4.6 mg/dL (0.6-1.3); GLUCOSE 68 mg/dL (74-106); POTASSIUM 5.4 mmol/L (3.5-5.1); SODIUM SERUM 134 mmol/L (136-145); TOTAL PROTEIN, SERUM 6.6 g/dL (6.4-8.2); UREA NITROGEN, BLOOD 40 mg/dL (7-18)
[2022-05-28 08:00] VITALS: BP 108/54
[2022-05-28] MEDS: CARVEDILOL 3.125 MG TABLET PO SCH ×2 (08:55→17:00)
[2022-05-28] MEDS: BICALUTAMIDE 50 MG TABLET PO SCH (08:55)
[2022-05-28] MEDS: ALLOPURINOL 100 MG TABLET PO SCH (08:55)
[2022-05-28] MEDS: ACIDOPHILUS/BULGARICUS 1 EACH TAB.CHEW PO SCH ×3 (08:55→17:00)
[2022-05-28] MEDS: VITAMINS A AND D 56.7 GM TUBE TP SCH ×2 (08:58→17:28)
--- NOTE | 2022-05-28 11:20 | NUR ---
RN NOTE PT'S BP WAS 89/65 PRIOR TO STARTING HD. ALBUMIN WAS GIVEN BY HD NURSE ORDERED FOR HD.
[2022-05-28] MEDS: ALBUMIN 25% 25 GM in PREMIX 1 EA IV PRN (11:22)
--- NOTE | 2022-05-28 11:30 | NUR ---
RN NOTE REASSESSED BP AFTER ALBUMIN ADMINISTERED BY HD NURSE AND IS NOW 92/68. HD NURSE ALSO CHANGED THE BATH FROM 3K TO 2K. AWARE. HEMODIALYSIS STARTED. WILL CONTINUE TO MONITOR PT. Addendum: 05/28/22 at 1256 by ELVI DAVE RN ADDENDUM: BATH WAS CHANGED FROM 3K TO 2K BY HD NURSE DUE TO HIGH POTASSIUM LEVEL.
[2022-05-28] MEDS ORDERED: CARV3.122 PO (11:33)
[2022-05-28 12:52] LABS: BAND % (MANUAL) 12 % (0.0-5.0); LYMPHOCYTES % (MANUAL) 15 % (16-48); METAMYELOCYTES % 2 % (0-0); MONOCYTES % (MANUAL) 6 % (0-11.0); MYELOCYTES % 3 % (0-0); NEUTROPHILS % (MANUAL) 62 (42-76)
--- NOTE | 2022-05-28 13:50 | NUR ---
RN NOTE HEMODIALYSIS ENDED WITH 800ML OUT. PT'S VITAL SIGNS, BP 94/60, R 18, TEMP 97.8, P 95, SPO2 95%.
[2022-05-28 16:00] VITALS: BP 102/64
[2022-05-28] MEDS: TAMSULOSIN 0.4 MG CAP.SR.24H PO SCH (17:26)
--- NOTE | 2022-05-28 18:35 | NUR ---
MS RN CLOSING NOTE PT IN BED ASLEEP, EASILY AROUSED. A/O X1-2, REORIENTED PT NEEDED. ON O2 AT 2L/MIN VIA NASAL CANNULA, TOLERATING WELL. NOT IN ANY SIGN OF RESPIRATORY DISTRESS. IV ACCESS IN LAC G#18 INTACT AND PATENT. R CHEST WALL PERMACATH INTACT. ALL NEEDS ATTENDED. KEPT CLEAN AND COMFORTABLE. TURNED AND REPOSITIONED Q2HRS AND NEEDED. SAFETY MEASURES IN PLACE: BED IN LOWEST AND LOCKED POSITION, SIDE RAILS UP X2, AND CALL LIGHT WITHIN REACH. WILL ENDORSE TO MOVE COORDINATOR NURSE FOR LISET.
--- NOTE | 2022-05-28 19:30 | NUR ---
RN OPENING NOTES RECEIVED PT IN BED, ASLEEP, AWAKENS TO VERBAL STIMULI. AOx2. ON NC 2LPM AND TOLERATING WELL. NO SOB NOTED. NO S/SX OF RESPIRATORY DISTRESS NOTED. IV ACCESS IN LAC #18G AND RCW PERMACATH. IV IS INTACT, PATENT, AND FLUSHING WELL. SAFETY PRECAUTIONS IN PLACE: BED IN LOWEST, LOCKED POSITION, SIDERAILS UPx2, AND BRAKES ON. TABLE AND CALL LIGHT WITHIN REACH. WILL CONTINUE TO MONITOR.
[2022-05-28 20:00] VITALS: BP 93/48
[2022-05-28] MEDS: SENNOSIDES 8.6 MG TABLET PO SCH (21:52)
[2022-05-28] MEDS: TRAZODONE 50 MG TABLET PO SCH (21:52)
[2022-05-29 06:17] LABS: BASOPHILS % (AUTO) 0.1 % (0.0-2.0); HEMATOCRIT 28 % (39-51); LYMPHOCYTES # (AUTO) 0.6 K/uL (0.8-4.8); LYMPHOCYTES % (AUTO) 8.8 % (20.0-44.0); MEAN CORPUSCULAR HGB CONC 32 g/dl (31.0-36.0); MEAN CORPUSCULAR VOLUME 95 fL (80-96); MONOCYTES # (AUTO) 0.7 K/uL (0.1-1.30); MONOCYTES % (AUTO) 10.8 % (2.0-12.0); NEUTROPHILS # (AUTO) 5.4 K/uL (1.8-8.9); NEUTROPHILS % (AUTO) 80.3 % (43.0-81.0); PLATELET COUNT (AUTO) 110 K/uL (150-450); RED BLOOD CELL COUNT(AUTO) 2.94 MIL/uL (4.5-6.0); WHITE BLOOD COUNT (AUTO) 6.8 K/uL (4.3-11.0)
--- NOTE | 2022-05-29 06:49 | NUR ---
RN CLOSING NOTES PT IN BED, ASLEEP ON SIDE, AWAKENS TO VERBAL STIMULI. AOx2. ON NC 2LPM AND TOLERATING WELL. NO SOB NOTED. NO S/SX OF RESPIRATORY DISTRESS NOTED. IV ACCESS IN LAC #18G AND RCW PERMACATH. IV IS INTACT, PATENT, AND FLUSHING WELL. ALL ORDERS CARRIED OUT. ALL NEEDS MET. PT KEPT CLEAN AND DRY. SAFETY PRECAUTIONS IN PLACE: BED IN LOWEST, LOCKED POSITION, SIDERAILS UPx2, AND BRAKES ON. TABLE AND CALL LIGHT WITHIN REACH. WILL ENDORSE TO ONCOMING SHIFT FOR LISET.
[2022-05-29] MEDS: FAMOTIDINE (20 MG) 20 MG TABLET PO SCH (07:29)
[2022-05-29 07:38] LABS: ALANINE AMINOTRANSFERASE 13 U/L (12-78); ALBUMIN 2.7 g/dL (3.4-5.0); ASPARTATE AMINOTRANSFERASE 181 U/L (15-37); BILIRUBIN,TOTAL 0.9 mg/dL (0.2-1.0); CARBON DIOXIDE 27 mmol/L (21-32); CREATININE 4.2 mg/dL (0.6-1.3); GLUCOSE 88 mg/dL (74-106); TOTAL PROTEIN, SERUM 6.3 g/dL (6.4-8.2); UREA NITROGEN, BLOOD 37 mg/dL (7-18)
[2022-05-29 08:00] VITALS: BP 94/50
[2022-05-29 08:00] LABS: CHLORIDE 99 mmol/L (98-107); POTASSIUM 3.9 mmol/L (3.5-5.1); SODIUM SERUM 138 mmol/L (136-145)
[2022-05-29 08:07] LABS: ALKALINE PHOSPHATASE 5433 U/L (46-116)
[2022-05-29] MEDS: ACIDOPHILUS/BULGARICUS 1 EACH TAB.CHEW PO SCH ×3 (09:00→17:00)
[2022-05-29] MEDS: BICALUTAMIDE 50 MG TABLET PO SCH (09:00)
[2022-05-29] MEDS: ALLOPURINOL 100 MG TABLET PO SCH (09:00)
[2022-05-29] MEDS: CARVEDILOL 3.125 MG TABLET PO SCH ×2 (09:00→17:00)
[2022-05-29] MEDS: VITAMINS A AND D 56.7 GM TUBE TP SCH ×2 (10:05→17:16)
[2022-05-29 16:00] VITALS: BP 100/50
[2022-05-29] MEDS: TAMSULOSIN 0.4 MG CAP.SR.24H PO SCH (17:16)
--- NOTE | 2022-05-29 17:36 | NUR ---
RN NOTE RECEIVED AN ORDER FROM DR. MARTINEZ FOR A ULTRASOUND GUIDED THORACENTESIS PROCEDURE TOMORROW 05/30/22. CONSENT FOR THE PROCEDURE OBTAINED FROM SON LAXMI HONEYCUTT VIA TELEPHONE WITH JAYLYN BA A WITNESS.
--- NOTE | 2022-05-29 18:49 | NUR ---
MS RN CLOSING NOTE PT IN BED ASLEEP, EASILY AROUSED. A/O X1-2, REORIENTED PT NEEDED. ON O2 AT 2L/MIN VIA NASAL CANNULA, TOLERATING WELL WITH SPO2 97%. NO SOB NOTED. NOT IN ANY SIGN OF RESPIRATORY DISTRESS. IV ACCESS IN LAC G#18 INTACT AND PATENT. R CHEST WALL PERMACATH INTACT. ALL NEEDS ATTENDED. KEPT CLEAN AND COMFORTABLE. TURNED AND REPOSITIONED Q2HRS AND NEEDED. SAFETY MEASURES IN PLACE: BED IN LOWEST AND LOCKED POSITION, SIDE RAILS UP X2, AND CALL LIGHT WITHIN REACH. WILL ENDORSE TO OIL SEAL ASSEMBLER NURSE FOR LISET.
--- NOTE | 2022-05-29 19:43 | NUR ---
MS RN OPENING NOTES RECEIVED PATIENT RESTING IN BED COMFORTABLY, A/OX2; BREATHING EVEN AND UNLABORED; TOLERATING 2LPM VIA NC WELL; NO SOB NOTED; NO DISTRESS NOTED; PATIENT TO BE NPO EXCEPT MEDS FOR PROCEDURE IN AM; LAC #18 INTACT AND PATENT, FLUSHING WELL; NO S/S OF REDNESS OR INFILTRATION NOTED; RCW PERMACATH PRESENT; SAFETY PRECAUTIONS IMPLEMENTED; BED LOCKED IN LOW POSITION; SIDE RAILSX2; CALL LIGHT WITHIN REACH, WILL CONT PLAN OF CARE
[2022-05-29 20:00] VITALS: BP 141/68
[2022-05-29] MEDS: SENNOSIDES 8.6 MG TABLET PO SCH (21:23)
[2022-05-29] MEDS: TRAZODONE 50 MG TABLET PO SCH (21:24)
--- NOTE | 2022-05-29 21:24 | NUR ---
MS RN NOTES PARTIAL DOSE WASTE RECORDED AND WITNESSED BY JAYLYN JUAREZ FOR TRAZODONE.
--- NOTE | 2022-05-30 06:52 | NUR ---
MS RN CLOSING NOTES PATIENT RESTING IN BED COMFORTABLY, A/OX2; BREATHING EVEN AND UNLABORED; TOLERATING 2LPM VIA NC WELL; NO SOB NOTED; NO DISTRESS NOTED; PATIENT STILL NPO EXCEPT MEDS FOR PROCEDURE IN AM; LAC #18 INTACT AND PATENT, FLUSHING WELL; NO S/S OF REDNESS OR INFILTRATION NOTED; RCW PERMACATH PRESENT; ALL NEEDS RENDERED; SAFETY PRECAUTIONS IMPLEMENTED; BED LOCKED IN LOW POSITION; SIDE RAILSX2; CALL LIGHT WITHIN REACH, WILL ENDORSE LISET TO ONCOMING SHIFT
[2022-05-30 07:07] LABS: BASOPHILS % (AUTO) 0.2 % (0.0-2.0); EOSINOPHILS % (AUTO) 0.1 % (0.0-6.0); HEMATOCRIT 27 % (39-51); HEMOGLOBIN 8.8 g/dL (13.5-17.5); LYMPHOCYTES # (AUTO) 0.6 K/uL (0.8-4.8); LYMPHOCYTES % (AUTO) 10.7 % (20.0-44.0); MEAN CORPUSCULAR HGB CONC 32 g/dl (31.0-36.0); MEAN CORPUSCULAR VOLUME 95 fL (80-96); MONOCYTES # (AUTO) 0.6 K/uL (0.1-1.30); MONOCYTES % (AUTO) 10.6 % (2.0-12.0); NEUTROPHILS # (AUTO) 4.3 K/uL (1.8-8.9); NEUTROPHILS % (AUTO) 78.4 % (43.0-81.0); PLATELET COUNT (AUTO) 102 K/uL (150-450); RED BLOOD CELL COUNT(AUTO) 2.89 MIL/uL (4.5-6.0); WHITE BLOOD COUNT (AUTO) 5.5 K/uL (4.3-11.0)
--- NOTE | 2022-05-30 07:30 | NUR ---
MS RN OPENING NOTES RECEIVED PT IN BED, ASLEEP, AWAKENS TO VERBAL STIMULI. AOx2. ON NC 3LPM AND TOLERATING WELL. NO SOB NOTED. NO S/SX OF RESPIRATORY DISTRESS NOTED. IV ACCESS IN LAC #18G AND RCW PERMACATH. IV IS INTACT, PATENT, AND FLUSHING WELL. SAFETY PRECAUTIONS IN PLACE: BED IN LOWEST, LOCKED POSITION, SIDERAILS UPx2, AND BRAKES ON. TABLE AND CALL LIGHT WITHIN REACH. WILL CONTINUE TO MONITOR FOR LISET.
[2022-05-30 07:43] LABS: CALCIUM, SERUM 6.8 mg/dL (8.5-10.1); CARBON DIOXIDE 23 mmol/L (21-32); CHLORIDE 100 mmol/L (98-107); CREATININE 5.7 mg/dL (0.6-1.3); GLUCOSE 64 mg/dL (74-106); POTASSIUM 4.1 mmol/L (3.5-5.1); SODIUM SERUM 139 mmol/L (136-145); UREA NITROGEN, BLOOD 60 mg/dL (7-18)
[2022-05-30 08:00] VITALS: BP 84/42
[2022-05-30 08:02] LABS: ALANINE AMINOTRANSFERASE 13 U/L (12-78); ALBUMIN 2.5 g/dL (3.4-5.0); ASPARTATE AMINOTRANSFERASE 107 U/L (15-37); BILIRUBIN,TOTAL 1.1 mg/dL (0.2-1.0); TOTAL PROTEIN, SERUM 6.5 g/dL (6.4-8.2)
[2022-05-30 08:11] LABS: PROSTATE SPECIFIC ANTIGEN SCR 257.59 ng/mL (0.00-4.00)
--- NOTE | 2022-05-30 08:23 | NUR ---
REGARDING THORACENTESIS. CALLED IR MD HAN INFORMED ABOUT THORACENTESIS, AND HE IS NOT GOING TO BE ABLE TO COME TODAY AT [facility] TO PERFORM THE THORA, TO BE DONE ON WEDNESDAY, PER MD HE DOES ONLY EMERGENCIES. INFORMED RN AND THE CHARGE NURSE
[2022-05-30 08:46] LABS: ALKALINE PHOSPHATASE 4701 U/L (46-116)
[2022-05-30] MEDS: CARVEDILOL 3.125 MG TABLET PO SCH ×2 (09:00→16:21)
[2022-05-30 09:09] LABS: MAGNESIUM 2.1 mg/dL (1.8-2.4); PHOSPHORUS 4.4 mg/dL (2.5-4.9)
[2022-05-30] MEDS: VITAMINS A AND D 56.7 GM TUBE TP SCH ×2 (09:38→16:08)
[2022-05-30] MEDS: ACIDOPHILUS/BULGARICUS 1 EACH TAB.CHEW PO SCH ×3 (09:42→16:21)
[2022-05-30] MEDS: ALLOPURINOL 100 MG TABLET PO SCH (09:42)
[2022-05-30] MEDS: BICALUTAMIDE 50 MG TABLET PO SCH (09:42)
[2022-05-30] MEDS: ALBUMIN 25% 25 GM in PREMIX 1 EA IV PRN (10:45)
[2022-05-30] MEDS ORDERED: NEPRO VAN 237 ML CAN PO PRN (12:30)
[2022-05-30 16:00] VITALS: BP 117/50
[2022-05-30] MEDS: TAMSULOSIN 0.4 MG CAP.SR.24H PO SCH (17:20)
--- NOTE | 2022-05-30 19:40 | NUR ---
MS RN CLOSING NOTES PT IS LYING COMFORTABLY IN BED, AND HE IS AOx2. ON NC 3LPM AND TOLERATING WELL. NO SOB NOTED. NO S/SX OF RESPIRATORY DISTRESS NOTED. IV ACCESS IN LAC #18G AND RCW PERMACATH. IV IS INTACT, PATENT, AND FLUSHING WELL. SAFETY PRECAUTIONS IN PLACE: BED IN LOWEST, LOCKED POSITION, SIDERAILS UPx2, AND BRAKES ON. TABLE AND CALL LIGHT WITHIN REACH. WILL ENDORSE TO INCOMING SHIFT FOR LISET.
--- NOTE | 2022-05-30 20:42 | NUR ---
MS/TELE/RN RECEIVE PATIENT LYING IN BED AWAKE, ALERT, ORIENTED TO PERSON ONLY, APPEARS COMFORTABLE, NO SIGNS OF DISTRESS NOTED FALL PRECAUTIONS PER PROTOCOL IMPLEMENTED, NEEDS ATTENDED, MARGRET VILLANUEVA.
[2022-05-30] MEDS: SENNOSIDES 8.6 MG TABLET PO SCH (22:14)
[2022-05-30] MEDS: TRAZODONE 50 MG TABLET PO SCH (22:15)
--- NOTE | 2022-05-31 05:59 | NUR ---
MS/TELE/RN PATIENT IS AWAKE, NO DISTRESS NOTED, CALL LIGHT IN REACH, ON AND OFF SLEEP WAS NOTED DURING THE SHIFT, ALL NEEDS ATTENDED AT THIS TIME, WILL CONTINUE TO MONITOR.
--- NOTE | 2022-05-31 07:30 | NUR ---
MS RN OPENING NOTES RECEIVED PT IN BED, ASLEEP, AWAKENS TO VERBAL STIMULI. AOx2. ON NC 3LPM AND TOLERATING WELL. NO SOB NOTED. NO S/SX OF RESPIRATORY DISTRESS NOTED. IV ACCESS IN R AC #18G AND RCW PERMACATH. IV IS INTACT, PATENT, AND FLUSHING WELL. SAFETY PRECAUTIONS IN PLACE: BED IN LOWEST, LOCKED POSITION, SIDERAILS UPx2, AND BRAKES ON. TABLE AND CALL LIGHT WITHIN REACH. WILL CONTINUE TO MONITOR FOR LISET.
[2022-05-31] MEDS: FAMOTIDINE (20 MG) 20 MG TABLET PO SCH (08:01)
[2022-05-31 09:00] VITALS: BP 80/44
[2022-05-31] MEDS: CARVEDILOL 3.125 MG TABLET PO SCH (09:00)
[2022-05-31] MEDS: ACIDOPHILUS/BULGARICUS 1 EACH TAB.CHEW PO SCH ×2 (09:54→13:00)
[2022-05-31] MEDS: BICALUTAMIDE 50 MG TABLET PO SCH (09:54)
[2022-05-31] MEDS: ALLOPURINOL 100 MG TABLET PO SCH (09:54)
[2022-05-31] MEDS: VITAMINS A AND D 56.7 GM TUBE TP SCH (09:55)
--- NOTE | 2022-05-31 12:00 | NUR ---
MS RN NOTES PATIENT WAS PRONOUNCED @ 1140. DR. ARSHAD CAME TO THE SCENE AND CHECKED THE PATIENT @ 1137, AND SHE FOUND HIM NOT BREATHING AND NO PULSE. SHELL RN DID FURTHER ASSESSMENTS, AND PATIENT WAS PEACEFULLY LYING IN BED, NO PULSE AND RESPIRATION. MORTUARY CARE WAS DONE AND "RECORD OF /AUTHORIZATION FOR RELEASE OF REMAINS" ARE FILLED UP. [facility] CALLED @ 1145 AND TALKED TO [facility]; THE CASE #: [id number]. DR. 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 DR. PALOMO CALLED THE FAMILY MEMBER 3 TIMES AND LEFT A MESSAGE ABOUT THE PASSING.
== END 2022-05-31 11:40 | DRG 291 ==
LOC: ER 18:45 → TELE 21:38 → MED 05-24 12:56
PROVIDERS: ADMIT Nurse Practitioner Acute Care; ATTEND Nurse Practitioner Acute Care
PROC: 5A1D70Z Performance of Urinary Filtration, Intermittent, Less than 6 Hours Per Day (ICD-10-PCS; principal; 2022-05-22)
DX: I13.2 Hypertensive heart and chronic kidney disease with heart failure and with stage 5 chronic kidney disease, or end stage renal disease (principal); I50.43 Acute on chronic combined systolic (congestive) and diastolic (congestive) heart failure; J96.21 Acute and chronic respiratory failure with hypoxia; N18.6 End stage renal disease; J90 Pleural effusion, not elsewhere classified; D68.9 Coagulation defect, unspecified; C79.51 Secondary malignant neoplasm of bone; C78.7 Secondary malignant neoplasm of liver and intrahepatic bile duct; Z99.2 Dependence on renal dialysis; Z20.822 Contact with and (suspected) exposure to COVID-19; Z66 Do not resuscitate; Z95.1 Presence of aortocoronary bypass graft; I25.10 Atherosclerotic heart disease of native coronary artery without angina pectoris; M10.9 Gout, unspecified; Z79.899 Other long term (current) drug therapy; D63.1 Anemia in chronic kidney disease; D69.6 Thrombocytopenia, unspecified; E27.8 Other specified disorders of adrenal gland; D50.9 Iron deficiency anemia, unspecified; I34.0 Nonrheumatic mitral (valve) insufficiency; L85.3 Xerosis cutis; L89.156 Pressure-induced deep tissue damage of sacral region; M62.50 Muscle wasting and atrophy, not elsewhere classified, unspecified site; S41.112A Laceration without foreign body of left upper arm, initial encounter; S41.111A Laceration without foreign body of right upper arm, initial encounter; X58.XXXA Exposure to other specified factors, initial encounter; Y92.9 Unspecified place or not applicable; K62.89 Other specified diseases of anus and rectum; K74.60 Unspecified cirrhosis of liver; D47.2 Monoclonal gammopathy; N39.9 Disorder of urinary system, unspecified; R74.8 Abnormal levels of other serum enzymes; C80.1 Malignant (primary) neoplasm, unspecified
CPT/HCPCS: 36415; 36600; 71045-TC; 71260-TC; 74181-TC; 76705-TC; 77075-TC; 80048-TC; 80053-TC; 80061-TC; 80076-TC; 82105; 82232; 82272-TC; 82378; 82607-TC; 82728-TC; 82784; 83540-TC; 83605-TC; 83615-TC; 83735-TC; 83880; 84100-TC; 84153-TC; 84154-TC; 84155; 84165; 84443-TC; 84484-TC; 85025-TC; 85610-TC; 85730-TC; 86140-TC; 86225; 86235; 86301; 86334; 86431-TC; 86706; 86803; 87040-TC; 87081-TC; 87340; 90935-TC; 93307-TC; 94799-TC; A4216; A4349; A6253; A6403; C9803; G0378; J0885; J7030; J7050; P9047; Q9967